=== PATIENT | male | born 1945 | race Caucasian/White ===

== ENCOUNTER 2016-04-06 20:29 | Inpatient (IN) ==
--- NOTE | 2016-04-06 20:43 | Emergency Department Note ---
Disposition Clinical Impression: Acute exacerbation of CHF (congestive heart failure) Qualifiers: Congestive heart failure type: unspecified congestive heart failure type Qualified Code(s): I50.9 - Heart failure, unspecified Disposition: Admitted As Inpatient Condition: Fair Referrals: NO,PCP [Non-Partnered Physician] - Time of Disposition: 22:25 Arrhythmia/Palpitations HPI - General Chief Complaint: UC Arrhythmia/Palpitations Stated Complaint: Bradycardia, [facility]: patient Limitations: no limitations Nursing Notes Reviewed: Yes Vital Signs Reviewed: Yes - History of Present Illness HPI Narrative: 70-year-old male history of CHF, CABG with triple bypass in July 2015, symptoms with shortness of breath headache, daughters at bedside states patient has had episodes of tachycardia and bradycardia home. He is transferred from the [place] in stable condition, they are concerned that he did have some evidence of possible bronchitis on his exam. He said that his BNP was 12,000. His troponin was negative. Did have a few "apneic episodes at the [place]. they state they have also noticed some recent weight gain, he currently takes frusemide 20 mg twice a day Pt Subjective Complaint: irregular heart beat Onset (ago): day(s) Duration: intermittent Severity: moderate Context: occurred during rest Associated symptoms: Reports: shortness of breath, cough. Denies: syncope - Related Data Home Medications Medication Instructions Recorded Confirmed Albuterol Sulfate [Albuterol 2 puff IH Q6HR PRN 03/09/15 07/05/15 Inhaler] Calcium Acetate [Phos-LO] 667 mg PO TIDWM 03/09/15 07/05/15 Isosorbide MONOnitrate (24 HR) 120 mg PO DAILY 03/09/15 07/05/15 [Imdur] Ranitidine HCl [Zantac] 150 mg PO DAILY 03/09/15 07/05/15 Allopurinol [Zyloprim 100 MG] 200 mg PO DAILY 07/05/15 07/05/15 Amlodipine [Norvasc] 5 mg PO BID 07/05/15 07/05/15 Atorvastatin [Lipitor] 80 mg PO HS 07/05/15 07/05/15 Carvedilol 3.125 mg PO BID 07/05/15 07/05/15 Cetirizine HCl [Zyrtec] 10 mg PO DAILY 07/05/15 07/05/15 Clopidogrel [Plavix] 75 mg PO DAILY 07/05/15 07/05/15 Furosemide [Lasix] 40 mg PO QAM 07/05/15 07/05/15 HydrALAZINE 50 mg PO TID 07/05/15 07/05/15 Lactose-Reduced Food [Ensure 1 bottle PO DAILY 07/05/15 07/05/15 Liquid] Loperamide [Imodium] 2 mg PO TID PRN 07/05/15 07/05/15 Magnesium Oxide [Magnesium] 400 mg PO BID 07/05/15 07/05/15 Nitroglycerin [Nitrostat] 0.4 mg SL AD PRN 07/05/15 07/05/15 Sertraline [Zoloft] 50 mg PO QAM 07/05/15 07/05/15 Previous Rx's Medication Instructions Recorded Aspirin 81 mg PO DAILY tab.chew 03/15/15 Levofloxacin [Levaquin] 500 mg PO DAILY #5 tablet 07/07/15 Allergies Allergy/AdvReac Type Severity Reaction Status Date / Time morphine Allergy Unknown Rash Verified 03/09/15 21:51 ampicillin [From Unasyn] Allergy Hives Verified 07/05/15 10:07 nicotine Allergy Rash Verified 07/05/15 10:06 sulbactam [From Unasyn] Allergy Hives Verified 07/05/15 10:07 lactose AdvReac Nausea Verified 03/09/15 19:53 Review of Systems: A 14 point ROS was obtained and was negative except as per below or as documented in the HPI. Constitutional: Denies: fever, chills, weakness, weight change Eyes: Denies: eye pain, eye discharge, vision change ENT: Denies: ear pain, throat pain, hearing loss, epistaxis, congestion, Cardiovascular: palpitations, dyspnea on exertion, Denies: chest pain, edema, syncope Respiratory: Denies: cough, dyspnea, wheezes, hemoptysis, stridor Gastrointestinal: Denies: abdominal pain, nausea, vomiting. diarrhea, constipation, hematemesis, hematochezia Genitourinary: Denies: urgency, dysuria, frequency, hematuria Musculoskeletal: Denies: back pain, neck pain, arthralgia, myalgia Integumentary: Denies: rash, abrasion, lesions Neurological: Denies: headache, weakness, numbness, paresthesias, confusion, abnormal gait Psychiatric: Denies: anxiety, depression, suicidal thoughts, homicidal thoughts , Endocrine: Denies: fatigue Hematological/Lymphatic: Denies: easy bleeding, easy bruising Allergic/Immunologic: Denies: facial swelling, urticaria All systems ED: reviewed and negative except as stated. Past Medical History - Past Medical History Attestation: Yes The following information was validated with the patient. [facility] Narrative: Patient's medications include, L. All 100 mg twice a day, amlodipine 5 mg, aspirin 81 mg daily, atorvastatin 80 mg daily Plavix 75 mg daily Lasix 20 mg daily, metoprolol 50 mg daily nitroglycerin, prednisone. Source: patient Medical history: Reports: arthritis, asthma, cardiomyopathy, CHF, COPD, coronary artery disease, GERD, hyperlipidemia, hypertension, myocardial infarction, osteoporosis, peripheral artery disease, renal disease, other Surgical history: Reports: angioplasty/stent, carotid endarterectomy, cholecystectomy, LE Bypass, LE vascular intervention, other Psychiatric history: Reports: anxiety, PTSD - Social History Smoking Status: Current every day smoker Smokeless Tobacco Status: No Alcohol use: Reports: none Drug use: Reports: none Physical Exam General: alert and oriented, in NAD, appears stated age, is pleasant and cooperative to exam Head: NCAT, no lesions Eyes: sclera anicteric, conjunctiva normal, PERRLA bilaterally, EOMI Bilaterally Ears: normal inspection, external ear wnl Nose: nasal septum nondeviated, sinuses nontender Throat: good dentition, mucous membranes moist Neck: no lymphadenopathy, trachea midline no deviation, no JVD Resp: Diminished breath sounds at bases CV midline incision well-healed consistent with previous CABG diminished Heart sounds normal S1 and S2, no m/g/r, Pulses +2 Rad, +2 DP/PT Abdomen: Soft, NTND, no hepatosplenomegaly, no hernias, Negative Rovsing's sign , Negative Hill's sign Back: normal inspection, no tenderness to palpation, Negative CVA tenderness bilaterally Neuro: A&O3, CN II-XII grossly intact bilaterally, no motor or sensory deficits bilaterally, gait normal, GCS 15 [id number] Ext: normal inspection, symmetric Active and Passive ROM UE and LE bilaterally, +2 pitting edema bilaterally Psych: normal mood, normal affect Skin: No rashes, skin warm, dry, intact - General Limitations: no limitations General appearance: alert, in no apparent distress Course Course Narrative: 70-year-old male with CHF exacerbation most likely, low pressures mildly elevated will diuresis and give nitroglycerin, lab work showed an elevated BNP, and findings consistent with pneumonia versus pleural effusions, we will recheck x-ray adding troponin and BNP, plan admitted for CHF exacerbation - Reevaluation(s) Reevaluation #1: Troponin negative, BNP 1200, chest x-ray shows bilateral effusions. Diuresis and give nitroglycerin, patient hospitalist for admission Vital Signs Temperature 97.2 F L 04/06/16 20:37 Pulse Rate 55 04/06/16 20:37 Respiratory Rate 18 04/06/16 20:37 Blood Pressure 186/86 04/06/16 20:37 O2 Sat by Pulse Oximetry 97 04/06/16 20:37 Temperature 97.2 F L 04/06/16 20:37 Pulse Rate 55 04/06/16 21:46 Respiratory Rate 18 04/06/16 21:46 Blood Pressure 179/82 04/06/16 21:46 O2 Sat by Pulse Oximetry 98 04/06/16 21:46 Oxygen Delivery Oxygen Delivery Room Air Arrhythmia/Palpitations - [facility] Narrative Medical decision making narrative: 70-year-old male with CHF exacerbation, diurese and given nitroglycerin in the ED, no indication for BiPAP at this time, admitted to Dr. Echavarria in stable condition, - Differential Diagnosis Differential Diagnosis: Likely: palpitations, ventricular premature beats - Medical Records Medical records reviewed: Yes I reviewed the patient's medical records. - Lab Data Lab results reviewed: Yes I reviewed the patient's lab results. Lab results narrative: [place] lab work shows white blood cell 6.2 hemoglobin 11.1 and hematocrit 35.2 platelets 145 Calcium 8.0 chloride 113 bicarbonate 21 creatinine 2.25 glucose 100 potassium 4.4 sodium 144 BUS and 28 GFR 30 Lab Results 04/06/16 04/06/16 Range/Units 21:55 21:55 Troponin I 0.02 (0-0.03) ng/mL B-Natriuretic Peptide 1267 H (0-100) pg/mL - Radiology Data Radiology results reviewed: Yes I reviewed the patient's radiology results. Chest X-Ray 04/06/16 20:42 IMPRESSION: Bilateral pleural effusions and bilateral lower lobe airspace disease greater on the right. CHF is suspected. D/ / 04/06/2016 21:58:07 Frankie Ryan MD / Jessenia Busby Interpreting Provider: Frankie Ryan MD - EKG Data EKG attestation: Yes I reviewed and interpreted this EKG. Rate: bradycardia (Sinus bradycardia rate of 54 bpm NJ 184 QRS 111, QTC 493,) ST segment depression in: v5, v6 T wave inversions noted in: v5, v6 Interpretation: nonspecific ST-T wave changes (Changes seen from EKG on 2015.) - Core Measures AMI Core Measures Followed: Yes Attestation Statement - Attestation Attestation: I examined this patient and my medical decision-making was reviewed with the ENVIRONMENT COORDINATOR/PA/Advanced Practice Nurse/Resident Physician. I agree with the documented findings, disposition and treatment plan as described except to the extent set forth below. Patient sent to the emergency department from the [facility]. Patient apparently was having periods of bradycardia alternating with tachycardia. Patient states he feels fine at this time. Exam shows him awake alert no distress. Clear lungs. Midline sternotomy scar. Heart regular. Plan. Cardiac workup.
[2016-04-06] MEDS ORDERED: Aspirin 81 MG TAB.CHEW PO ONE (21:18)
[2016-04-06] MEDS ORDERED: 0.9 % Sodium Chloride 1,000 ML IV ONE ×2 (21:49)
[2016-04-06] MEDS ORDERED: Furosemide 40 MG/4 ML VIAL IVP ONE (22:14)
[2016-04-06] MEDS ORDERED: Nitroglycerin 0.4 MG TAB.SUBL SL ONE (22:21)
[2016-04-06] MEDS ORDERED: Ondansetron 4 MG/2 ML VIAL IVP PRN (23:24)
--- NOTE | 2016-04-07 00:56 | Internal Med History&Physical ---
Date of Encounter: 04/07/16 Time of Encounter: 00:30 Assessment and Plan (1) CHF (congestive heart failure) Current visit: Yes Status: Acute Patient reports some shortness of breath and dry cough. Examination reveals bilateral basal crepitations and reduced breath sounds bilaterally. Chest x-ray personally reviewed-reveals bilateral pleural effusions right greater than left. Sternal wires are seen. Patient will be admitted to the hospital to inpatient status due to acute CHF. Echocardiogram. Cardiology consult. He will be given an additional dose of Lasix. Fluid restricted diet. Cycle cardiac enzymes. Expect the patient to stay in the hospital at least 2 midnights. Expected discharge disposition is to home. High risk due to risk of lethal arrhythmias. Qualifiers: Congestive heart failure type: unspecified congestive heart failure type Congestive heart failure chronicity: acute Qualified Code(s): I50.9 - Heart failure, unspecified (2) Bradycardia Current visit: Yes Status: Acute Patient was noted to be bradycardic at the [place] urgent care with heart rate in the 30s. His current heart rate is in the 50s. Hold AV sarah blocking agents. Suspicion for tachybradycardia syndrome. Cardiology consult. Cycle cardiac enzymes. (3) COPD (chronic obstructive pulmonary disease) Current visit: Yes Status: Chronic Stable and not an acute exacerbation. Home breathing treatments will be continued. Qualifiers: COPD type: chronic bronchitis Chronic bronchitis type: simple Qualified Code(s): J41.0 - Simple chronic bronchitis (4) CAD (coronary artery disease) Current visit: Yes Status: Chronic Continue aspirin, statin. Hold beta cassandra due to bradycardia. Cardiology consult. Obtain records from [place]. Qualifiers: Coronary Disease-Associated Artery/Lesion type: grayling artery [place] vs. transplanted heart: grayling heart Associated angina: without angina Qualified Code(s): I25.10 - Atherosclerotic heart disease of grayling coronary artery without angina pectoris (5) CKD (chronic kidney disease) stage 3, GFR 30-59 ml/min Current visit: Yes Status: Chronic Creatinine appears to be at baseline. Monitor renal function with diuresis. Avoid nephrotoxic agents and hypotension. (6) Tobacco abuse Current visit: Yes Status: Chronic Counseled regarding smoking cessation. Patient not interested to quit smoking. Internal Medicine - H&P: HPI Chief complaint: Bradycardia Admitted From: Hospital to Hospital Transfer Plans for Post Hospital Care: Home History of present illness: Mr. Pal is a 70 year old male with a history of coronary artery disease status post 5 vessel CABG in July 2015 at [facility] in [place] was brought to the emergency room at [facility] by the family due to variable pulse rate in low oxygen levels. Patient is accompanied by his daughter and granddaughter in the room who have assisted with providing history. History was also obtained by reviewing the records from emergency medical services and [place] visit records. Patient was found to have a pulse rate between 40-200 by the family at home and his saturations were found to be 85% and hence the patient was taken to the [place] emergency room. When his vitals were obtained by emergency services, his pulse rate was 53 woman at an desaturation was 91 percent on room air. The family states that the patient had up to 5 apneic episodes associated with heart rate dropping into the 30s while he was in the emergency room at [place]. Hence, the patient was transferred to [facility]. The daughter reports that the patient's usual dry weight is 174 pounds however, his recent weight is 208 pounds according to the daughter. She reports that he has also been complaining of some shortness of breath and chest pain. The patient himself denies any orthopnea or paroxysmal nocturnal dyspnea. He denies any fever or chills, runny nose, nasal congestion. He denies any nausea , vomiting, abdominal pain, diarrhea or constipation. Past Med Surg Social Fam HX - Past Medical History Attestation: Yes The following information was validated with the patient. Source: patient, obtained from family Medical history: arthritis, cardiomyopathy, CHF, COPD, coronary artery disease, GERD, hyperlipidemia, hypertension, myocardial infarction, osteoporosis, peripheral artery disease, renal disease, other Psychiatric history: anxiety, PTSD - Past Surgical History Surgical History: angioplasty/stent, carotid endarterectomy, cholecystectomy, coronary bypass (CABG) (5 vessel in 07/2015), LE Bypass, LE vascular intervention , other - Social History Smoking Status: Current every day smoker Packs per day: 1/3 Smokeless Tobacco Status: No Alcohol use: none Drug use: none Current living situation: Home, With Family - Family History Mother Living Status: Hx Family Cardiac Disorders: Yes (SD) Internal Medicine - H&P: Meds Albuterol Sulfate [Albuterol Inhaler] 2 puff IH Q6HR PRN 03/09/15 [History] Calcium Acetate [Phos-LO] 667 mg PO TIDWM 03/09/15 [History] Isosorbide MONOnitrate (24 HR) [Imdur] 120 mg PO DAILY 03/09/15 [History] Ranitidine HCl [Zantac] 150 mg PO DAILY 03/09/15 [History] Aspirin 81 mg PO DAILY tab.chew 03/15/15 [Rx] Allopurinol [Zyloprim 100 MG] 200 mg PO DAILY 07/05/15 [History] Amlodipine [Norvasc] 5 mg PO BID 07/05/15 [History] Atorvastatin [Lipitor] 80 mg PO HS 07/05/15 [History] Carvedilol 3.125 mg PO BID 07/05/15 [History] Cetirizine HCl [Zyrtec] 10 mg PO DAILY 07/05/15 [History] Clopidogrel [Plavix] 75 mg PO DAILY 07/05/15 [History] Furosemide [Lasix] 40 mg PO QAM 07/05/15 [History] HydrALAZINE 50 mg PO TID 07/05/15 [History] Lactose-Reduced Food [Ensure Liquid] 1 bottle PO DAILY 07/05/15 [History] Loperamide [Imodium] 2 mg PO TID PRN 07/05/15 [History] Magnesium Oxide [Magnesium] 400 mg PO BID 07/05/15 [History] Nitroglycerin [Nitrostat] 0.4 mg SL AD PRN 07/05/15 [History] Sertraline [Zoloft] 50 mg PO QAM 07/05/15 [History] Levofloxacin [Levaquin] 500 mg PO DAILY #5 tablet 07/07/15 [Rx] Allergies morphine Allergy (Unknown, Verified 03/09/15 21:51) Rash ampicillin [From Unasyn] Allergy (Verified 07/05/15 10:07) Hives nicotine Allergy (Verified 07/05/15 10:06) Rash Nicotine patch sulbactam [From Unasyn] Allergy (Verified 07/05/15 10:07) Hives lactose Adverse Reaction (Verified 03/09/15 19:53) Nausea All Systems PM: A 10-system review of systems was performed and is negative for pertinent findings except as documented above in the HPI. Review of systems: 10 systems have been reviewed and are negative except as mentioned in the history of present illness - Constitutional Vitals: Temp Pulse Resp BP Pulse Ox 97.2 F L 45 18 185/76 97 04/06/16 20:37 04/07/16 00:00 04/07/16 00:36 04/07/16 00:36 04/07/16 00:00 Exam: Gen.: Lying in bed. No acute distress. Eyes: Pupils equal, round and reactive to light. Extraocular muscles intact. ENT: Moist mucous membranes. No oropharyngeal erythema or discharge. Chest: Reduced breath sounds bilateral lower lobes with minimal crepitations. Midline CABG scar CVS: First and second heart sounds present. No murmurs, rubs or gallops. 2+ bilateral pitting pedal edema. Abdomen: Soft, nontender, nondistended. Bowel sounds present. No hepatosplenomegaly. Skin: No decubitus ulcers appreciated. DATA GOVERNANCE CONSULTANT: No focal neuro deficits present. Psychiatric: Alert, awake and oriented to time, place and person. Lymphatic system: No lymphadenopathy appreciated Internal Med - H&P Results - EKG Data -: EKG Interpreted by Myself EKG shows normal: sinus rhythm, ST-T waves (T inversions in lateral leads) - EKG Data Prior EKG available for review: yes When compared to previous EKG: there are significant changes Interpretation IM: suggestive of ischemia - Diagnostic Studies Chest x-ray Status: image reviewed by me (Bilateral pleural effusions and pulmonary vessel congestion suggestive of CHF)
[2016-04-07] MEDS ORDERED: Furosemide 40 MG/4 ML VIAL IVP ONE (01:21)
[2016-04-07] MEDS ORDERED: cloNIDine HCl 0.1 MG TABLET PO ONE (02:55)
[2016-04-07] MEDS ORDERED: hydrALAZINE 25 MG TABLET PO SCH (03:00)
[2016-04-07] MEDS: amLODIPine 5 MG TABLET PO SCH (04:55)
[2016-04-07 05:19] LABS: Hematocrit 38.5 % (37.5-50.1); Hemoglobin 12.5 g/dL (12.9-16.9); Mean Corpuscular HGB Conc 32.5 g/dL (31.6-35.5); Mean Corpuscular Hemoglobin 30.3 pg (28.0-33.3); Mean Corpuscular Volume 93.4 fL (83.0-100.0); Platelet Count 149 K/mcL (140-400); Red Blood Count 4.12 M/mcL (4.19-5.50); Red Cell Distribution Width 15.3 % (11.5-14.5)
[2016-04-07 05:54] LABS: Albumin 3.1 g/dL (3.5-5.0); Albumin/Globulin Ratio 0.8 (1.1-2.2); Bilirubin,Total 0.6 mg/dL (0.2-1.2); Calcium 9.1 mg/dL (8.6-10.8); Total Protein 7.1 g/dL (6.0-8.3)
--- NOTE | 2016-04-07 09:02 | Internal Med Progress Note ---
<Ant Busby - Last Filed: 04/07/16 13:55> Date of Encounter: 04/07/16 Time of Encounter: 08:58 - Assessment and plan (1) Pneumonia Current Visit: Yes Status: Acute Assessment and plan: Pt. with dry cough and SOB. CAP vs Aspiration PNA vs. CHFE Coarse Rhonchi throughout lung rico. Last Echo, July 2015: EF 60%, mild diastolic dysfunction, dilated RV, LAE, moderate mitral regurg, mild pulm htn CXR: BL pl. effusions. Chest CT: Moderate right and small left pleural effusion with adjacent opacities , right greater than left. Findings are compatible with pulmonary edema with probable superimposed right lower lobe pneumonia. Vitals stable, afebrile no tachy or tachypnea O2 currently sat 94% on RA. Urinary antigens pending Blood cx pending sputum cx pending Resp Panel: Negative Empiric abx started, Rocephin and Azithromycin (Day 1) Chest CT 04/07/16 09:20 IMPRESSION: 1. Moderate right and small left pleural effusion with adjacent opacities, right greater than left. Findings are compatible with pulmonary edema with probable superimposed right lower lobe pneumonia. 2. Severe atherosclerosis. 3. Cardiomegaly. 4. Reactive mediastinal lymph nodes. D/ / 04/07/2016 10:55:15 Petty Gill MD / [facility] Interpreting Provider: Petty Gill MD Qualifiers: Pneumonia type: due to unspecified organism Laterality: bilateral Lung location: lower lobe of lung Qualified Code(s): J18.9 - Pneumonia, unspecified organism (2) CHF (congestive heart failure) Current Visit: Yes Status: Acute Assessment and plan: Patient reports some shortness of breath and dry cough. Lung field reveal global coarse rhonchi. Chest x-ray reveals bilateral pleural effusions right greater than left. Trop - x2 Has received two IVP of 40mg Lasix, is currently on 1.5l fluid restriction No LE edema noted. BNP 1267. Hx of Stage IV CKD, so BNP may not be related to acute CHFE. Echocardiogram. Cardiology consulted. IV lasix 40mg BID. Hx of CKD, monitor renal function closely. Chest X-Ray 04/06/16 20:42 IMPRESSION: Bilateral pleural effusions and bilateral lower lobe airspace disease greater on the right. CHF is suspected. D/ / 04/06/2016 21:58:07 Frankie Ryan MD / Jessenia Busby Interpreting Provider: Frankie Ryan MD Qualifiers: Congestive heart failure type: unspecified congestive heart failure type Congestive heart failure chronicity: acute Qualified Code(s): I50.9 - Heart failure, unspecified (3) Bradycardia Current Visit: Yes Status: Acute Assessment and plan: suspected, asymptomatic Per family patient has been having bradycardia at home At the [facility] he was found to be bradycardic into the 30's Cards consulted On 25mg qday Toprol XL -Will hold d/t bradycardia Has had a low HR of 49 since admission Trop - X2 (4) CAD (coronary artery disease) Current Visit: Yes Status: Chronic Assessment and plan: CAD s/p 5 vessel CABG Continue home meds except BB d/t bradycardia ASA, plavix, statin. Qualifiers: Coronary Disease-Associated Artery/Lesion type: [place] artery [place] vs. transplanted heart: [place] heart Associated angina: without angina Qualified Code(s): I25.10 - Atherosclerotic heart disease of [place] coronary artery without angina pectoris (5) CKD (chronic kidney disease) stage 4, GFR 15-29 ml/min Current Visit: No Status: Acute Assessment and plan: Personnel Representative close to baseline, 2.30 GFR: 28, appears to be at baseline will continue to diurese slowly for pleural effusions, and monitor renal fxn. (6) COPD (chronic obstructive pulmonary disease) Current Visit: Yes Status: Chronic Assessment and plan: still smoking. continue home meds. Qualifiers: COPD type: chronic bronchitis Chronic bronchitis type: simple Qualified Code(s): J41.0 - Simple chronic bronchitis (7) Tobacco abuse Current Visit: Yes Status: Chronic Assessment and plan: still smoking. smoking cessation counseling given (8) DVT prophylaxis Current Visit: No Status: Acute Assessment and plan: SCD's - Subjective Interval history: Patient seen and examined. This is a [facility] patient who submitted for possible CHF exacerbation last night. He has a history of coronary artery disease status post 5 vessel cabbage in 2016. He went to the [facility] for slow heart rate and then a fast heart rate along with oxygen desaturations. He appears to be encephalopathic but it is unclear at this time if that is his baseline are not. Was relayed by his family that at home they found his pulse rate to be between 40 and 200 and his oxygen saturations were 85%. This morning patient is awake and alert but only oriented times 2. He appears to be confused. He told me he fell yesterday but he did not have his head. He denies any chest pain and shortness of breath nausea vomiting diarrhea. He is a very poor historian. - Constitutional Vitals: Temp Pulse Resp BP Pulse Ox 97.3 F L 49 15 132/51 96 04/07/16 07:49 04/07/16 07:49 04/07/16 07:49 04/07/16 07:49 04/07/16 07:49 General appearance: Present: disheveled, A&O X 2. Absent: answers questions appropriately (slow to respond. ) - Head Head exam: Present: atraumatic, normocephalic - Eye Eye exam: Present: PERRL, conjuntiva pink, sclera anicteric - Neck Neck exam general surgery: Present: supple, trachea midline. Absent: lymphadenopathy - Respiratory Respiratory exam: Present: rhonchi. Absent: CTAB - Cardiovascular Cardiovascular exam: Present: RRR, +S1, +S2 - GI/Abdominal GI/Abdominal exam: Present: normal bowel sounds, soft, no peritoneal signs. Absent: distended, tenderness - Extremities Exam Extremities exam: Present: warm, radial pulses palpable and symetrical. Absent : calf tenderness, cyanotic, pedal edema - Neurological Exam Neurological exam: Present: alert, altered (unclear if baseline or not), CN II- XII intact, no focal deficits. Absent: oriented X3, speech deficit - Skin Skin exam: Present: dry, intact Internal Medicine: Result - Labs CBC & Chem 7: 04/07/16 04:37 04/07/16 12:46 Labs: Short CBC 04/07/16 Range/Units 04:37 WBC 5.7 (4.3-11.1) K/mcL Hgb 12.5 L (12.9-16.9) g/dL Hct 38.5 (37.5-50.1) % Plt Count 149 (140-400) K/mcL BMP 04/07/16 04:37 Sodium 140 Potassium 5.0 H Chloride 113 H Carbon Dioxide 18 L BUN 30 H Creatinine 2.30 H Glucose 147 H Calcium 9.1 Cardiac Enzymes 04/07/16 Range/Units 04:37 Troponin I 0.01 (0-0.03) ng/mL Liver Function 04/07/16 Range/Units 04:37 Total Bilirubin 0.6 (0.2-1.2) mg/dL AST 23 (5-34) Units/L ALT 12 (0-55) Units/L Alkaline Phosphatase 172 H (38-126) Units/L Albumin 3.1 L (3.5-5.0) g/dL - VTE Documentation of Mechanical Device: Intermittent pneumatic compression device Consult Discharge Plan - Plan [facility]errals: [facility] [Primary Care Provider[facility] - <Beryl Angulo - Last Filed: 04/07/16 19:05> Date of Encounter: 04/07/16 - Constitutional Vitals: Temp Pulse Resp BP Pulse Ox 97.5 F L 55 18 120/54 94 L 04/07/16 16:18 04/07/16 16:18 04/07/16 16:18 04/07/16 16:18 04/07/16 16:18 Internal Medicine: Result - Labs CBC & Chem 7: 04/07/16 04:37 04/07/16 12:46 Labs: Short CBC 04/07/16 Range/Units 04:37 WBC 5.7 (4.3-11.1) K/mcL Hgb 12.5 L (12.9-16.9) g/dL Hct 38.5 (37.5-50.1) % Plt Count 149 (140-400) K/mcL BMP 04/07/16 04/07/16 04:37 12:46 Sodium 140 140 Potassium 5.0 H 4.9 H Chloride 113 H 112 H Carbon Dioxide 18 L 19 BUN 30 H 34 H Creatinine 2.30 H 2.38 H Glucose 147 H 139 H Calcium 9.1 8.7 Cardiac Enzymes 04/07/16 04/07/16 Range/Units 04:37 08:43 Troponin I 0.01 0.02 (0-0.03) ng/mL Liver Function 04/07/16 04/07/16 Range/Units 04:37 12:46 Total Bilirubin 0.6 (0.2-1.2) mg/dL AST 23 (5-34) Units/L ALT 12 (0-55) Units/L Alkaline Phosphatase 172 H (38-126) Units/L Albumin 3.1 L 2.8 L (3.5-5.0) g/dL Urine 04/07/16 Range/Units 18:06 Urine Color Light Yellow (Yellow) Urine Clarity Clear (Clear) Urine pH 6.0 (5.0-8.0) pH Units Ur Specific [place] 1.012 (1.010-1.025) Urine Protein 100 H (Neg-Trace) mg/dL Urine Glucose (UA) Normal (Normal) mg/dL - Impressions Impressions Chest CT 04/07/16 09:20 IMPRESSION: 1. Moderate right and small left pleural effusion with adjacent opacities, right greater than left. Findings are compatible with pulmonary edema with probable superimposed right lower lobe pneumonia. 2. Severe atherosclerosis. 3. Cardiomegaly. 4. Reactive mediastinal lymph nodes. D/ / 04/07/2016 10:55:15 Petty Gill MD / [employer] Interpreting Provider: Petty Gill MD Head CT 04/07/16 09:22 IMPRESSION: No acute intracranial abnormality. D/ / Miguel Angel Cheng MD / Miguel Angel Cheng MD Interpreting Provider: Miguel Angel Cheng MD - Attending Attestation I examined this patient and my medical decision-making was reviewed with the Resident Physician. I agree with the documented findings, disposition and treatment plan as described except to the extent set forth below. the sob possible 2/2 pneumonia and the pleural effusion may be parapneumonic which is more on the right. however, patinet does not have any fever or leucocytosis. will emperically treat for pneumonia at this time and follow cx results. ECHO with normal LV and RV function. as per cardio, the sinus bradycardia does not need further evaluation at this time. BB has been held.
[2016-04-07] MEDS: Aspirin Enteric Coated 81 MG Tablet PO SCH (09:33)
[2016-04-07] MEDS: Calcium Acetate 667 MG CAPSULE PO SCH ×3 (09:33→16:29)
[2016-04-07] MEDS: Isosorbide MONOnitrate (24 HR) 60 MG TAB.ER.24H PO SCH (09:34)
--- NOTE | 2016-04-07 10:36 | Electrocardiograph Report ---
[facility] Test Date: 2016-04-06 Pat Name: Сергей Pal Department: 105 Room: 2A55 Gender: M Maintenance Superintendent: ELAYNE : 1945 Requested By: Wade Browne Order Number: [id number] Reading MD: Pradeep Lott DO Measurements Intervals [place] Rate: 54 P: 18 IA: 184 QRS: 22 QRSD: 111 T: 152 QT: 506 QTc: 493 Interpretive Statements Sinus bradycardia Anteroseptal infarction, age undetermined Lateral ST-T chagnes possibly due to ischemia Electronically Signed On 04-07-16 10:35:35 EST by Pradeep Lott DO
[2016-04-07 13:10] LABS: Albumin 2.8 g/dL (3.5-5.0); Calcium 8.7 mg/dL (8.6-10.8); Phosphorous 4.3 mg/dL (2.3-4.7); Potassium 4.9 mEq/L (3.5-4.5)
--- NOTE | 2016-04-07 13:22 | ECHO - Doppler Report ---
Echocardiogram Name: Сергей Pal Date of Study: 04/07/2016 Date: 1945 Ht: 71.0 in Medical Record#: [id number] Age: 70 Wt: 199.0 lb Gender: Male BSA: 2.1 Order #: [id number] Location: [facility] Room #: 2A55 Reading Physician: Pradeep Lott DO, FACC, GLORIA, SIMONA Elementary Reading Specialist: Monika Rich, RVT, [facility] Ordering Physician: Tim Tucker MD Primary Physician: [facility] Indications: Shortness of breath Impressions: LVEF 55%. Normal LV chamber size and function. Mild concentric left ventricular hypertrophy. Atypical septal motion consistent with bundle branch block. Mild left ventricular diastolic dysfunction. Normal right ventricular structure and function. Moderately dilated left atrium. Mild aortic regurgitation. Mild mitral regurgitation. Borderline mild pulmonary hypertension. Estimated RVSP is 36 mmHg. There is a small inferior and inferolateral pericardial effusion present. No evidence of tamponade. Left Ventricular Wall Motion: Rest Echo Findings All wall segments showed normal motion. Findings: Study Quality * Technically adequate exam. ECG Findings * Sinus bradycardia with a bundle branch block. Left Ventricle * LVEF 55%. * Normal LV chamber size and function. * Mild concentric left ventricular hypertrophy. * Atypical septal motion consistent with bundle branch block. * Mild left ventricular diastolic dysfunction. Right Ventricle * Normal right ventricular structure and function. Left Atrium * Moderately dilated left atrium. Right Atrium * Mildly dilated right atrium. Interatrial Septum * No evidence of PFO by color Doppler. Aortic Valve * Trileaflet aortic valve. * Mildly calcified aortic valve leaflets. * Mild aortic regurgitation. * No aortic stenosis. Mitral Valve * Mild mitral annular calcification * Mildly thickened mitral valve leaflets. * Mild mitral regurgitation. * No mitral stenosis. Tricuspid Valve * Normal tricuspid valve structure and function. * Trace tricuspid regurgitation. * Borderline mild pulmonary hypertension. * Estimated RVSP is 36 mmHg. * Estimated RA pressure is 5 mmHg. Pulmonic Valve * Normal pulmonic valve structure and function. * No pulmonic regurgitation. Aorta * Normally sized aortic root. Pericardium * There is a small inferior and inferolateral pericardial effusion present. * No evidence of tamponade. IVC * Normal IVC dimensions and inspiratory collapse. Pulmonary Artery * Normal visualized portions of the main pulmonary artery. History Hypertension Hypercholesteremia History of CAD/PTCA Myocardial Infarction Congestive Heart Failure 07/06/2015 a Previous Echo was performed. Measurements: BP: 182/ 87 2D Normal Values IVSd: 1.30 cm 0.6 - 1.0 cm LVIDd: 5.50 cm 3.7 - 5.6 cm LVPWd: 1.30 cm 0.6 - 1.1 cm LVIDs: 4.40 cm 1.5 - 3.6 cm AO: 2.70 cm < 4.0 cm LA: 4.70 cm 2.0 - 4.0cm %FS: 24.10 cm >25 % LA volume: 87 Mitral Valve Peak E:.97 m/sec Peak A:.87 m/sec E/A Ratio:1.1 Peak E' Lat Luis:4.58 cm/s Peak E' Med Luis:3.02 cm/s E/E' Lat Ratio:21.1 E/E' Med Ratio:32 Aortic Valve AI pressure Half-time: 863.00 msec Tricuspid Valve TV Regurg Peak Grad: 31.00mmHg TV Regurg Peak Luis: 2.79m/sec Updated by Pradeep Lott DO, FACChristiane, GLORIA, SIMONA on 04/07/2016 1:16:01 PM electronically signed on 04/07/2016 1:17:03 PM with status of Final Wall Motion Ugart[place]: 1=Normal, 2=Hypokinesis, 3=Akinesis, 4=Dyskinesis, 5=Aneurysmal, 6=Hyperkinetic, X=Not Visualized (Blank)=Missing
[2016-04-07] MEDS: Furosemide 40 MG/4 ML VIAL IVP SCH ×2 (13:27→21:04)
[2016-04-07 13:40] LABS: Adenovirus Not Detected (Not Detect); Bordetella Pertussis Not Detected (Not Detect); Chlamydophila pneumoniae Not Detected (Not Detect); Coronavirus 229E Not Detected (Not Detect); Coronavirus HKU1 Not Detected (Not Detect); Coronavirus NL63 Not Detected (Not Detect); Coronavirus OC43 Not Detected (Not Detect); Human Metapneumovirus Not Detected (Not Detect); Human Rhinovirus/Enterovirus Not Detected (Not Detect); Influenza A Subtype 2009 H1 Not Detected (Not Detect); Influenza A Untypeable Not Detected (Not Detect); Influenza B Not Detected (Not Detect); Mycoplasma pneumoniae Not Detected (Not Detect); Parainfluenza Virus 1 Not Detected (Not Detect); Parainfluenza Virus 2 Not Detected (Not Detect); Parainfluenza Virus 3 Not Detected (Not Detect); Parainfluenza Virus 4 Not Detected (Not Detect); Respiratory Syncytial Virus Not Detected (Not Detect)
[2016-04-07] MEDS: Azithromycin 500 MG in D5% in Water 250 ML IVPB SCH (15:04)
--- NOTE | 2016-04-07 17:58 | Cardiology Consult Note ---
Date of Encounter: 04/07/16 Time of Encounter: 13:00 Assessment and Plan (1) SOB (shortness of breath) Current Visit: Yes Status: Acute Mr. Pal appears comfortable presently and not SOB. Etiology of his presentation appears secondary to pneumonia. There's no clear evidence of heart failure. His echo returned with normal LV and RV function. (2) Bradycardia Current Visit: Yes Status: Acute Patient's heart rate has been in the 40 and 50's while sleeping which is normal. There is no evidence of high degree AVB. It is reasonable to hold BB at this time. (3) CAD (coronary artery disease) Current Visit: Yes Status: Chronic Mr. Pal declined intervention in June 2015. Troponins have been negative during this hospitalization and EF preserved. No further testing is warranted at this time. Qualifiers: Coronary Disease-Associated Artery/Lesion type: [place] artery [place] vs. transplanted heart: [place] heart Associated angina: without angina Qualified Code(s): I25.10 - Atherosclerotic heart disease of [place] coronary artery without angina pectoris Discussion w patient/family: The patient's family was not present at the bedside. We have no further recommendations at this time. We will sign off. Please call with questions. History of Present Illness Consult date: 04/07/16 Requesting physician: Tim Tucker Consult reason: CAD, bradycardia, CHF Chief complaint: SOB History of present illness: Mr. Pal is a 70 year old male presenting with SOB. He was discovered to have Pneumonia on chest CT and has bilateral pleural effusions. Per family report, his pulse ox was reading heart rates in the 40's to 200's yesterday. Telemetry has demonstrated only sinus bradycardia. The patient is very sleepy when taking history and provides very little. No family is at the bedside. Medical records were reviewed. His history is significant for obstructive CAD. He was admitted in June 2015 and underwent LHC demonstrating significant disease. CABG was recommended. Patient was accepted at [facility] and awaiting transfer but declined and left AMA. Past Med Surg Social Fam HX - Past Medical History Source: unable to obtain, old records reviewed Medical history: arthritis, cardiomyopathy, CHF, COPD, coronary artery disease, GERD, hyperlipidemia, hypertension, myocardial infarction, osteoporosis, peripheral artery disease, renal disease, other Psychiatric history: anxiety, PTSD - Past Surgical History Surgical History: angioplasty/stent, carotid endarterectomy, cholecystectomy, coronary bypass (CABG) (5 vessel in 07/2015), LE Bypass, LE vascular intervention , other - Social History Smoking Status: Current every day smoker Packs per day: 1/ Smokeless Tobacco Status: No Alcohol use: none Drug use: none - Family History Mother History Unknown: Yes Living Status: Hx Family Cardiac Disorders: Yes (IA) Medications and Allergies Albuterol Sulfate [Albuterol Inhaler] 2 puff IH Q6HR PRN 03/09/15 [History] Calcium Acetate [Phos-LO] 667 mg PO TIDWM 03/09/15 [History] Ranitidine HCl [Zantac] 150 mg PO DAILY 03/09/15 [History] Aspirin 81 mg PO DAILY tab.chew 03/15/15 [Rx] Allopurinol [Zyloprim 100 MG] 200 mg PO DAILY 07/05/15 [History] Amlodipine [Norvasc] 5 mg PO DAILY 07/05/15 [History] Atorvastatin [Lipitor] 80 mg PO HS 07/05/15 [History] Cetirizine HCl [Zyrtec] 10 mg PO DAILY 07/05/15 [History] Clopidogrel [Plavix] 75 mg PO DAILY 07/05/15 [History] Furosemide [Lasix] 40 mg PO QAM 07/05/15 [History] Lactose-Reduced Food [Ensure Liquid] 1 bottle PO DAILY 07/05/15 [History] Loperamide [Imodium] 2 mg PO TID PRN 07/05/15 [History] Nitroglycerin [Nitrostat] 0.4 mg SL AD PRN 07/05/15 [History] Sertraline [Zoloft] 50 mg PO QAM 07/05/15 [History] Carboxymethylcellulos/Glycerin [Refresh Optive Gel Eye Drops] 1 drop OP QID 05/23 [History] Cholecalciferol (D-3) [Vitamin D] 1,000 unit PO DAILY 04/07/16 [History] GuaiFENesin/Dextromethorphan [Child Triaminic Cgh-Congst Syr] 5 ml PO Q6H PRN [History] Lidocaine 4% CRM (LMX) [Lmx 4] 1 appl TP TID 04/07/16 [History] Metoprolol XL (24 HR) Succ [Toprol XL] 25 mg PO DAILY 04/07/16 [History] Nitroglycerin [Nitro-Dur] 1 patch TP DAILY 04/07/16 [History] Potassium Chloride [K-Tab ER] 10 meq PO DAILY 04/07/16 [History] Pregabalin [Lyrica] 50 mg PO BID 04/07/16 [History] Ropinirole [Requip] 1 mg PO HS 04/07/16 [History] Tiotropium [Spiriva] 2 puff IH DAILY 04/07/16 [History] Allergies morphine Allergy (Unknown, Verified 03/09/15 21:51) Rash ampicillin [From Unasyn] Allergy (Verified 07/05/15 10:07) Hives nicotine Allergy (Verified 07/05/15 10:06) Rash Nicotine patch sulbactam [From Unasyn] Allergy (Verified 07/05/15 10:07) Hives lactose Adverse Reaction (Verified 03/09/15 19:53) Nausea ROS unobtainable: due to mental status All Systems Review: A 10-system review of systems was performed and is negative for pertinent findings except as documented above in the HPI. Physical Examination Vital Signs, Last 4 Hours Temp Pulse Resp BP Pulse Ox 04/07/16 16:18 97.5 F L 55 18 120/54 94 L General: No Apparent Distress, Other (sleepy, not conversant) HEENT: Atraumatic, Mucus Membranes Moist Neck: Other (JVP difficult to evaluate-patient laying on side and sleeping) Cardiac: Reg Rate and Rhythm, Normal S1 and S2, No Murmur Lungs: Other (poor air entry throughout) Neuro: Other (somnolent, arousable) Extremities: Other (no significant LE edema) Results 04/07/16 04:37 04/07/16 12:46 Lab Results 04/07/16 04/07/16 04/07/16 04:37 04:37 04:37 WBC 5.7 Hgb 12.5 L Hct 38.5 Plt Count 149 Sodium 140 Potassium 5.0 H Chloride 113 H Carbon Dioxide 18 L BUN 30 H Creatinine 2.30 H Glucose 147 H Calcium 9.1 Total Bilirubin 0.6 AST 23 ALT 12 Alkaline Phosphatase 172 H Troponin I 0.01 04/07/16 04/07/16 08:43 12:46 WBC Hgb Hct Plt Count Sodium 140 Potassium 4.9 H Chloride 112 H Carbon Dioxide 19 BUN 34 H Creatinine 2.38 H Glucose 139 H Calcium 8.7 Total Bilirubin AST ALT Alkaline Phosphatase Troponin I 0.02 - Imaging and Cardiology Chest Xray: report reviewed Echo: report reviewed - EKG Interpretation EKG results cardiology: personally reviewed Consult Discharge Plan - Plan [facility]errals: [facility] [Primary Care Provider] -
[2016-04-07 18:31] LABS: Bilirubin,Urine Negative (Negative); Blood,Urine Negative (Negative); Glucose,Urine (UA) Normal (Normal); Ketones,Urine Negative (Negative); Leukocyte Esterase,Urine Negative (Negative); Nitrite,Urine Negative (Negative); Protein,Urine 100 mg/dL (Neg-Trace); Specific Gravity,Urine 1.012 (1.010-1.025); Urobilinogen,Urine Normal (Normal)
[2016-04-07 18:33] LABS: Color,Urine Light Yellow (Yellow)
[2016-04-07 18:34] LABS: Clarity,Urine Clear (Clear)
[2016-04-07 19:01] LABS: Bacteria,Urine None Seen per hpf (None-Few); Hyaline Casts,Urine None Seen per lpf (None-Few); RBC,Urine 0-3 per hpf (0-3); Squamous Epithelial Cell,Urine Few per lpf (None-Few)
[2016-04-07] MEDS: rOPINIRole 1 MG TABLET PO SCH (21:04)
[2016-04-08 07:28] LABS: Basophils % 0.4 %; Eosinophils # 0.1 K/mcL (0.0-0.6); Eosinophils % 0.7 %; Hematocrit 31.9 % (37.5-50.1); Immature Granulocytes % 0.2 % (0-4); Lymphocytes # 1.4 K/mcL (0.6-4.6); Lymphocytes % 14.3 %; Mean Corpuscular HGB Conc 32.3 g/dL (31.6-35.5); Mean Corpuscular Hemoglobin 29.8 pg (28.0-33.3); Mean Corpuscular Volume 92.2 fL (83.0-100.0); Mean Platelet Volume 10.3 fL (9.4-12.4); Monocytes # 0.5 K/mcL (0.0-1.3); Monocytes % 5.2 %; Neutrophils # 7.5 K/mcL (1.6-8.9); Platelet Count 150 K/mcL (140-400); Red Blood Count 3.46 M/mcL (4.19-5.50); Red Cell Distribution Width 15.8 % (11.5-14.5); Segmented Neutrophils % 79.2 %
[2016-04-08 07:35] LABS: Hemoglobin 10.3 g/dL (12.9-16.9)
[2016-04-08 07:41] LABS: Calcium 8.6 mg/dL (8.6-10.8); Phosphorous 3.6 mg/dL (2.3-4.7); Potassium 4.3 mEq/L (3.5-4.5)
[2016-04-08] MEDS: Tiotropium 18 MCG inhalation IH SCH (08:07)
[2016-04-08 08:12] LABS: Calcium 8.5 mg/dL (8.6-10.8)
[2016-04-08 08:13] LABS: Potassium 4.8 mEq/L (3.5-4.5)
[2016-04-08 08:27] LABS: Basophils % 0.2 %; Eosinophils # 0.1 K/mcL (0.0-0.6); Eosinophils % 0.9 %; Hemoglobin 9.9 g/dL (12.9-16.9); Immature Granulocytes % 0.2 % (0-4); Lymphocytes # 1.4 K/mcL (0.6-4.6); Lymphocytes % 14.7 %; Mean Corpuscular HGB Conc 31.9 g/dL (31.6-35.5); Mean Corpuscular Hemoglobin 29.5 pg (28.0-33.3); Mean Corpuscular Volume 92.3 fL (83.0-100.0); Mean Platelet Volume 10.5 fL (9.4-12.4); Monocytes # 0.5 K/mcL (0.0-1.3); Monocytes % 5.4 %; Neutrophils # 7.3 K/mcL (1.6-8.9); Platelet Count 143 K/mcL (140-400); Red Blood Count 3.36 M/mcL (4.19-5.50); Red Cell Distribution Width 15.6 % (11.5-14.5); Segmented Neutrophils % 78.6 %
[2016-04-08] MEDS: Aspirin Enteric Coated 81 MG Tablet PO SCH (09:31)
[2016-04-08] MEDS: Furosemide 40 MG/4 ML VIAL IVP SCH ×2 (09:31→20:24)
[2016-04-08] MEDS: Calcium Acetate 667 MG CAPSULE PO SCH ×3 (09:31→17:20)
[2016-04-08] MEDS: amLODIPine 5 MG TABLET PO SCH (09:32)
[2016-04-08] MEDS: Isosorbide MONOnitrate (24 HR) 60 MG TAB.ER.24H PO SCH (09:32)
[2016-04-08] MEDS: Azithromycin 500 MG in D5% in Water 250 ML IVPB SCH (13:28)
--- NOTE | 2016-04-08 16:02 | Internal Med Progress Note ---
Date of Encounter: 04/08/16 Time of Encounter: 15:59 - Assessment and plan (1) Bradycardia Current Visit: Yes Status: Acute Assessment and plan: suspected, asymptomatic Per family patient has [facility] 30's Cards consulted On 25mg qday Toprol XL -Will hold d/t bradycardia was seen by cardio and do not need any further intervention. (2) CHF (congestive heart failure) Current Visit: Yes Status: Acute Assessment and plan: Chest x-ray reveals bilateral pleural effusions right greater than left. José bro Has received two IVP of 40mg Lasix, is currently on 1.5l fluid restriction No LE edema noted. BNP 1267. cardio recommends no further evaluation at this time Chest X-Ray 04/06/16 20:42 IMPRESSION: Bilateral pleural effusions and bilateral lower lobe airspace disease greater on the right. CHF is suspected. D/ / 04/06/2016 21:58:07 Frankie Ryan MD / Jessenia Busby Interpreting Provider: Frankie Ryan MD Qualifiers: Congestive heart failure type: unspecified congestive heart failure type Congestive heart failure chronicity: acute Qualified Code(s): I50.9 - Heart failure, unspecified (3) Pneumonia Current Visit: Yes Status: Acute Assessment and plan: Pt. with dry cough and SOB. CAP possible aspiration pneumonia. CXR: BL pl. effusions. Chest CT: Moderate right and small left pleural effusion with adjacent opacities , right greater than left. Findings are compatible with pulmonary edema with probable superimposed right lower lobe pneumonia. O2 currently sat 94% on RA. legionella and strep antigen negative. will stop the azithromycin. Blood cx pending sputum cx pending Resp Panel: Negative continue the rocephin day2. Chest CT 04/07/16 09:20 IMPRESSION: 1. Moderate right and small left pleural effusion with adjacent opacities, right greater than left. Findings are compatible with pulmonary edema with probable superimposed right lower lobe pneumonia. 2. Severe atherosclerosis. 3. Cardiomegaly. 4. Reactive mediastinal lymph nodes. D/ / 04/07/2016 10:55:15 Petty Gill MD / thelma Interpreting Provider: Petty Gill MD Qualifiers: Pneumonia type: due to unspecified organism Laterality: bilateral Lung location: lower lobe of lung Qualified Code(s): J18.9 - Pneumonia, unspecified organism (4) CAD (coronary artery disease) Current Visit: Yes Status: Chronic Assessment and plan: CAD s/p 5 vessel CABG Continue home meds except BB d/t bradycardia ASA, plavix, statin. Qualifiers: Coronary Disease-Associated Artery/Lesion type: [place] artery [place] vs. transplanted heart: [place] heart Associated angina: without angina Qualified Code(s): I25.10 - Atherosclerotic heart disease of [place] coronary artery without angina pectoris (5) CKD (chronic kidney disease) stage 3, GFR 30-59 ml/min Current Visit: Yes Status: Chronic - Time Spent With Patient 25 - 35 minutes - Subjective Interval history: seen at the bedside, denies any compliants. denies any chest pain, palpitation, c/o productive sputum with cough. no fever. - Constitutional Vitals: Temp Pulse Resp BP Pulse Ox 97.5 F L 65 16 184/70 94 L 04/08/16 11:53 04/08/16 11:53 04/08/16 11:53 04/08/16 11:53 04/08/16 11:53 General appearance: Present: disheveled, A&O X 2. Absent: answers questions appropriately (slow to respond. ) Exam: neck- supple chest- b/l clear, no added sounds cvs-s1 and s2, no mr/g abd-soft, non tender, bs are present ext- no edema Internal Medicine: Result - Labs CBC & Chem 7: 04/08/16 07:51 04/08/16 07:51 Labs: Short CBC 04/08/16 04/08/16 Range/Units 06:31 07:51 WBC 9.5 D 9.3 (4.3-11.1) K/mcL Hgb 10.3 L D 9.9 L (12.9-16.9) g/dL Hct 31.9 L 31.0 L (37.5-50.1) % Plt Count 150 143 (140-400) K/mcL Neutrophils # 7.5 7.3 (1.6-8.9) K/mcL BMP 04/08/16 04/08/16 06:31 07:51 Sodium 141 141 Potassium 4.3 4.8 H Chloride 111 H 111 H Carbon Dioxide 22 22 BUN 40 H 40 H Creatinine 2.45 H 2.45 H Glucose 104 H 102 H Calcium 8.6 8.5 L Urine 04/07/16 Range/Units 18:06 Urine Color Light Yellow (Yellow) Urine Clarity Clear (Clear) Urine pH 6.0 (5.0-8.0) pH Units Ur Specific [place] 1.012 (1.010-1.025) Urine Protein 100 H (Neg-Trace) mg/dL Urine Glucose (UA) Normal (Normal) mg/dL - Impressions Impressions Chest CT 04/07/16 09:20 IMPRESSION: 1. Moderate right and small left pleural effusion with adjacent opacities, right greater than left. Findings are compatible with pulmonary edema with probable superimposed right lower lobe pneumonia. 2. Severe atherosclerosis. 3. Cardiomegaly. 4. Reactive mediastinal lymph nodes. D/ / 04/07/2016 10:55:15 Petty Gill MD / thelma Interpreting Provider: Petty Gill MD - VTE Documentation of Mechanical Device: Intermittent pneumatic compression device Consult Discharge Plan - Plan [facility]errals[facility] [Primary Care Provider[facility] -
[2016-04-08] MEDS: hydrALAZINE 10 MG TABLET PO SCH ×2 (16:17→17:20)
[2016-04-08] MEDS: *HR* Heparin 5,000 UNIT/ML VIAL SQ SCH (17:20)
[2016-04-08] MEDS: rOPINIRole 1 MG TABLET PO SCH (20:24)
[2016-04-08] MEDS: Acetaminophen 325 MG TABLET PO PRN (20:27)
[2016-04-09] MEDS: hydrALAZINE 10 MG TABLET PO SCH ×4 (00:11→17:15)
[2016-04-09] MEDS ORDERED: Magnesium Sulfate 1 GM in D5% in Water 100 ML IVPB ONE (00:24)
[2016-04-09 01:30] LABS: Magnesium 1.9 mg/dL (1.6-2.6)
[2016-04-09 01:36] LABS: Calcium 8.9 mg/dL (8.6-10.8); Potassium 4.7 mEq/L (3.5-4.5)
[2016-04-09 01:59] LABS: Thyroid Stimulating Hormone 1.336 mcIU/mL (0.350-4.840)
[2016-04-09] MEDS: *HR* Heparin 5,000 UNIT/ML VIAL SQ SCH ×2 (06:17→17:17)
[2016-04-09] MEDS: Tiotropium 18 MCG inhalation IH SCH (08:23)
[2016-04-09] MEDS ORDERED: Aspirin 81 MG TAB.CHEW PO SCH (09:00)
[2016-04-09] MEDS: Furosemide 40 MG/4 ML VIAL IVP SCH ×2 (09:44→20:37)
[2016-04-09] MEDS: Isosorbide MONOnitrate (24 HR) 60 MG TAB.ER.24H PO SCH (09:45)
[2016-04-09] MEDS: Calcium Acetate 667 MG CAPSULE PO SCH ×3 (09:45→17:16)
[2016-04-09] MEDS: amLODIPine 5 MG TABLET PO SCH (09:46)
--- NOTE | 2016-04-09 11:21 | Electrocardiograph Report ---
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
[2016-04-09] MEDS: Aspirin Enteric Coated 81 MG Tablet PO SCH (11:36)
--- NOTE | 2016-04-09 12:10 | Electrocardiograph Report ---
[facility] Test Date: 2016-04-09 Pat Name: Сергей Pal Department: 112 Room: 2A13 Gender: M Carpentry Professional: : 1945 Requested By: Sharath Hernandez Order Number: [id number] Reading MD: Darren Hung MD Measurements Intervals [place] Rate: 108 P: MT: 0 QRS: 37 QRSD: 102 T: 180 QT: 339 QTc: 403 Interpretive Statements ATRIAL FIBRILLATION WITH RAPID VENTRICULAR RESPONSE NONSPECIFIC ST \T\ T-WAVE ABNORMALITY Electronically Signed On 04-09-16 12:08:56 EST by Darren Hung MD
[2016-04-09 12:27] LABS: Basophils % 0.3 %; Eosinophils # 0.3 K/mcL (0.0-0.6); Eosinophils % 4.7 %; Hematocrit 36.3 % (37.5-50.1); Immature Granulocytes % 0.3 % (0-4); Lymphocytes # 1.2 K/mcL (0.6-4.6); Lymphocytes % 17.8 %; Mean Corpuscular Hemoglobin 29.1 pg (28.0-33.3); Mean Corpuscular Volume 91.2 fL (83.0-100.0); Mean Platelet Volume 10.4 fL (9.4-12.4); Monocytes # 0.4 K/mcL (0.0-1.3); Monocytes % 5.9 %; Neutrophils # 4.8 K/mcL (1.6-8.9); Platelet Count 161 K/mcL (140-400); Red Blood Count 3.98 M/mcL (4.19-5.50); Red Cell Distribution Width 15.4 % (11.5-14.5)
[2016-04-09 12:38] LABS: Hemoglobin 11.6 g/dL (12.9-16.9)
[2016-04-09] MEDS: Acetaminophen 325 MG TABLET PO PRN (13:07)
[2016-04-09] MEDS: Azithromycin 500 MG in D5% in Water 250 ML IVPB SCH (13:51)
--- NOTE | 2016-04-09 14:20 | Cardiology Progress Note ---
Date of Encounter: 04/09/16 Time of Encounter: 14:18 Assessment and Plan (1) Tachycardia-bradycardia Current Visit: Yes Status: Acute Pt was bradycardic on admission--HR reportedly as low as 30s-40s. Home Toprol XL 25mg daily was stopped. Echo preserved EF. Since Toprol was stopped, HR has improved. Reconsulted for episodes of tachycardia. 24 hour tele reviewed--AVG HR 81, lowest HR noted 63, fastest 120s--sinus with PACs. Telemetry reads the rate as 130s because it is reading the PACs. Most of the tachycardic episodes correlate around approximate time of PT--with exertion. Pt is asymptomatic. Per RN, HR has been increasing before next dose of Hydralazine is due, then once given, HR improves. Will resume BB at a lower dose than previous--Toprol XL 12.5mg daily. Cardiology will sign off. Reconsult PRN or if HR will not tolerate this low dose BB. Discussion w patient/family: The assessment and plan as outlined above was discussed with the patient and/or family members who expressed understanding and agreement. All questions were answered. Thank you for involving us in the care of your patient. Please call with any questions. I will discuss all the above with Dr. Whitten and make changes as necessary. Subjective Principal diagnosis: Bradycardia Interval history: Cardiology reconsulted. Dr. Whitten was called by RN, who reported HR as high as 130s on tele. Telemetry reviewed--24 hours AVG HR 81. Lowest HR noted 63. When pt becomes tachycardia, he is sinus rhythm with frequent PACs. Highest actual tachycardic event is rate 120s--around the time he was completing PT. Per RN, has faster HR prior to next scheduled Hydralazine doses, then HR improves. Pt denies any chest pain. Reports improved dyspnea. He denies palpitations, dizziness or lightheadedness. Toprol has been on hold due to bradycardia on presentation--now resolved. Objective Vital Signs, Last 4 Hours Temp Pulse Resp BP Pulse Ox 04/09/16 11:34 97.8 F 86 14 154/76 95 Vital Signs Temp Pulse Resp BP Pulse Ox 04/09/16 11:34 97.8 F 86 14 154/76 95 04/09/16 08:24 16 95 04/09/16 07:13 97.6 F 64 16 162/69 95 04/09/16 01:04 97.3 F L 69 16 165/69 96 04/08/16 20:40 97.4 F L 65 20 155/61 95 04/08/16 17:07 97.5 F L 78 18 143/64 95 Intake and Output 04/08/16 04/09/16 04/09/16 23:59 07:59 15:59 Intake Total 500 / 500 340 / 340 Output Total 2099 1200 / 1200 Balance -1600 / -1600 -1200 / -1200 340 / 340 Intake: IV Fluids 100 / 100 Rocephin 1,000 MG In 100 / 100 Dextrose 5% (Minibag+) 100 ML 100 ML @ 200 mls/ hr IVPB Q24H [facility] Rx#: [id number] Oral 500 / 500 240 / 240 Output: Catheter 2099 1200 / 1200 Other: Meal Dinner Lunch Percent of Meal Consumed 5% 0% Weight 82.69 kg Blood Glucose* 93 100 Patient Weight 04/09/16 23:59 Weight 82.69 kg General: Conversant, No Apparent Distress HEENT: Atraumatic, Normocephaly, Mucus Membranes Moist Neck: No JVD, Normal carotid pulses Cardiac: Reg Rate and Rhythm, Normal S1 and S2, No Murmur Lungs: Normal Breath Sounds, No Wheeze, Rales, Rhonchi Neuro: Alert and responsive, No focal deficits noted Abdomen: Soft, Non-Tender Skin: No rashes noted on visualized skin Musculoskeletal: No Chest Wall Tenderness Extremities: No Clubbing, No Cyanosis, No Edema, Normal Pulses Results 04/09/16 12:09 04/09/16 00:57 Lab Results 04/09/16 04/09/16 04/09/16 00:57 00:57 00:57 WBC Hgb Hct Plt Count Sodium 140 Potassium 4.7 H Chloride 106 Carbon Dioxide 25 BUN 37 H Creatinine 2.33 H Glucose 97 Calcium 8.9 Magnesium 1.9 Troponin I 0.03 TSH 1.336 04/09/16 12:09 WBC 6.8 Hgb 11.6 L D Hct 36.3 L Plt Count 161 Sodium Potassium Chloride Carbon Dioxide BUN Creatinine Glucose Calcium Magnesium Troponin I TSH Short CBC 04/09/16 Range/Units 12:09 WBC 6.8 (4.3-11.1) K/mcL Hgb 11.6 L D (12.9-16.9) g/dL Hct 36.3 L (37.5-50.1) % Plt Count 161 (140-400) K/mcL Neutrophils # 4.8 (1.6-8.9) K/mcL BMP 04/09/16 Range/Units 00:57 Sodium 140 (136-145) mEq/L Potassium 4.7 H (3.5-4.5) mEq/L Chloride 106 (98-109) mEq/L Carbon Dioxide 25 (19-29) mEq/L BUN 37 H (8-26) mg/dL Creatinine 2.33 H (0.72-1.25) mg/dL Glucose 97 (70-99) mg/dL Calcium 8.9 (8.6-10.8) mg/dL Cardiac Enzymes 04/09/16 Range/Units 00:57 Troponin I 0.03 (0-0.03) ng/mL Impressions Chest X-Ray 04/09/16 11:34 IMPRESSION: Stable appearance of the chest over the past 2 days D/ / Jackson Mccord MD / Jackson Mccord MD Interpreting Provider: Jackson Mccord MD Active Medications Acetaminophen (Tylenol) 650 mg PO Q6HR PRN PRN Reason: Mild Pain (1-3) Stop: 10/06/16 23:25 Last Admin: 04/09/16 13:07 Dose: 650 mg Albuterol Sulfate (Albuterol Inhaler) 2 puff IH Q6HR PRN PRN Reason: Shortness Of Breath Stop: 10/07/16 16:45 Amlodipine Besylate (Norvasc) 10 mg PO DAILY [facility] PRN Reason: Protocol Stop: 10/07/16 02:57 Last Admin: 04/09/16 09:46 Dose: 10 mg Aspirin (Aspirin Ec) 81 mg PO DAILY [facility] Stop: 10/07/16 09:01 Last Admin: 04/09/16 11:36 Dose: Not Given Atorvastatin Calcium (Lipitor) 80 mg PO HS [facility] Stop: 10/07/16 21:01 Last Admin: 04/08/16 20:24 Dose: 80 mg Calcium Acetate (Phos-Lo) 667 mg PO TIDWM [facility] Stop: 10/07/16 08:01 Last Admin: 04/09/16 11:43 Dose: 667 mg Clopidogrel Bisulfate (Plavix) 75 mg PO DAILY [facility] Stop: 10/07/16 09:01 Last Admin: 04/09/16 09:45 Dose: 75 mg Furosemide (Lasix) 40 mg IVP BID [facility] Stop: 10/07/16 12:31 Last Admin: 04/09/16 09:44 Dose: 40 mg Heparin Sodium (Porcine) (Heparin) 5,000 unit SQ Q12HR [facility] Stop: 10/08/16 18:01 Last Admin: 04/09/16 06:17 Dose: 5,000 unit Hydralazine HCl (Hydralazine) 10 mg PO Q6HR [facility] Stop: 10/08/16 15:26 Last Admin: 04/09/16 11:43 Dose: 10 mg Azithromycin 500 mg/ Dextrose 250 mls @ 252 mls/hr IVPB Q24H [facility] Stop: 10/07/16 13:01 Last Admin: 04/09/16 13:51 Dose: 252 mls/hr Ceftriaxone Sodium 1,000 mg/ (Dextrose) 100 mls @ 200 mls/hr IVPB Q24H [facility] Stop: 10/07/16 13:01 Last Infusion: 04/09/16 13:52 Dose: Infused Isosorbide Mononitrate (Imdur) 120 mg PO DAILY [facility] Stop: 10/07/16 09:01 Last Admin: 04/09/16 09:45 Dose: 120 mg Ondansetron HCl (Zofran) 4 mg IVP Q6HR PRN PRN Reason: Nausea And Vomiting Stop: 10/06/16 23:25 Ropinirole HCl (Requip) 1 mg PO HS [facility] Stop: 10/07/16 21:01 Last Admin: 04/08/16 20:24 Dose: 1 mg Sertraline HCl (Zoloft) 50 mg PO QAM [facility] Stop: 10/08/16 09:01 Last Admin: 04/09/16 09:45 Dose: 50 mg Tiotropium Russell (Spiriva) 18 mcg IH [facility] PRN Reason: Protocol Stop: 10/08/16 10:01 Last Admin: 04/09/16 08:23 Dose: 18 mcg - Imaging and Cardiology Chest Xray: report reviewed Echo: report reviewed (EF 55%, mild diastolic dysfunction) - EKG Interpretation EKG results cardiology: other (24 hour tele reviewed--AVG HR 81, lowest HR 63, fastest 120s--sinus with PACs.) - VTE Documentation of Mechanical Device: Intermittent pneumatic compression device Consult Discharge Plan - Plan [facility]: [facility] [Primary Care Provider] -
--- NOTE | 2016-04-09 15:58 | Internal Med Progress Note ---
Date of Encounter: 04/09/16 Time of Encounter: 15:53 - Assessment and plan (1) Bradycardia Current Visit: Yes Status: Acute Assessment and plan: suspected, asymptomatic Per family patient has been having [facility] bradycardic into the 30's. BB was held yesterday and at night he was noted to be tachycardic at 130s again. Cards reconsulted he was restarted on low dose BB by cardiology, will continue to monitor the tele. (2) CHF (congestive heart failure) Current Visit: Yes Status: Acute Assessment and plan: Chest x-ray reveals bilateral pleural effusions right greater than left. Trop - x2 Has received two IVP of 40mg Lasix, is currently on 1.5l fluid restriction No LE edema noted. BNP 1267. cardio recommends no further evaluation at this time Chest X-Ray 04/06/16 20:42 IMPRESSION: Bilateral pleural effusions and bilateral lower lobe airspace disease greater on the right. CHF is suspected. D/ / 04/06/2016 21:58:07 Frankie Ryan MD / Jessenia Busby Interpreting Provider: Frankie Ryan MD Qualifiers: Congestive heart failure type: unspecified congestive heart failure type Congestive heart failure chronicity: acute Qualified Code(s): I50.9 - Heart failure, unspecified (3) Pneumonia Current Visit: Yes Status: Acute Assessment and plan: Pt. with dry cough and SOB. CAP possible aspiration pneumonia. CXR: BL pl. effusions. Chest CT: Moderate right and small left pleural effusion with adjacent opacities , right greater than left. Findings are compatible with pulmonary edema with probable superimposed right lower lobe pneumonia. O2 currently sat 94% on RA. legionella and strep antigen negative. will stop the azithromycin. Blood cx prelim shows no growth Resp Panel: Negative continue the rocephin day3. Chest CT 04/07/16 09:20 IMPRESSION: 1. Moderate right and small left pleural effusion with adjacent opacities, right greater than left. Findings are compatible with pulmonary edema with probable superimposed right lower lobe pneumonia. 2. Severe atherosclerosis. 3. Cardiomegaly. 4. Reactive mediastinal lymph nodes. D/ / 04/07/2016 10:55:15 Petty Gill MD / thelma Interpreting Provider: Petty Gill MD Qualifiers: Pneumonia type: due to unspecified organism Laterality: bilateral Lung location: lower lobe of lung Qualified Code(s): J18.9 - Pneumonia, unspecified organism (4) CAD (coronary artery disease) Current Visit: Yes Status: Chronic Assessment and plan: CAD s/p 5 vessel CABG Continue home meds , restarted on low dose of BB ASA, plavix, statin. Qualifiers: Coronary Disease-Associated Artery/Lesion type: [place] artery [place] vs. transplanted heart: [place] heart Associated angina: without angina Qualified Code(s): I25.10 - Atherosclerotic heart disease of [place] coronary artery without angina pectoris (5) CKD (chronic kidney disease) stage 3, GFR 30-59 ml/min Current Visit: Yes Status: Chronic - Time Spent With Patient 25 - 35 minutes - Subjective Interval history: seen at the bedside, denies any compliants. denies any chest pain, palpitation, c/o productive sputum with cough. no fever. was reported by the nurse that he had episodes of tachycardia when his HR went up to 130s, will reconsult cardio for any further interventions. - Constitutional Vitals: Temp Pulse Resp BP Pulse Ox 97.8 F 86 14 154/76 95 04/09/16 11:34 04/09/16 11:34 04/09/16 11:34 04/09/16 11:34 04/09/16 11:34 General appearance: Present: A&O X 2. Absent: answers questions appropriately ( slow to respond. ) Exam: neck- supple chest- b/l clear, no added sounds cvs-s1 and s2, no mr/g abd-soft, non tender, bs are present ext- no edema Internal Medicine: Result - Labs CBC & Chem 7: 04/09/16 12:09 04/09/16 00:57 Labs: Short CBC 04/09/16 Range/Units 12:09 WBC 6.8 (4.3-11.1) K/mcL Hgb 11.6 L D (12.9-16.9) g/dL Hct 36.3 L (37.5-50.1) % Plt Count 161 (140-400) K/mcL Neutrophils # 4.8 (1.6-8.9) K/mcL BMP 04/09/16 00:57 Sodium 140 Potassium 4.7 H Chloride 106 Carbon Dioxide 25 BUN 37 H Creatinine 2.33 H Glucose 97 Calcium 8.9 Cardiac Enzymes 04/09/16 Range/Units 00:57 Troponin I 0.03 (0-0.03) ng/mL - Impressions Impressions Chest X-Ray 04/09/16 11:34 IMPRESSION: Stable appearance of the chest over the past 2 days D/ / Jackson Mccord MD / Jackson Mccord MD Interpreting Provider: Jackson Mccord MD - VTE Documentation of Mechanical Device: Intermittent pneumatic compression device Consult Discharge Plan - Plan [facility]errals: [facility] [Primary Care Provider] -
[2016-04-09] MEDS: Metoprolol XL (24 HR) Succ 25 MG TAB.ER.24H PO SCH (17:15)
[2016-04-09] MEDS ORDERED: *HR* HYDROcodone/Acet 5/325 mg TABLET PO ONE (17:46)
[2016-04-09] MEDS: rOPINIRole 1 MG TABLET PO SCH (20:37)
[2016-04-10] MEDS: hydrALAZINE 10 MG TABLET PO SCH ×4 (00:44→17:25)
[2016-04-10] MEDS: *HR* Heparin 5,000 UNIT/ML VIAL SQ SCH ×2 (06:48→17:25)
[2016-04-10] MEDS: Furosemide 40 MG/4 ML VIAL IVP SCH (09:26)
[2016-04-10] MEDS: Aspirin Enteric Coated 81 MG Tablet PO SCH (09:27)
[2016-04-10] MEDS: Metoprolol XL (24 HR) Succ 25 MG TAB.ER.24H PO SCH (09:27)
[2016-04-10] MEDS: Calcium Acetate 667 MG CAPSULE PO SCH ×3 (09:28→17:25)
[2016-04-10] MEDS: Isosorbide MONOnitrate (24 HR) 60 MG TAB.ER.24H PO SCH (09:30)
[2016-04-10] MEDS: amLODIPine 5 MG TABLET PO SCH (09:31)
[2016-04-10] MEDS: Tiotropium 18 MCG inhalation IH SCH (10:47)
[2016-04-10 11:11] VITALS: BP 130/74
--- NOTE | 2016-04-10 13:02 | Discharge Summary ---
Date of Encounter: 04/10/16 Time of Encounter: 12:44 - Discharge Diagnosis (1) Bradycardia Priority: Primary Status: Acute (2) CHF (congestive heart failure) Priority: Primary Status: Acute Qualifiers: Congestive heart failure type: unspecified congestive heart failure type Congestive heart failure chronicity: acute Qualified Code(s): I50.9 - Heart failure, unspecified (3) Pneumonia Priority: Primary Status: Acute Qualifiers: Pneumonia type: due to unspecified organism Laterality: bilateral Lung location: lower lobe of lung Qualified Code(s): J18.9 - Pneumonia, unspecified organism (4) CAD (coronary artery disease) Priority: Secondary Status: Chronic Qualifiers: Coronary Disease-Associated Artery/Lesion type: [place]ski artery [place] vs. transplanted heart: bel[place]ski heart Associated angina: without angina Qualified Code(s): I25.10 - Atherosclerotic heart disease of [place]ski coronary artery without angina pectoris (5) CKD (chronic kidney disease) stage 3, GFR 30-59 ml/min Priority: Secondary Status: Chronic - Discharge Medications Prescriptions: Amoxicillin/Clavulanate [Augmentin] 500 mg PO BIDWM #8 tablet Metoprolol XL (24 HR) Succ [Toprol Xl] 12.5 mg PO DAILY #30 tab.er.24h Home Medications: Albuterol Sulfate [Albuterol Inhaler] 2 puff IH Q6HR PRN 03/09/15 [History] Calcium Acetate [Phos-LO] 667 mg PO TIDWM 03/09/15 [History] Ranitidine HCl [Zantac] 150 mg PO DAILY 03/09/15 [History] Aspirin 81 mg PO DAILY tab.chew 03/15/15 [Rx] Allopurinol [Zyloprim 100 MG] 200 mg PO DAILY 07/05/15 [History] Amlodipine [Norvasc] 5 mg PO DAILY 07/05/15 [History] Atorvastatin [Lipitor] 80 mg PO HS 07/05/15 [History] Cetirizine HCl [Zyrtec] 10 mg PO DAILY 07/05/15 [History] Clopidogrel [Plavix] 75 mg PO DAILY 07/05/15 [History] Furosemide [Lasix] 40 mg PO QAM 07/05/15 [History] Lactose-Reduced Food [Ensure Liquid] 1 bottle PO DAILY 07/05/15 [History] Loperamide [Imodium] 2 mg PO TID PRN 07/05/15 [History] Nitroglycerin [Nitrostat] 0.4 mg SL AD PRN 07/05/15 [History] Sertraline [Zoloft] 50 mg PO QAM 07/05/15 [History] Carboxymethylcellulos/Glycerin [Refresh Optive Gel Eye Drops] 1 drop OP QID 05/23 [History] Cholecalciferol (D-3) [Vitamin D] 1,000 unit PO DAILY 04/07/16 [History] GuaiFENesin/Dextromethorphan [Child Triaminic Cgh-Congst Syr] 5 ml PO Q6H PRN [History] Lidocaine 4% CRM (LMX) [Lmx 4] 1 appl TP TID 04/07/16 [History] Nitroglycerin [Nitro-Dur] 1 patch TP DAILY 04/07/16 [History] Potassium Chloride [K-Tab ER] 10 meq PO DAILY 04/07/16 [History] Pregabalin [Lyrica] 50 mg PO BID 04/07/16 [History] Ropinirole [Requip] 1 mg PO HS 04/07/16 [History] Tiotropium [Spiriva] 2 puff IH DAILY 04/07/16 [History] Amoxicillin/Clavulanate [Augmentin] 500 mg PO BIDWM #8 tablet 04/10/16 [Rx] Metoprolol XL (24 HR) Succ [Toprol Xl] 12.5 mg PO DAILY #30 tab.er.24h 04/10/16 [Rx] Allergies/Adverse Reactions: Allergies morphine Allergy (Unknown, Verified 03/09/15 21:51) Rash ampicillin [From Unasyn] Allergy (Verified 07/05/15 10:07) Hives nicotine Allergy (Verified 07/05/15 10:06) Rash Nicotine patch sulbactam [From Unasyn] Allergy (Verified 07/05/15 10:07) Hives lactose Adverse Reaction (Verified 03/09/15 19:53) Nausea Procedures/tests Complete & Pending: Procedures Performed prior 72 hours Category Date Time Status ECG 12 lead ECG [ECG] AM 0600 Y 04/09/16 06:00 Completed ECG 12 lead ECG [ECG] Routine Y 04/08/16 12:00 Completed Date of admission: 04/06/16 23:01 [facility] Consults: 04/07/16 01:20 Consult to Cardiology [CONS] Routine Comment: Consulting Provider: Chase Chacon Reason for Consult: CHF; CAD; Bradycardia Call Completed: No 04/07/16 01:33 Consult to Physical Therapy [CONS] Routine Comment: Evaluate, develop and implement POC Consult to Account Manager Trainee [CONS] Routine Reason for SW Consult: DC planning 04/07/16 11:21 Consult to Speech Therapy [CONS] Routine Comment: Evaluate, develop and implement POC Reason for Consult: AMS, possible aspiration pneumonia Call Completed: No 04/07/16 11:34 Consult to Respiratory Therapy [CONS] Stat Reason for Consult: sputum sample needed Call Completed: No 04/07/16 14:05 Consult to Invasive Line Access Team [CONS] Routine Reason for Consult: no iv access Line Type: EPIV 04/09/16 11:34 Consult to Occupational Therapy [CONS] Routine Comment: Evaluate, develop and implement POC 04/09/16 14:16 Consult to Cardiology [CONS] Routine Comment: Consulting Provider: Chase Chacon Reason for Consult: tachy-yara Call Completed: Yes Discharging clinician: Beryl Agnulo Anticipated date of discharge: 04/10/16 - Patient Status Disposition: Home Health Service Condition: Fair Functional capacity at discharge: uses cane/walker Overall status at discharge: patient is back to baseline - Discharge Instructions Instructions: Heart Failure (DC) [facility]: [facility]Primary Care Provider[facility] - (nurse practitioner will see patient at home in a week...) Forms: ED Satisfaction Letter, Work/School Release - Diet and Activity Activity: as per physical therapy Diet: advance to your usual diet Interval History: Mr. Pal is a 70 year old male with a history of coronary artery disease status post 5 vessel CABG in July 2015 at [facility] was brought to the emergency room at [facility] by the family due to variable pulse rate in low oxygen levels. Patient is accompanied by his daughter and granddaughter in the room who have assisted with providing history. History was also obtained by reviewing the records [facility] emergency medical services and [facility]. Patient was found to have a pulse rate between 40-200 by the family at home and his saturations were found to be 85% and hence the patient was taken to the [facility] emergency room. When his vitals were obtained by emergency services, his pulse rate was 53 woman at an desaturation was 91 percent on room air. The family states that the patient had up to 5 apneic episodes associated with heart rate dropping into the 30s while he was in the emergency room at [facility]. Hence, the patient was transferred to [facility]. The daughter reports that the patient's usual dry weight is 174 pounds however, his recent weight is 208 pounds according to the daughter. She reports that he has also been complaining of some shortness of breath and chest pain. The patient himself denies any orthopnea or paroxysmal nocturnal dyspnea. He denies any fever or chills, runny nose, nasal congestion. He denies any nausea , vomiting, abdominal pain, diarrhea or constipation Hospital course: Patient reports some shortness of breath and dry cough. Examination reveals bilateral basal crepitations and reduced breath sounds bilaterally. Chest x-ray -reveals bilateral pleural effusions right greater than left. Sternal wires are seen. chest CT showed moderate right and small left pleural effusion with adjacent opacities right greater than left, findings compatible with pulmonary edema and cardiomegaly with possible superimposed pneumonia. Patient was admitted to the hospital to inpatient status due to acute CHF. he was started in IV lasix. Patient was noted to be bradycardic at the [facility] urgent care with heart rate in the 30s.There's no clear evidence of heart failure. His echo returned with normal LV and RV function. Initially his BB was held in the light of bradycardia. During his hospital stay at night, he was noted to be tachycardic at 130s when his BB was still held. Cardiology recommended restarting on low-dose beta cassandra at 12.5 and no further intervention at this time. He improved clinically, remained hemodynamically stable satting well on room air. He is being discharged in stable condition today on oral antibiotics for the pneumonia. Time spent discussing smoking cessation with patient: more than 10 minutes - Time Spent with Patient Total time spent providing and/or coordinating discharge services: Greater than 30 minutes - Constitutional Vitals: Temp Pulse Resp BP Pulse Ox 97.5 F L 72 16 130/74 94 L 04/10/16 11:08 04/10/16 11:08 04/10/16 11:08 04/10/16 11:08 04/10/16 11:08 General appearance: Present: A&O X 2. Absent: answers questions appropriately ( slow to respond. ) Exam: neck- supple chest- b/l clear, no added sounds cvs-s1 and s2, no mr/g abd-soft, non tender, bs are present ext- no edema - VTE Documentation of Mechanical Device: Intermittent pneumatic compression device
[2016-04-10] MEDS: Azithromycin 500 MG in D5% in Water 250 ML IVPB SCH (13:54)
--- NOTE | 2016-04-10 15:08 | Physician Discharge Referral ---
Home Health/Hosp Referral Info Transfer to: Home Health Attending Provider: mahamed cruz - Diagnosis (1) Bradycardia Status: Acute (2) CHF (congestive heart failure) Status: Acute (3) Pneumonia Status: Acute (4) CAD (coronary artery disease) Status: Chronic (5) CKD (chronic kidney disease) stage 3, GFR 30-59 ml/min Status: Chronic - Respiratory Orders Smoking Cessation: Smoking cessation has been advised. For more information, call the [employer] Tobacco Quit Line at 0-806-YBHZ-NOW. - Diet/Nutrition Diet/Nutrition Orders: Renal - Activity Activity Orders: Ambulate, Chair - Services Needed Following services are medically necessary services: Nursing, Home Health Aide, Physical Therapy, Occupational Therapy - Transfer Medications Prescriptions: Amoxicillin/Clavulanate [Augmentin] 500 mg PO BIDWM #8 tablet Metoprolol XL (24 HR) Succ [Toprol Xl] 12.5 mg PO DAILY #30 tab.er.24h Home Medications: Albuterol Sulfate [Albuterol Inhaler] 2 puff IH Q6HR PRN 03/09/15 [History] Calcium Acetate [Phos-LO] 667 mg PO TIDWM 03/09/15 [History] Ranitidine HCl [Zantac] 150 mg PO DAILY 03/09/15 [History] Aspirin 81 mg PO DAILY tab.chew 03/15/15 [Rx] Allopurinol [Zyloprim 100 MG] 200 mg PO DAILY 07/05/15 [History] Amlodipine [Norvasc] 5 mg PO DAILY 07/05/15 [History] Atorvastatin [Lipitor] 80 mg PO HS 07/05/15 [History] Cetirizine HCl [Zyrtec] 10 mg PO DAILY 07/05/15 [History] Clopidogrel [Plavix] 75 mg PO DAILY 07/05/15 [History] Furosemide [Lasix] 40 mg PO QAM 07/05/15 [History] Lactose-Reduced Food [Ensure Liquid] 1 bottle PO DAILY 07/05/15 [History] Loperamide [Imodium] 2 mg PO TID PRN 07/05/15 [History] Nitroglycerin [Nitrostat] 0.4 mg SL AD PRN 07/05/15 [History] Sertraline [Zoloft] 50 mg PO QAM 07/05/15 [History] Carboxymethylcellulos/Glycerin [Refresh Optive Gel Eye Drops] 1 drop OP QID 05/23 [History] Cholecalciferol (D-3) [Vitamin D] 1,000 unit PO DAILY 04/07/16 [History] GuaiFENesin/Dextromethorphan [Child Triaminic Cgh-Congst Syr] 5 ml PO Q6H PRN [History] Lidocaine 4% CRM (LMX) [Lmx 4] 1 appl TP TID 04/07/16 [History] Nitroglycerin [Nitro-Dur] 1 patch TP DAILY 04/07/16 [History] Potassium Chloride [K-Tab ER] 10 meq PO DAILY 04/07/16 [History] Pregabalin [Lyrica] 50 mg PO BID 04/07/16 [History] Ropinirole [Requip] 1 mg PO HS 04/07/16 [History] Tiotropium [Spiriva] 2 puff IH DAILY 04/07/16 [History] Amoxicillin/Clavulanate [Augmentin] 500 mg PO BIDWM #8 tablet 04/10/16 [Rx] Metoprolol XL (24 HR) Succ [Toprol Xl] 12.5 mg PO DAILY #30 tab.er.24h 04/10/16 [Rx] Allergies/Adverse Reactions: Allergies morphine Allergy (Unknown, Verified 03/09/15 21:51) Rash ampicillin [From Unasyn] Allergy (Verified 07/05/15 10:07) Hives nicotine Allergy (Verified 07/05/15 10:06) Rash Nicotine patch sulbactam [From Unasyn] Allergy (Verified 07/05/15 10:07) Hives lactose Adverse Reaction (Verified 03/09/15 19:53) Nausea Certification: Further, I certify that my clinical findings support that this patient is homebound (i.e. absences from home require considerable and taxing effort and are for medical reasons or anglican services or infrequently or short duration when for other reasons) because: Homebound Reason: Patient requires assistance of a person or device to safely leave home Attestation: My signature below is to certify that this patient is under my care and that I, or nurse practitioner, or a physician's faculty i on call medical assistant working with me, has a face-to -face encounter with this patient.
[2016-04-11] MEDS ORDERED: Furosemide 40 MG TABLET PO SCH (09:00)
== END 2016-04-10 18:18 | disposition home health service (06) | DRG 291 ==
LOC: EMEROO 20:29 → ICNU 23:01 → 2ANU 04-07 00:50
PROVIDERS: ADMIT Internal Medicine Sleep Medicine; ATTEND Internal Medicine

== ENCOUNTER 2016-05-12 15:47 | Inpatient (IN) ==
[2016-05-12] MEDS ORDERED: 0.9 % Sodium Chloride 1,000 ML IVC ONE (17:18)
[2016-05-12 20:02] LABS: Calcium 8.6 mg/dL (8.6-10.8); Potassium 4.1 mEq/L (3.5-4.5)
--- NOTE | 2016-05-12 20:13 | Emergency Department Note ---
Disposition Clinical Impression: Elevated troponin, Acute kidney injury, Weakness Disposition: Admitted As Inpatient Condition: Fair Time of Disposition: 21:29 General Adult HPI - General Chief complaint: ED Dizziness Stated complaint: dizziness, +trop, weakness Source: patient, family, EMS, other (Records from the [place]) Mode of arrival: EMS Limitations: no limitations Nursing Notes Reviewed: Yes Vital Signs Reviewed: Yes - History of Present Illness HPI Narrative: Patient reportedly has been having trouble with weakness for a couple of days. Family members say that he passed out on the bed on Thursday night. They report that the patient had some confusion that lasted most of yesterday but today he seems to be much better. Yesterday he fell in the bathroom. They took him to the [place] urgent care today where a workup was done. He was found have an elevated troponin. Talking with the patient, he denies chest pain or trouble breathing. Pt Subjective Complaint: Weakness and falls Onset (ago): day(s) (Several days) Pain Scale: 0 (She denies pain at this time) Consistency: intermittent (Falls have been intermittent), Improving (According to family the weakness is much better today than it was 2 days ago) Improves with: nothing Worsens with: nothing Associated symptoms: Reports: syncope - Related Data Home Medications Medication Instructions Recorded Confirmed Calcium Acetate [Phos-LO] 667 mg PO TIDWM 03/09/15 05/12/16 Ranitidine HCl [Zantac] 150 mg PO DAILY PRN 03/09/15 05/12/16 Allopurinol [Zyloprim 100 MG] 200 mg PO DAILY 07/05/15 05/12/16 Amlodipine [Norvasc] 5 mg PO DAILY 07/05/15 05/12/16 Atorvastatin [Lipitor] 80 mg PO HS 07/05/15 05/12/16 Cetirizine HCl [Zyrtec] 5 mg PO DAILY PRN 07/05/15 05/12/16 Clopidogrel [Plavix] 75 mg PO DAILY 07/05/15 05/12/16 Furosemide [Lasix] 40 mg PO BID 07/05/15 05/12/16 Loperamide [Imodium] 2 mg PO TID PRN 07/05/15 05/12/16 Nitroglycerin [Nitrostat] 0.4 mg SL Q5M PRN 07/05/15 05/12/16 Sertraline [Zoloft] 50 mg PO QAM 07/05/15 05/12/16 Carboxymethylcellulos/Glycerin 1 drop BOTH EYES QID 04/07/16 05/12/16 [Refresh Optive Gel Eye Drops] Cholecalciferol (D-3) [Vitamin D] 1,000 unit PO BID 04/07/16 05/12/16 Lidocaine 4% CRM (LMX) [Lmx 4] 1 appl TP TID 04/07/16 05/12/16 Nitroglycerin [Nitro-Dur] 1 patch TP DAILY 04/07/16 05/12/16 Potassium Chloride [K-Tab ER] 10 meq PO DAILY 04/07/16 05/12/16 Pregabalin [Lyrica] 50 mg PO BID 04/07/16 05/12/16 Ropinirole [Requip] 1 mg PO HS 04/07/16 05/12/16 Tiotropium [Spiriva] 2 puff IH DAILY 04/07/16 05/12/16 Nut.tx.impaired Digest Fxn [Ensure 1 bottle PO BID 05/12/16 05/12/16 Clear] Previous Rx's Medication Instructions Recorded Aspirin 81 mg PO DAILY tab.chew 03/15/15 Metoprolol XL (24 HR) Succ [Toprol 12.5 mg PO DAILY #30 tab.er.24h 04/10/16 Xl] Allergies Allergy/AdvReac Type Severity Reaction Status Date / Time morphine Allergy Unknown Rash Verified 05/12/16 15:59 ampicillin [From Unasyn] Allergy Hives Verified 05/12/16 15:59 nicotine Allergy Rash Verified 05/12/16 15:59 sulbactam [From Unasyn] Allergy Hives Verified 05/12/16 15:59 lactose AdvReac Nausea Verified 05/12/16 15:59 All systems ED: reviewed and negative except as stated. Constitutional: Reports: weakness (Generalized). Denies: fever, chills ENT ED: Denies: ear pain, throat pain, congestion Cardiovascular: Denies: chest pain, palpitations Respiratory: Denies: cough, dyspnea Gastrointestinal: Denies: abdominal pain, nausea, vomiting Neurological: Denies: headache Past Medical History - Past Medical History Attestation: Yes The following information was validated with the patient. Source: patient, old records reviewed, obtained from family, nursing notes reviewed Medical history: Reports: arthritis, cardiomyopathy, CHF, COPD, coronary artery disease, GERD, hyperlipidemia, hypertension, myocardial infarction, osteoporosis , peripheral artery disease, renal disease, other Surgical history: Reports: angioplasty/stent, carotid endarterectomy, cholecystectomy, coronary bypass (CABG) (5 vessel in 07/2015), LE Bypass, LE vascular intervention, other Psychiatric history: Reports: anxiety, PTSD - Social History Smoking Status: Current every day smoker Smokeless Tobacco Status: No Alcohol use: Reports: none Drug use: Reports: none Physical Exam - General Limitations: no limitations General appearance: alert, in no apparent distress - Head Head exam: atraumatic, normocephalic - Eye Eye exam: Present: normal appearance, PERRL, EOMI - ENT ENT exam: normal exam, normal oropharynx - Neck Neck exam: Present: normal inspection, full ROM. Absent: tenderness - Chest Chest inspection: Present: normal inspection, symmetric chest wall rise. Absent : tenderness - Respiratory Respiratory exam: Present: normal lung sounds bilaterally. Absent: respiratory distress - Cardiovascular Cardiovascular exam: Present: regular rate, normal rhythm, normal heart sounds - Abdominal Exam Abdominal exam: Present: soft, Non-Tender - Extremities Exam Extremities exam: Present: normal inspection, full ROM. Absent: tenderness, pedal edema, joint swelling - Neurological Exam Neurological exam: Present: alert, oriented X3, CN II-XII intact. Absent: motor sensory deficit - Psychiatric Psychiatric exam: Present: normal affect, normal mood - Skin Skin exam: Present: warm, dry. Absent: rash Course Course Narrative: Patient reportedly has had generalized weakness and limited decreased mental status on Thursday and Thursday. Family admits that he is better today than he was those 2 days. Here in the emergency department I cannot really identify any obvious weakness on exam. His motor examination is excellent. He had an elevated troponin at the outside facility. The twelve-lead EKG from the outside facility showed some lateral T-wave abnormalities laterally but when I compare them to old EKGs that we have, these are not new changes. Our initial 12-lead EKG did have some abnormal ST segments in leads V1 and V2 which could be indicative of ischemia. At the time the patient was completely asymptomatic. We repeated twelve-lead EKG and those changes were gone and we do not see indications of acute CT. The patient is not having chest pain or shortness of breath or other cardiac-like symptoms at this time. Family states that he is improved over the last 3 days. I do not identify weakness in this emergency department. I do not think the patient is an acute CT despite the elevated troponins. There may be an and STEMI but with his renal functions so elevated, this elevated troponin may not actually be significant. Overall I did not call a STEMI alert because this had been going on for so long, patient was a symptomatic, and the diagnosis was definitely not clear at the time of presentation. I think the patient needs to be admitted for further cardiac evaluation and tuneup of his underlying medical conditions. I am waiting for repeat lab studies to come back. I am also evaluating the patient for other causes of weakness like electrolyte abnormalities or infections. I will arrange to admit the patient once all the results are back. - Reevaluation(s) Reevaluation #1: Patient remains asymptomatic. Troponin is still elevated. He still has acute kidney injury. I think there is something going on because he did have the EKG changes that had resolved on top of the elevated troponin and a story of weakness at home. He needs a cardiac workup. I spoke with the hospitalist and he has been accepted for admission. Time: 21:29 - Consultations Consultation #1: Dr. Sykes, hospitalist - I discussed the case with the hospitalist. He is accepted the patient for admission to the hospital. No further orders recommended. Time: 21:28 Vital Signs Temperature 98.0 F 05/12/16 15:55 Pulse Rate 73 05/12/16 15:55 Respiratory Rate 14 05/12/16 15:55 Blood Pressure 135/65 05/12/16 15:55 O2 Sat by Pulse Oximetry 100 05/12/16 15:55 Temperature 98.0 F 05/12/16 15:55 Pulse Rate 75 05/12/16 17:28 Respiratory Rate 14 05/12/16 17:28 Blood Pressure 146/99 05/12/16 17:28 O2 Sat by Pulse Oximetry 100 05/12/16 17:28 Oxygen Delivery Oxygen Delivery Nasal Cannula Medical Decision Making - Medical Records Medical records reviewed: Yes I reviewed the patient's medical records. - Lab Data Lab results reviewed: Yes I reviewed the patient's lab results. Result diagrams: 05/12/16 19:41 Lab Results 05/12/16 05/12/1617 Range/Units 19:41 19:41 20:15 Sodium 136 (136-145) mEq/L Potassium 4.1 (3.5-4.5) mEq/L Chloride 112 H (98-109) mEq/L Carbon Dioxide 12 L (19-29) mEq/L BUN 68 H (8-26) mg/dL Creatinine 3.51 H (0.72-1.25) mg/dL Est GFR ( Amer) 21 L (> 60) Est GFR (Non-Af Amer) 17 L (> 60) BUN/Creatinine Ratio 19 (6-26) Glucose 130 H (70-99) mg/dL Calculated Osmolality 304 H (280-300) Calcium 8.6 (8.6-10.8) mg/dL Troponin I 0.06 H* (0-0.03) ng/mL Urine Color Yellow (Yellow) Urine Clarity Clear (Clear) Urine pH 5.5 (5.0-8.0) pH Units Ur Specific [place] 1.011 (1.010-1.025) Urine Protein 100 H (Neg-Trace) mg/dL Urine Glucose (UA) Normal (Normal) mg/dL Urine Ketones Negative (Negative) mg/dL Urine Blood Trace H (Negative) Urine Nitrite Negative (Negative) Urine Bilirubin Negative (Negative) Urine Urobilinogen Normal (Normal) mg/dL Ur Leukocyte Esterase Small H (Negative) Urine Microscopic RBC 5-15 H (0-3) per hpf Urine Microscopic WBC 15-30 H (0-3) per hpf Ur Squamous Epith Cells Moderate H (None-Few) per lpf Urine Bacteria None Seen (None-Few) per hpf Hyaline Casts None Seen (None-Few) per lpf Ur Culture Indicated? YES A (NO) - Radiology Data Radiology results reviewed: Yes I reviewed the patient's radiology results. - EKG Data EKG #1 EKG attestation: Yes I reviewed and interpreted this EKG. EKG shows normal: sinus rhythm, axis, intervals, QRS complexes ST segment elevation in: v1, v2 T wave inversions noted in: v5, v6 Interpretation: nonspecific ST-T wave changes EKG #2 EKG attestation: Yes I reviewed and interpreted this EKG. EKG shows normal: sinus rhythm, axis, intervals, QRS complexes Rate: normal Interpretation: nonspecific ST-T wave changes
[2016-05-12 20:34] LABS: Bilirubin,Urine Negative (Negative); Blood,Urine Trace (Negative); Clarity,Urine Clear (Clear); Color,Urine Yellow (Yellow); Glucose,Urine (UA) Normal (Normal); Ketones,Urine Negative (Negative); Leukocyte Esterase,Urine Small (Negative); Nitrite,Urine Negative (Negative); PH,Urine 5.5 pH Units (5.0-8.0); Protein,Urine 100 mg/dL (Neg-Trace); Specific Gravity,Urine 1.011 (1.010-1.025); Urobilinogen,Urine Normal (Normal)
[2016-05-12 20:37] LABS: Bacteria,Urine None Seen per hpf (None-Few); Hyaline Casts,Urine None Seen per lpf (None-Few); Squamous Epithelial Cell,Urine Moderate per lpf (None-Few); WBC,Urine 15-30 per hpf (0-3)
[2016-05-12] MEDS ORDERED: Naloxone 0.4 MG/ML INJ IVP PRN (23:15)
[2016-05-12] MEDS ORDERED: Ondansetron 4 MG/2 ML VIAL IVP PRN (23:15)
[2016-05-12] MEDS ORDERED: Famotidine 20 MG TABLET PO PRN (23:20)
[2016-05-12] MEDS ORDERED: Nitroglycerin 0.4 MG TAB.SUBL SL PRN (23:20)
[2016-05-12] MEDS ORDERED: Nicotine 7 MG PATCH.TD24 TD PRN (23:56)
--- NOTE | 2016-05-12 23:57 | Internal Med History&Physical ---
<Kristen Blackwell - Last Filed: 05/13/16 01:10> Date of Encounter: 05/13/16 Time of Encounter: 22:00 Assessment and Plan (1) Acute encephalopathy Current visit: Yes Status: Acute Etiology unclear at this time. Likely multifactorial in setting of patient's multiple co morbidities. Stroke work up: CT at [place] showed no acute intracranial hemorrhage or mass effect MRI brain pending Bedside swallow eval. Continue ASA, statin, BB, Plavix. Neurologic status check [id number],Q4H Bilateral Carotid duplex pending Bedside swallow eval with diet if patient permissible. Aspiration precautions. Lipid panel pending Hold echo for now-patient's last echo was in April. (2) Acute kidney injury Current visit: Yes Status: Acute Patient has acute EDDIE on CKD stage 4- GFR measured at 17. Etiology unclear at this time. IVF at 75 ml/hr- infusing 1L total, then lock. Retroperitoneal ultrasound to look for obstruction Bladder scan pending Will check CK with morning labs- patient has extensive history of falls. Hold home lasix. Avoid nephrotoxic agents. Consult to Nephrology for recommendations. (3) CKD (chronic kidney disease) stage 4, GFR 15-29 ml/min Current visit: Yes Status: Acute EDDIE on CKD. Plan as above. (4) UTI (urinary tract infection) Current visit: Yes Status: Acute Urinalysis showed evidence of infection Ceftriaxone 1g Q24 Hours. Urine culture pending. Qualifiers: Urinary tract infection type: site unspecified Hematuria presence: without hematuria Qualified Code(s): N39.0 - Urinary tract infection, site not specified (5) Elevated troponin Current visit: Yes Status: Acute Troponin at the [place] was .08. Repeat troponin at [place] was .06 and trending down. Continue to trend troponins Q6H. EKG reviewed- showed sinus rhythm with septal infarct. Start low dose heparin drip. continue to monitor. Patient is chest pain free at this time. (6) CHF (congestive heart failure) Current visit: No Status: Acute last echo on 04.07.16 showed LVEF 55% with normal LV chamber size and function, mild concentric LV hypertrophy, atypical septal motion consistent with bundle branch block. Mild LV diastolic dysfunction, normal RV structure and function. Qualifiers: Congestive heart failure type: unspecified congestive heart failure type Congestive heart failure chronicity: chronic Qualified Code(s): I50.9 - Heart failure, unspecified (7) CAD (coronary artery disease) Current visit: No Status: Chronic continue ASA, statin, plavix, Qualifiers: Coronary Disease-Associated Artery/Lesion type: unspecified vessel or lesion type [place] vs. transplanted heart: unspecified whether [place] or transplanted heart Associated angina: angina presence unspecified Qualified Code(s): I25.10 - Atherosclerotic heart disease of [place] coronary artery without angina pectoris (8) COPD (chronic obstructive pulmonary disease) Current visit: No Status: Chronic duoneb PRN Continue to monitor. Qualifiers: COPD type: unspecified COPD Qualified Code(s): J44.9 - Chronic obstructive pulmonary disease, unspecified (9) Hyperlipidemia Current visit: No Status: Chronic continue home statin Qualifiers: Hyperlipidemia type: unspecified Qualified Code(s): E78.5 - Hyperlipidemia , unspecified (10) Tobacco abuse Current visit: No Status: Chronic nicotine patch prn. (11) DVT prophylaxis Current visit: No Status: Acute low dose acs heparin drip Internal Medicine - H&P: HPI Chief complaint: altered mental status Admitted From: Hospital to Hospital Transfer Plans for Post Hospital Care: Transfer Other History of present illness: PCP: KATY Mr. Pal is a 70 year old male with PMHx of Dementia, CAD (with hx of bypass graft), Gout, PAD, CKD stage 4, peripheral neuropathy, CAD, HTN, GERD, COPD (not on home oxygen), PTSD, CHF (last echo on 04/07/16 showed LVEF 55%). Patient came as a transfer from the [place] [facility]. Patient is a poor historian due to his dementia. History was obtained from his daughter Efrain, who is also hi POA. On thursday night, patient was home by himself for a couple of hours when his granddaughter came home and and found him laying on his stomach on the bed. Patient was breathing but his pupils were constricted and non reactive to light. Patient could not walk or talk, and was just making noises. He could not get up from a seated position. On Thursday, patient had an episode where he fell in the bathroom. At that time, he was found to have fecal incontinence. His daughter states that all weekend his blood pressure would greatly fluctate from SBP in nineties, and can go high anywhere up to 207. Patient has a significant history of falls. His mental status has been worse than his baseline. Patient has had more trouble communicating than normal recently. Patient had no episodes of facial drooping, but his daughters have noticed episodes of slurred speech that come and go. Patient communicates little at baseline, and was Alert and oriented to person and place. He denies chest pain, but reports shortness of breath. Social Hx: currently lives with daughter and grandaughter. Is a current smoker, smokes less than one PPD. Has smoked about 56 years. Denies illicit drug use, denies alcohol use. Family Hx: dad from pancreatic cancer in his 70s. mother at 90 from Alzheimers and had cancer. Brother of bone cancer in 70s. Surgical Hx: Bilateral carotid surgery in 2001, Bypass graft, cholecystectomy, Past Med Surg Social Fam HX - Past Medical History Medical history: arthritis, cardiomyopathy, CHF, COPD, coronary artery disease, GERD, hyperlipidemia, hypertension, myocardial infarction, osteoporosis, peripheral artery disease, renal disease, other Psychiatric history: anxiety, PTSD - Past Surgical History Surgical History: angioplasty/stent, carotid endarterectomy, cholecystectomy, coronary bypass (CABG) (5 vessel in 07/2015), LE Bypass, LE vascular intervention , other - Social History Smoking Status: Current every day smoker Smokeless Tobacco Status: No Alcohol use: none Drug use: none - Family History Mother Living Status: Hx Family Cardiac Disorders: Yes ([place]) Internal Medicine - H&P: Meds Calcium Acetate [Phos-LO] 667 mg PO TIDWM 03/09/15 [History] Ranitidine HCl [Zantac] 150 mg PO DAILY PRN 03/09/15 [History] Aspirin 81 mg PO DAILY tab.chew 03/15/15 [Rx] Allopurinol [Zyloprim 100 MG] 200 mg PO DAILY 07/05/15 [History] Amlodipine [Norvasc] 5 mg PO DAILY 07/05/15 [History] Atorvastatin [Lipitor] 80 mg PO HS 07/05/15 [History] Cetirizine HCl [Zyrtec] 5 mg PO DAILY PRN 07/05/15 [History] Clopidogrel [Plavix] 75 mg PO DAILY 07/05/15 [History] Furosemide [Lasix] 40 mg PO BID 07/05/15 [History] Loperamide [Imodium] 2 mg PO TID PRN 07/05/15 [History] Nitroglycerin [Nitrostat] 0.4 mg SL Q5M PRN 07/05/15 [History] Sertraline [Zoloft] 50 mg PO QAM 07/05/15 [History] Carboxymethylcellulos/Glycerin [Refresh Optive Gel Eye Drops] 1 drop BOTH EYES QID 04/07/16 [History] Cholecalciferol (D-3) [Vitamin D] 1,000 unit PO BID 04/07/16 [History] Lidocaine 4% CRM (LMX) [Lmx 4] 1 appl TP TID 04/07/16 [History] Nitroglycerin [Nitro-Dur] 1 patch TP DAILY 04/07/16 [History] Potassium Chloride [K-Tab ER] 10 meq PO DAILY 04/07/16 [History] Pregabalin [Lyrica] 50 mg PO BID 04/07/16 [History] Ropinirole [Requip] 1 mg PO HS 04/07/16 [History] Tiotropium [Spiriva] 2 puff IH DAILY 04/07/16 [History] Metoprolol XL (24 HR) Succ [Toprol Xl] 12.5 mg PO DAILY #30 tab.er.24h 04/10/16 [Rx] Nut.tx.impaired Digest Fxn [Ensure Clear] 1 bottle PO BID 05/12/16 [History] Allergies morphine Allergy (Unknown, Verified 05/12/16 15:59) Rash ampicillin [From Unasyn] Allergy (Verified 05/12/16 15:59) Hives nicotine Allergy (Verified 05/12/16 15:59) Rash Nicotine patch sulbactam [From Unasyn] Allergy (Verified 05/12/16 15:59) Hives lactose Adverse Reaction (Verified 05/12/16 15:59) Nausea ROS unobtainable: due to mental status All Systems PM: A 10-system review of systems was performed and is negative for pertinent findings except as documented above in the HPI. - Constitutional Vitals: Temp Pulse Resp BP Pulse Ox 99.1 F 89 16 105/64 100 05/12/16 23:13 05/12/16 23:13 05/12/16 23:13 05/12/16 23:13 05/12/16 23:13 General appearance: Present: A&O X 2, pleasant, no acute distress. Absent: answers questions appropriately - Head Head exam: Present: atraumatic, normocephalic - Eye Eye exam: Present: PERRL Pupils: Present: PERRL - Neck Neck exam general surgery: Present: supple, trachea midline - Respiratory Respiratory exam: Present: decreased breath sounds, rhonchi Additional comments: decreased breath sounds on right, rhonchi present on left side. - Cardiovascular Cardiovascular exam: Present: distant heart sounds - GI/Abdominal GI/Abdominal exam: Present: normal bowel sounds, soft, tenderness (tenderness to deep palpation in middle of abdomen. ) Additional comments: scar present from cholecystectomy. - Extremities Exam Extremities exam: Absent: cyanotic, pedal edema Additional comments: ecchymosis and bruising on upper extremities bilaterally. - Neurological Exam Neurological exam: Present: alert, CN II-XII intact, no focal deficits, speech deficit Additional comments: strength mildly decreased on right upper extremity Internal Med - H&P Results - Labs CBC & Chem 7: 05/12/16 19:41 <Bakari Sykes - Last Filed: 05/13/16 03:13> Date of Encounter: 05/13/16 ROS unobtainable: due to mental status - Constitutional Vitals: Temp Pulse Resp BP Pulse Ox 99.1 F 89 16 105/64 100 05/12/16 23:13 05/12/16 23:13 05/12/16 23:13 05/12/16 23:13 05/12/16 23:13 General appearance: Present: cooperative, A&O X 1, pleasant. Absent: mild distress - Head Head exam: Present: atraumatic, normal inspection - Expanded Head Exam Head exam expanded: Absent: abrasion, contusion, general tenderness - Eye Eye exam: Present: PERRL. Absent: scleral icterus Pupils: Present: normal accommodation - Neck Neck exam general surgery: Present: normal inspection, supple - Expanded Neck Exam Neck exam: Absent: carotid bruit - Respiratory Respiratory exam: Present: rhonchi. Absent: rales, respiratory distress, wheezes - Cardiovascular Cardiovascular exam: Present: distant heart sounds, RRR, +S1, +S2 - GI/Abdominal GI/Abdominal exam: Present: soft. Absent: tenderness - Extremities Exam Extremities exam: Absent: calf tenderness, joint swelling, pedal edema - Back Exam Back exam: Absent: CVA tenderness (L), CVA tenderness (R) Internal Med - H&P Results - Labs CBC & Chem 7: 05/12/16 19:41 - Attending Attestation I discussed the patient DEERING, PMH, ROS, lab data, and exam findings with Dr. Blackwell. I then saw and examined patient independently as well. Pt is confused and disoriented. He is unable to provide history. Family is no longer present. I reviewed his labs, EKG, and discussed treatment plans with Dr. Blackwell. I agree with her plan and recommendations. Other than my comments and subtle exam differences, I agree with Dr. Blackwell' assessment and plan.
[2016-05-13] MEDS ORDERED: Ipratropium/Albuterol Neb 3 ML IH PRN
[2016-05-13] MEDS ORDERED: 0.9 % Sodium Chloride 1,000 ML IVC SCH (00:45)
[2016-05-13] MEDS ORDERED: *HR* Heparin 5,000 UNIT/ML VIAL IVP PRN ×2 (01:03)
[2016-05-13] MEDS ORDERED: *HR* Heparin 5,000 UNIT/ML VIAL IVP ONE (01:03)
[2016-05-13] MEDS ORDERED: Heparin 25,000 UNIT/500 ML D5W 25,000 UNIT/500 ML MLS IVC SCH (01:15)
[2016-05-13 04:29] LABS: Hematocrit 30.8 % (37.5-50.1); Hemoglobin 10.1 g/dL (12.9-16.9); Lymphocytes # 0.2 K/mcL (0.6-4.6); Mean Corpuscular HGB Conc 32.8 g/dL (31.6-35.5); Mean Corpuscular Hemoglobin 30.9 pg (28.0-33.3); Mean Corpuscular Volume 94.2 fL (83.0-100.0); Mean Platelet Volume 11.9 fL (9.4-12.4); Platelet Count 107 K/mcL (140-400); Red Blood Count 3.27 M/mcL (4.19-5.50); Red Cell Distribution Width 16.9 % (11.5-14.5)
[2016-05-13 04:34] LABS: INR 1.2; Prothrombin Time 12.8 Seconds (9.4-12.1)
[2016-05-13 04:54] LABS: Albumin/Globulin Ratio 0.9 (1.1-2.2); Bilirubin,Total 0.5 mg/dL (0.2-1.2); Calcium 8.6 mg/dL (8.6-10.8); Chol/HDL Ratio 5.1 (0-4.9); Globulin 3.2 g/dL (2.4-3.5); Magnesium 1.7 mg/dL (1.6-2.6); Phosphorous 5.6 mg/dL (2.3-4.7); Potassium 4.1 mEq/L (3.5-4.5); Total Protein 6.2 g/dL (6.0-8.3)
[2016-05-13 05:01] LABS: Monocytes # 0.3 K/mcL (0.0-1.3); Neutrophils # 7.1 K/mcL (1.6-8.9); Platelet Estimate Normal (Normal)
[2016-05-13] MEDS ORDERED: *HR* Heparin 5,000 UNIT/ML VIAL SQ SCH (07:00)
--- NOTE | 2016-05-13 08:04 | Nephrology Consult Note ---
Date of Encounter: 05/13/16 Time of Encounter: 08:02 Assessment and Plan (1) Acute kidney injury Current Visit: Yes Status: Acute Patient exhibits a clinical picture of acute kidney injury superimposed on stage IV chronic kidney disease. There is associated normal anion gap metabolic acidosis. Patient presented with hypotension. Etiology of acute kidney injury could be related to hypotension and volume depletion. Post renal obstruction needs to be ruled out. It is unclear as to etiology of the metabolic acidosis other than the acute kidney injury. Patient will require renal ultrasound. IV fluids should be continued. Antihypertensive medications and Lasix should remain on hold. Arterial blood gases will be ordered to better clarify the patient's acid base status. (2) Metabolic acidosis Current Visit: Yes Status: Acute (3) CKD (chronic kidney disease) stage 4, GFR 15-29 ml/min Current Visit: Yes Status: Acute (4) UTI (urinary tract infection) Current Visit: Yes Status: Acute Qualifiers: Urinary tract infection type: site unspecified Hematuria presence: without hematuria Qualified Code(s): N39.0 - Urinary tract infection, site not specified (5) Severe peripheral arterial disease Current Visit: No Status: Acute History of Present Illness - History of Present Illness This is a 70-year-old male transferred to the hospital [place] the [place]. Patient is a poor historian. He is unable to give an accurate history. History is obtained from the medical record. Patient was noted to have worsening creatinine and therefore nephrology was consulted. He does appear to have a history of stage IV chronic kidney disease with a baseline creatinine of 1.8- 2.5. Today his creatinine is up to 3.76. He also has a severe metabolic acidosis with a CO2 level of 11. Medical record indicates that the patient has underlying dementia. Apparently he lives at home with his family. I started night he was found prone in the bed and was unable to talk. Apparently he was only making noises. He also had difficulty moving himself. On Thursday he was noted to have at least one fall. For these reasons he was taken to the [place] for evaluation and then subsequently transferred to a [facility]. Currently the patient will awaken to verbal stimuli. He will attempt to answer questions but his answers are nonsensical. He is not oriented to place or time. He does state that he feels okay. He denies any shortness of breath or chest pain. He does have a Desouza catheter in place. He is making some urine. He is also on maintenance IV fluids. At presentation blood pressure was on the low side. Most recent blood pressures 95/57. Past Med Surg Social Fam HX - Past Medical History Medical history: arthritis, cardiomyopathy, CHF, COPD, coronary artery disease, GERD, hyperlipidemia, hypertension, myocardial infarction, osteoporosis, peripheral artery disease, renal disease, other Psychiatric history: anxiety, PTSD - Past Surgical History Surgical History: angioplasty/stent, carotid endarterectomy, cholecystectomy, coronary bypass (CABG) (5 vessel in 07/2015), LE Bypass, LE vascular intervention , other - Social History Smoking Status: Current every day smoker Smokeless Tobacco Status: No Alcohol use: none Drug use: none - Family History Mother Living Status: Hx Family Cardiac Disorders: Yes ([place]) Medications and Allergies Calcium Acetate [Phos-LO] 667 mg PO TIDWM 03/09/15 [History] Ranitidine HCl [Zantac] 150 mg PO DAILY PRN 03/09/15 [History] Aspirin 81 mg PO DAILY tab.chew 03/15/15 [Rx] Allopurinol [Zyloprim 100 MG] 200 mg PO DAILY 07/05/15 [History] Amlodipine [Norvasc] 5 mg PO DAILY 07/05/15 [History] Atorvastatin [Lipitor] 80 mg PO HS 07/05/15 [History] Cetirizine HCl [Zyrtec] 5 mg PO DAILY PRN 07/05/15 [History] Clopidogrel [Plavix] 75 mg PO DAILY 07/05/15 [History] Furosemide [Lasix] 40 mg PO BID 07/05/15 [History] Loperamide [Imodium] 2 mg PO TID PRN 07/05/15 [History] Nitroglycerin [Nitrostat] 0.4 mg SL Q5M PRN 07/05/15 [History] Sertraline [Zoloft] 50 mg PO QAM 07/05/15 [History] Carboxymethylcellulos/Glycerin [Refresh Optive Gel Eye Drops] 1 drop BOTH EYES QID 04/07/16 [History] Cholecalciferol (D-3) [Vitamin D] 1,000 unit PO BID 04/07/16 [History] Lidocaine 4% CRM (LMX) [Lmx 4] 1 appl TP TID 04/07/16 [History] Nitroglycerin [Nitro-Dur] 1 patch TP DAILY 04/07/16 [History] Potassium Chloride [K-Tab ER] 10 meq PO DAILY 04/07/16 [History] Pregabalin [Lyrica] 50 mg PO BID 04/07/16 [History] Ropinirole [Requip] 1 mg PO HS 04/07/16 [History] Tiotropium [Spiriva] 2 puff IH DAILY 04/07/16 [History] Metoprolol XL (24 HR) Succ [Toprol Xl] 12.5 mg PO DAILY #30 tab.er.24h 04/10/16 [Rx] Nut.tx.impaired Digest Fxn [Ensure Clear] 1 bottle PO BID 05/12/16 [History] Allergies morphine Allergy (Unknown, Verified 05/12/16 15:59) Rash ampicillin [From Unasyn] Allergy (Verified 05/12/16 15:59) Hives nicotine Allergy (Verified 05/12/16 15:59) Rash Nicotine patch sulbactam [From Unasyn] Allergy (Verified 05/12/16 15:59) Hives lactose Adverse Reaction (Verified 05/12/16 15:59) Nausea Review of Systems ROS unobtainable: due to mental status Exam - Vital Signs Vital signs: Initial Vital Signs Temp Pulse Resp BP Pulse Ox 98.0 F 73 14 135/65 100 05/12/16 15:55 05/12/16 15:55 05/12/16 15:55 05/12/16 15:55 05/12/16 15:55 Vital Signs - Last 8 Hours Temp Pulse Resp BP Pulse Ox 05/13/16 06:56 98.7 F 77 16 95/57 05/13/16 06:49 98.7 F 77 16 95/57 100 05/13/16 04:22 98.1 F 80 16 107/63 100 05/13/16 03:26 100 Intake and Output 05/12/16 05/13/16 05/13/16 23:59 07:59 15:59 Intake Total 313.5 / 313.5 Output Total 300 / 300 Balance 13.5 / 13.5 Intake: IV Fluids 73.5 / 73.5 Heparin 25,000 UNIT/500 73.5 / 73.5 ML D5W 25,000 unit In 500 ml @ 11.6 UNIT/KG/HR 19. 952 mls/hr IVC .Q24H [facility] Rx#:[id number] Oral 240 / 240 Output: Catheter 300 / 300 Other: # Voids 1 # Urine Diapers 1 Weight 86 kg - General Appearance Exam: Patient is lying in bed. He is in no acute distress. He is alert. He does respond to verbal stimuli. He is not oriented to time or place. Neck appears supple. Lungs somewhat diminished breath sounds otherwise clear. Heart regular rate and rhythm with a 2/6 systolic ejection murmur. Abdomen shows normal bowel sounds. There is no guarding rigidity or tenderness. Lower extremities show no swelling. Desouza catheter is in place draining norbert colored urine. He is on the maintenance IV at 75 mL per hour. Results - Lab Results 05/13/16 03:45 05/13/16 03:45 Most recent lab results Calcium 8.6 mg/dL (8.6-10.8) 05/13/16 03:45 Phosphorus 5.6 mg/dL (2.3-4.7) H 05/13/16 03:45 Magnesium 1.7 mg/dL (1.6-2.6) 05/13/16 03:45 Consult Discharge Plan - Plan [facility]errals: [facility]Primary Care Provider[facility] -
[2016-05-13] MEDS: Metoprolol XL (24 HR) Succ 25 MG TAB.ER.24H PO SCH (08:34)
[2016-05-13] MEDS: Aspirin 81 MG TAB.CHEW PO SCH (08:45)
[2016-05-13 08:46] LABS: ABG Base Excess -13.1 mEq/L (-2.0 to 3.0); ABG Oxygen Saturation 96 % (95-98); ABG PCO2 25 mmHg (35-45); ABG PH 7.29 pH Units (7.32-7.45); ABG PO2 95 mmHg (85-104); ABG TCO2 12.8 mEq/L (20-26)
[2016-05-13 08:48] LABS: Blood Gas FiO2 28 %
[2016-05-13] MEDS ORDERED: Pregabalin 50 MG CAPSULE PO SCH (09:00)
[2016-05-13] MEDS ORDERED: amLODIPine 5 MG TABLET PO SCH (09:00)
[2016-05-13 09:23] LABS: Activated Partial Thrombo Time > 360.0 Seconds (26.0-36.0); Heparin anti-factor XA UFH 1.56 IU/mL (0.30-0.70)
--- NOTE | 2016-05-13 14:44 | Cardiology Consult Note ---
Date of Encounter: 05/13/16 Time of Encounter: 14:42 Assessment and Plan (1) Elevated troponin Current Visit: Yes Status: Acute - patient admitted for elevated troponin in the absence of chest pain/shortness of breath - initial troponin at [facility] 0.06, troponins trended here 0.06 --> 0.13 --> 0.14 in the setting of EDDIE on CKD 4 - known CAD with 5V bypass in 2015 - continues to smoke 1 ppd - initial EKG reviewed showed ST-T changes in septal leads that normalized on repeat EKG, ST segments are concave in setting of conduction delay, likely not infarction - last ECHO 04/07/16 revealing EF 55% with mild LVG and atypical septal motion suggesting BBB - continue medical management, ASA, statin, BB, imdur - brain MRI negative for acute infarct or hemorrhage, ok to continue low dose heparin for 48 hours, continue to trend troponin (2) CKD (chronic kidney disease) stage 4, GFR 15-29 ml/min Current Visit: Yes Status: Acute - EDDIE on CKD - nephrology consulted (3) Tobacco abuse Current Visit: No Status: Chronic - 1 ppd - smoking cessation recommendation, patient does not appear interested in quitting - nicotine patch prn ordered Discussion w patient/family: The assessment and plan as outlined above was discussed with the patient and/or family members who expressed understanding and agreement. All questions were answered. Thank you for involving us in the care of your patient. Please call with any questions. History of Present Illness Consult date: 05/13/16 Requesting physician: Beryl Angulo Consult reason: elevated troponin Chief complaint: AMS History of present illness: Mr. Pal is a 70 year old male with significant cardiac disease, CABG 5V 2015, PAD, dementia, COPD, and 1 ppd smoker presents to the ED initially for weakness and admitted for AMS and elevated troponin. Cardiology consulted for elevated troponin and concern of cardiogenic syncope. Patient initially presented to the [facility] for evaluation and troponin was elevated at 0.06 in setting of EDDIE. Patient is a poor historian and history obtained by daughter in the room and review of medical chart. Reportedly over the past several days and weeks he has been falling more often, possible syncope. He was found by family member to be laying on the bed unresponsive and acting funny. He was speaking incomprehensible words which worried the family. Patient also was found on the ground in the bathroom but unwitnessed. He currently denies any chest pain, palpitations or lightheadedness. He was recently admitted for pneumonia and continues to have dyspnea. Syncope/CVA workup initiated. MRI negative for acute infarct. EKG performed in the ED revealed new ST elevations in septal leads that appeared to normalize on repeat EKG. Continues to deny any chest pain/pressure/discomfort, palpitations, or lightheadedness. Important CV studies: - CABG 5V reportedly performed at [facility] - ECHO 04/07/16 - EF 55% with mild LVH, atypical septal motion suggesting BBB, mild diastolic dysfunction, mild MR, mild AR, pulm HTN RVSP 36 mmHg - arterial study 09/26/2104 - R EMY 0.75, L EMY 0.61, patent R fem-tib bypass - [facility] 10/25/2012 - severe stenosis of mid circumflex, MELVI placed - moderate diffuse 3 vessel disease Past Med Surg Social Fam HX - Past Medical History Medical history: arthritis, cardiomyopathy, CHF, COPD, coronary artery disease, GERD, hyperlipidemia, hypertension, myocardial infarction, osteoporosis, peripheral artery disease, renal disease, other Psychiatric history: anxiety, PTSD - Past Surgical History Surgical History: angioplasty/stent, carotid endarterectomy, cholecystectomy, coronary bypass (CABG) (5 vessel in 07/2015), LE Bypass, LE vascular intervention , other - Social History Smoking Status: Current every day smoker Smokeless Tobacco Status: No Alcohol use: none Drug use: none - Family History Mother Living Status: Hx Family Cardiac Disorders: Yes ([place]) Medications and Allergies Calcium Acetate [Phos-LO] 667 mg PO TIDWM 03/09/15 [History] Ranitidine HCl [Zantac] 150 mg PO DAILY PRN 03/09/15 [History] Aspirin 81 mg PO DAILY tab.chew 03/15/15 [Rx] Allopurinol [Zyloprim 100 MG] 200 mg PO DAILY 07/05/15 [History] Amlodipine [Norvasc] 5 mg PO DAILY 07/05/15 [History] Atorvastatin [Lipitor] 80 mg PO HS 07/05/15 [History] Cetirizine HCl [Zyrtec] 5 mg PO DAILY PRN 07/05/15 [History] Clopidogrel [Plavix] 75 mg PO DAILY 07/05/15 [History] Furosemide [Lasix] 40 mg PO BID 07/05/15 [History] Loperamide [Imodium] 2 mg PO TID PRN 07/05/15 [History] Nitroglycerin [Nitrostat] 0.4 mg SL Q5M PRN 07/05/15 [History] Sertraline [Zoloft] 50 mg PO QAM 07/05/15 [History] Carboxymethylcellulos/Glycerin [Refresh Optive Gel Eye Drops] 1 drop BOTH EYES QID 04/07/16 [History] Cholecalciferol (D-3) [Vitamin D] 1,000 unit PO BID 04/07/16 [History] Lidocaine 4% CRM (LMX) [Lmx 4] 1 appl TP TID 04/07/16 [History] Nitroglycerin [Nitro-Dur] 1 patch TP DAILY 04/07/16 [History] Potassium Chloride [K-Tab ER] 10 meq PO DAILY 04/07/16 [History] Pregabalin [Lyrica] 50 mg PO BID 04/07/16 [History] Ropinirole [Requip] 1 mg PO HS 04/07/16 [History] Tiotropium [Spiriva] 2 puff IH DAILY 04/07/16 [History] Metoprolol XL (24 HR) Succ [Toprol Xl] 12.5 mg PO DAILY #30 tab.er.24h 04/10/16 [Rx] Nut.tx.impaired Digest Fxn [Ensure Clear] 1 bottle PO BID 05/12/16 [History] Allergies morphine Allergy (Unknown, Verified 05/12/16 15:59) Rash ampicillin [From Unasyn] Allergy (Verified 05/12/16 15:59) Hives nicotine Allergy (Verified 05/12/16 15:59) Rash Nicotine patch sulbactam [From Unasyn] Allergy (Verified 05/12/16 15:59) Hives lactose Adverse Reaction (Verified 05/12/16 15:59) Nausea All Systems Review: A 10-system review of systems was performed and is negative for pertinent findings except as documented above in the HPI. Review of Systems: ROS obtained by daughter - Constitutional Constitutional: frequent falls, weakness, no fever(s) - Cardiovascular Cardiovascular: as per HPI, dyspnea at rest, dyspnea on exertion, no chest pain at rest, no chest pain with exertion - Respiratory Respiratory: dyspnea, no cough Physical Examination General: No Apparent Distress, Other (poor historian, solmnolent/tired) HEENT: Atraumatic, Normocephaly, Other (mucous membranes dry) Neck: No JVD, Normal carotid pulses Cardiac: Reg Rate and Rhythm, Normal S1 and S2, No Murmur Lungs: Normal Breath Sounds, No Wheeze, Rales, Rhonchi Neuro: Alert and responsive, No focal deficits noted Abdomen: Soft, Non-Tender Skin: No rashes noted on visualized skin Musculoskeletal: No Chest Wall Tenderness Extremities: No Clubbing, No Cyanosis, No Edema, Other Results 05/13/16 03:45 05/13/16 03:45 Lab Results 05/13/16 05/13/16 05/13/16 03:45 03:45 03:45 WBC 7.5 Hgb 10.1 L Hct 30.8 L Plt Count 107 L INR APTT Sodium 137 Potassium 4.1 Chloride 112 H Carbon Dioxide 11 L BUN 71 H Creatinine 3.76 H Glucose 119 H Calcium 8.6 Magnesium 1.7 Total Bilirubin 0.5 AST 39 H ALT 22 Alkaline Phosphatase 105 Troponin I 0.13 H* 05/13/16 05/13/16 05/13/16 03:45 08:05 08:05 WBC Hgb Hct Plt Count INR 1.2 APTT > 360.0 H* Sodium Potassium Chloride Carbon Dioxide BUN Creatinine Glucose Calcium Magnesium Total Bilirubin AST ALT Alkaline Phosphatase Troponin I 0.14 H* 05/13/16 13:38 WBC Hgb Hct Plt Count INR APTT 35.1 D Sodium Potassium Chloride Carbon Dioxide BUN Creatinine Glucose Calcium Magnesium Total Bilirubin AST ALT Alkaline Phosphatase Troponin I - Imaging and Cardiology Chest Xray: report reviewed Stress Test: report reviewed Echo: report reviewed Cardiac cath: report reviewed - EKG Interpretation EKG results cardiology: personally reviewed (ST-T changes in septal leads but appear benign likely not ischemic, likely conduction) Consult Discharge Plan - Plan [facility]errals: [facility] [Primary Care Provider] -
--- NOTE | 2016-05-13 16:40 | Internal Med Progress Note ---
Date of Encounter: 05/13/16 Time of Encounter: 16:38 - Assessment and plan (1) Acute encephalopathy Current Visit: Yes Status: Acute Assessment and plan: currently at baseline he has baseline dementia and has episodes on and off when he gets very confused. was admitted for possible CVA, however brain MRI is negtaive for any infarct or hemorrhage. he does have NAGMA possible from worsening CKD, renal has been consulted, other than that no other metabolic etiology identified. Continue ASA, statin, BB, Plavix. Neurologic status check qshift. Bilateral Carotid duplex pending Aspiration precautions. (2) Acute kidney injury Current Visit: Yes Status: Acute Assessment and plan: will cotninue to monitor. follow renal recommnedations. family reports h/o wide fluctuations in his BP and hr. will observe that here and may need meds adjustment. unclear if this is 2/2 hypotension and low renal blood flow. renal US shows no evidence of obstruction. (3) CKD (chronic kidney disease) stage 4, GFR 15-29 ml/min Current Visit: Yes Status: Acute (4) Elevated troponin Current Visit: Yes Status: Acute Assessment and plan: may be 2/2 demand ischemia from hypotension. denies any chest pain now. he does have significant cardiac history with CABG and stent placement heparin drip has been stopped. will coninue ASA, statin, BB, imdur as per cardio Elevated troponin not likely from ACS. Has EDDIE and mental status changes/ dementia. Best candidate for medical mgmt. only. (5) Metabolic acidosis Current Visit: Yes Status: Acute Assessment and plan: will add sodium bicarb oral for NAGMA possible 2/2 CKD. (6) CHF (congestive heart failure) Current Visit: No Status: Acute Assessment and plan: ECHO 04/07/16 - EF 55% with mild LVH, atypical septal motion suggesting BBB, mild diastolic dysfunction, mild MR, mild AR, pulm HTN RVSP 36 mmHg. currently appears to be euvolemic on exam., Qualifiers: Congestive heart failure type: unspecified congestive heart failure type Congestive heart failure chronicity: chronic Qualified Code(s): I50.9 - Heart failure, unspecified (7) COPD (chronic obstructive pulmonary disease) with acute bronchitis Current Visit: No Status: Acute Assessment and plan: stable. (8) CAD (coronary artery disease) Current Visit: No Status: Chronic Qualifiers: Coronary Disease-Associated Artery/Lesion type: unspecified vessel or lesion type [place] vs. transplanted heart: unspecified whether [place] or transplanted heart Associated angina: angina presence unspecified Qualified Code(s): I25.10 - Atherosclerotic heart disease of [place] coronary artery without angina pectoris (9) UTI (urinary tract infection) Current Visit: Yes Status: Acute Assessment and plan: ua showed mild UTI. urine cx has been sent will follow urine cx and continue ceftiaxone for now. he is not a reliable historain giiven his baseline dementia. Qualifiers: Urinary tract infection type: site unspecified Hematuria presence: without hematuria Qualified Code(s): N39.0 - Urinary tract infection, site not specified - Subjective Interval history: patient seen at the bedside with the daughter. seems to be at His baseline now, and denies any chest pain or shortness of breath or dizziness. He has waxing and waning mental status ,the daughter reported that he was really confused last night. - Constitutional Vitals: Temp Pulse Resp BP Pulse Ox 98.7 F 77 16 95/57 100 05/13/16 06:56 05/13/16 06:56 05/13/16 06:56 05/13/16 06:56 05/13/16 06:49 General appearance: Present: cooperative, A&O X 1, pleasant. Absent: mild distress Exam: General appearance: Present: A&O X 2, pleasant, no acute distress. Absent: answers questions appropriately - Head Head exam: Present: atraumatic, normocephalic - Eye Eye exam: Present: PERRL Pupils: Present: PERRL - Neck Neck exam general surgery: Present: supple, trachea midline - Respiratory Respiratory exam: Present: b/l clear breath sounds - Cardiovascular Cardiovascular exam: Present: distant heart sounds - GI/Abdominal GI/Abdominal exam: Present: normal bowel sounds, soft, tenderness (tenderness to deep palpation in middle of abdomen. ) Additional comments: scar present from cholecystectomy. - Extremities Exam Extremities exam: Absent: cyanotic, pedal edema Additional comments: ecchymosis and bruising on upper extremities bilaterally. - Neurological Exam Neurological exam: Present: alert, CN II-XII intact, no focal deficits, speech deficit Internal Medicine: Result - Labs CBC & Chem 7: 05/13/16 03:45 05/13/16 03:45 Labs: Short CBC 05/13/16 Range/Units 03:45 WBC 7.5 (4.3-11.1) K/mcL Hgb 10.1 L (12.9-16.9) g/dL Hct 30.8 L (37.5-50.1) % Plt Count 107 L (140-400) K/mcL Neutrophils # 7.1 (1.6-8.9) K/mcL BMP 05/13/16 03:45 Sodium 137 Potassium 4.1 Chloride 112 H Carbon Dioxide 11 L BUN 71 H Creatinine 3.76 H Glucose 119 H Calcium 8.6 Cardiac Enzymes 05/13/16 05/13/16 Range/Units 03:45 08:05 Troponin I 0.13 H* 0.14 H* (0-0.03) ng/mL Liver Function 05/13/16 Range/Units 03:45 Total Bilirubin 0.5 (0.2-1.2) mg/dL AST 39 H (5-34) Units/L ALT 22 (0-55) Units/L Alkaline Phosphatase 105 (38-126) Units/L Albumin 3.0 L (3.5-5.0) g/dL - ABG Interpretation ABG results: ABG ABG pH 7.29 pH Units (7.32-7.45) L 05/13/16 08:40 ABG pCO2 25 mmHg (35-45) L 05/13/16 08:40 ABG pO2 95 mmHg (85-104) 05/13/16 08:40 ABG O2 Saturation 96 % (95-98) 05/13/16 08:40 PT/INR, D-dimer PT 12.8 Seconds (9.4-12.1) H 05/13/16 03:45 - Impressions Impressions Brain MRI 05/13/16 00:39 IMPRESSION: Cerebral atrophy. Chronic small vessel ischemic changes. No acute intracranial abnormality. Mild mucoperiosteal thickening of the ethmoid air cells and frontal sinuses. Mild opacification of the left mastoid air cells. D/ / 05/13/2016 11:14:34 Abena Brewster MD / duncan Interpreting Provider: Abena Brewster MD Retroperitoneum Ultrasound 05/13/16 14:30 IMPRESSION: Asymmetric atrophy and cortical thinning of the right kidney. No evidence of hydronephrosis. Subcentimeter left renal cyst. Incidental splenomegaly. D/ / Ida Morillo MD / Ida Morillo MD Interpreting Provider: Ida Morillo MD Consult Discharge Plan - Plan [facility]errals: [facility] [Primary Care Provider] -
[2016-05-13] MEDS: Calcium Acetate 667 MG CAPSULE PO SCH (17:56)
--- NOTE | 2016-05-13 20:46 | Carotid Imaging Report ---
Carotid Duplex Patient Name:Сергей Pal Order Number:[id number] Procedure Date:05/13/2016 Date:5Age:70 yrs Gender:Male Lt BP:131 / 48 mmHg Rt.BP:135 / 54 mmHgHeart Rate: Location:[facility] Room #: 2A42 Paper Carrier:Diego Wilburn RN Referring MD:Kristen Blackwell DO dictating transcribing machine servicer:[facility] Gerardo MD:Anderson Esquivel MD , FACS Primary Indications:Stroke Workup Risk Factors Yes/No Hypertension Yes Hypercholesterolemia Yes Smoking Current Yes Hx of TIA No Hx of CVA No Hx of CAD/PTCA Yes Anticoagulants Yes Impressions: Findings: Right proximal ICA has a moderate, 40-59% stenosis. Findings: Left proximal ICA has a severe, 60-79% stenosis. Recommendations: Test completed on 05/13/2016 at 1:05:00 pm. Findings Carotid Duplex: Right: The right proximal common carotid artery has a PSV of 105 cm/s and a EDV of 13 cm/s. There is nonstenotic plaque in the right mid common carotid artery with a PSV of 100 cm/s and a EDV of 15 cm/s. There is smooth heterogeneous plaque. There is nonstenotic plaque in the right distal common carotid artery with a PSV of 154 cm/s and a EDV of 18 cm/s. There is smooth heterogeneous plaque. There is 40-59% stenosis in the right bifurcation with a PSV of 251 cm/s and a EDV of 23 cm/s. There is smooth heterogeneous plaque. There is 40-59% stenosis in the right proximal internal carotid artery with a PSV of 233 cm/s and a EDV of 24 cm/s. There is smooth heterogeneous plaque. The right mid internal carotid artery has a PSV of 156 cm/s and a EDV of 18 cm/s. There is 40-59% stenosis in the right distal internal carotid artery with a PSV of 119 cm/s and a EDV of 24 cm/s. The right eca has a PSV of 265 cm/s and a EDV of 7 cm/s. The right vertebral artery has a PSV of 47 cm/s. Left: The left proximal common carotid artery has a PSV of 128 cm/s and a EDV of 14 cm/s. There is nonstenotic plaque in the left mid common carotid artery with a PSV of 76 cm/s and a EDV of 15 cm/s. There is smooth heterogeneous plaque. There is nonstenotic plaque in the left distal common carotid artery with a PSV of 96 cm/s and a EDV of 20 cm/s. There is smooth heterogeneous plaque. There is 40-59% stenosis in the left bifurcation with a PSV of 159 cm/s and a EDV of 26 cm/s. There is smooth heterogeneous plaque. There is 60-79% stenosis in the left proximal internal carotid artery with a PSV of 207 cm/s and a EDV of 40 cm/s. There is smooth heterogeneous plaque. The left mid internal carotid artery has a PSV of 102 cm/s and a EDV of 20 cm/s. The left distal internal carotid artery has a PSV of 89 cm/s and a EDV of 24 cm/s. The left eca has a PSV of 253 cm/s and a EDV of 14 cm/s. The left vertebral artery has a PSV of 99 cm/s and a EDV of 18 cm/s. Prior Study: No significant change compared to prior study dated: 01/11/2016. Carotid Results Right PSV EDV Assessment Proximal CCA 105 13 Normal Mid CCA 100 15 Non Stenotic Plaque Distal CCA 154 18 Non Stenotic Plaque Bifurcation 251 23 40-59% stenosis Proximal ICA 233 24 40-59% stenosis Mid ICA 156 18 40-59% stenosis Distal ICA 119 24 40-59% stenosis ECA 265 7 Normal Vertebral Artery 47 0 Atypical flow Left PSV EDV Assessment Proximal CCA 128 14 Normal Mid CCA 76 15 Non Stenotic Plaque Distal CCA 96 20 Non Stenotic Plaque Bifurcation 159 26 40-59% stenosis Proximal ICA 207 40 60-79% stenosis Mid ICA 102 20 Normal Distal ICA 89 24 Normal ECA 253 14 Normal Vertebral Artery 99 18 Normal Ratio's Right ICA/CCA Ratio: 2.33 ICA/CCA Values: 233/100 Left ICA/CCA Ratio: 2.72 ICA/CCA Values: 207/76 Updated by Anderson Esquivel MD, FACS on 05/13/2016 8:39:04 PM Anderson Esquivel MD electronically signed on 05/13/2016 8:39:54 PM with status of Final
[2016-05-13] MEDS: Acetaminophen 325 MG TABLET PO PRN (21:38)
[2016-05-13] MEDS: rOPINIRole 1 MG TABLET PO SCH (21:38)
[2016-05-14 05:23] LABS: Hematocrit 28.5 % (37.5-50.1); Hemoglobin 9.1 g/dL (12.9-16.9); Mean Corpuscular HGB Conc 31.9 g/dL (31.6-35.5); Mean Corpuscular Hemoglobin 30.3 pg (28.0-33.3); Mean Platelet Volume 10.8 fL (9.4-12.4); Platelet Count 101 K/mcL (140-400); Red Cell Distribution Width 17.2 % (11.5-14.5)
[2016-05-14 05:39] LABS: Albumin 2.7 g/dL (3.5-5.0); Albumin/Globulin Ratio 0.9 (1.1-2.2); Bilirubin,Total 0.4 mg/dL (0.2-1.2); Calcium 8.7 mg/dL (8.6-10.8); Globulin 3.1 g/dL (2.4-3.5); Potassium 4.3 mEq/L (3.5-4.5); Total Protein 5.8 g/dL (6.0-8.3)
[2016-05-14 06:41] LABS: Eosinophils # 0.2 K/mcL (0.0-0.6); Hypochromasia Present (Not Present); Lymphocytes # 0.4 K/mcL (0.6-4.6); Macrocytosis Present (Not Present); Monocytes # 0.5 K/mcL (0.0-1.3); Ovalocytes 1+ (Not Present); Platelet Estimate Decreased (Normal); Polychromasia 1+ (Not Present)
--- NOTE | 2016-05-14 08:12 | Nephrology Progress Note ---
Date of Encounter: 05/14/16 Time of Encounter: 08:11 - Assessment and Plan (1) Acute kidney injury Current Visit: Yes Status: Acute Patient has acute kidney injury. Creatinine appears to have plateaued. Renal ultrasound shows no hydronephrosis. He does have evidence of right renal atrophy. He also has a non-anion gap metabolic acidosis. We will resume IV fluids with bicarbonate replacement. We will continue to monitor his renal function. (2) Metabolic acidosis Current Visit: Yes Status: Acute (3) CKD (chronic kidney disease) stage 4, GFR 15-29 ml/min Current Visit: Yes Status: Acute (4) UTI (urinary tract infection) Current Visit: Yes Status: Acute Qualifiers: Urinary tract infection type: site unspecified Hematuria presence: without hematuria Qualified Code(s): N39.0 - Urinary tract infection, site not specified (5) Severe peripheral arterial disease Current Visit: No Status: Acute Subjective Interval history: Patient is more alert today. Blood pressure is 120/68. Urine output is recorded as 750 mL. Renal function seems to have plateaued. ABGs confirm a metabolic acidosis with some respiratory compensation. Objective - Vital Signs Vital signs: Vital Signs Temp Pulse Resp BP Pulse Ox 05/14/16 06:49 97.5 F L 79 16 120/68 100 05/14/16 03:34 97.8 F 69 16 109/63 100 05/13/16 23:14 97.5 F L 66 16 101/64 99 05/13/16 19:19 97.4 F L 70 12 121/62 98 05/13/16 16:00 97.4 F L 66 18 96/60 99 05/13/16 12:00 98.7 F 77 16 95/57 100 Intake and Output 05/13/16 05/14/16 05/14/16 23:59 07:59 15:59 Intake Total 0 / 0 Output Total 450 / 450 0 / 0 Balance -450 / -450 0 / 0 Intake: Oral 0 / 0 Output: Urine 0 / 0 Catheter 450 / 450 Other: Weight 86.4 kg Patient Weight 05/14/16 23:59 Weight 86.4 kg - General Appearance Exam: Patient is more alert. He is in no acute distress. Lungs breath sounds. Heart regular rate and rhythm. Abdomen is benign. There is no peripheral edema. - Lab 05/14/16 04:42 05/14/16 04:42 Most recent lab results ABG pH 7.29 pH Units (7.32-7.45) L 05/13/16 08:40 ABG pCO2 25 mmHg (35-45) L 05/13/16 08:40 ABG pO2 95 mmHg (85-104) 05/13/16 08:40 ABG HCO3 12.0 mEQ/L (21-27) L 05/13/16 08:40 ABG O2 Saturation 96 % (95-98) 05/13/16 08:40 Calcium 8.7 mg/dL (8.6-10.8) 05/14/16 04:42 Phosphorus 6.1 mg/dL (2.3-4.7) H 05/13/16 08:10 Magnesium 1.7 mg/dL (1.6-2.6) 05/13/16 03:45 Consult Discharge Plan - Plan [facility]errals: [facility] [Primary Care Provider] -
[2016-05-14] MEDS ORDERED: Sodium Bicarbonate 150 MEQ in D5% in Water 1,000 ML IVC SCH (08:15)
[2016-05-14] MEDS: Metoprolol XL (24 HR) Succ 25 MG TAB.ER.24H PO SCH (08:32)
[2016-05-14] MEDS: Calcium Acetate 667 MG CAPSULE PO SCH ×3 (08:32→17:07)
[2016-05-14] MEDS: Aspirin 81 MG TAB.CHEW PO SCH (08:33)
--- NOTE | 2016-05-14 09:25 | Cardiology Progress Note ---
Date of Encounter: 05/14/16 Time of Encounter: 09:22 Assessment and Plan (1) Elevated troponin Current Visit: Yes Status: Acute - patient admitted for elevated troponin in the absence of chest pain/shortness of breath, likely not ACS - initial troponin at [facility] 0.06, troponins trended here 0.06 --> 0.13 --> 0.14 in the setting of EDDIE on CKD 4 - known CAD with 5V bypass in 2016 - continues to smoke 1 ppd - stop heparin - will continue with medical management, ASA, statin, BB, imdur - patient and family in agreement with plan - will follow up in cardiac clinic with Dr. Hung in 2-3 weeks Cardiology will sign off at this time. Thank you for involving us in his care. Please call with further questions. (2) CKD (chronic kidney disease) stage 4, GFR 15-29 ml/min Current Visit: Yes Status: Acute - EDDIE on CKD - nephrology consulted (3) Tobacco abuse Current Visit: No Status: Chronic - 1 ppd - smoking cessation recommended, patient does not appear interested in quitting - nicotine patch prn ordered Discussion w patient/family: The assessment and plan as outlined above was discussed with the patient and/or family members who expressed understanding and agreement. All questions were answered. Thank you for involving us in the care of your patient. Please call with any questions. Subjective Principal diagnosis: EDDIE Interval history: Patient seen and examined at bedside. No complaints at this time. Currently working with PT/OT. More alert and interactive today. Denies any chest pain, shortness of breath, abdominal pain, lightheadedness, or palpitations. Objective Vital Signs, Last 4 Hours Temp Pulse Resp BP Pulse Ox 05/14/16 08:41 100 05/14/16 06:49 97.5 F L 79 16 120/68 100 General: Conversant, No Apparent Distress HEENT: Atraumatic, Normocephaly, Mucus Membranes Moist Neck: No JVD, Normal carotid pulses Cardiac: Reg Rate and Rhythm, Normal S1 and S2, No Murmur Lungs: Normal Breath Sounds, No Wheeze, Rales, Rhonchi Neuro: Alert and responsive, No focal deficits noted Abdomen: Soft, Non-Tender Skin: No rashes noted on visualized skin Musculoskeletal: No Chest Wall Tenderness Extremities: No Clubbing, No Cyanosis, No Edema, Normal Pulses Results 05/14/16 04:42 02/08/17 04:42 Lab Results 05/13/16 05/13/16 05/14/16 08:05 13:38 04:42 WBC Hgb Hct Plt Count APTT > 360.0 H* 35.1 D Sodium 138 Potassium 4.3 Chloride 114 H Carbon Dioxide 12 L BUN 81 H Creatinine 3.72 H Glucose 92 Calcium 8.7 Total Bilirubin 0.4 AST 27 ALT 17 Alkaline Phosphatase 95 05/14/16 04:42 WBC 4.1 L Hgb 9.1 L Hct 28.5 L Plt Count 101 L APTT Sodium Potassium Chloride Carbon Dioxide BUN Creatinine Glucose Calcium Total Bilirubin AST ALT Alkaline Phosphatase Consult Discharge Plan - Plan [facility]errals: [facility] [Primary Care Provider] -
[2016-05-14] MEDS: Isosorbide MONOnitrate (24 HR) 30 MG TAB.ER.24H PO SCH (12:41)
--- NOTE | 2016-05-14 15:40 | Internal Med Progress Note ---
Date of Encounter: 05/14/16 Time of Encounter: 15:38 - Assessment and plan (1) Acute encephalopathy Current Visit: Yes Status: Acute Assessment and plan: currently at baseline he has baseline dementia and has episodes on and off when he gets very confused. was admitted for possible CVA, however brain MRI is negtaive for any infarct or hemorrhage. he does have NAGMA possible from worsening CKD, renal has been consulted, bicarbonate drip has been started today. Continue ASA, statin, BB, Plavix. Neurologic status check qshift. Aspiration precautions. (2) Acute kidney injury Current Visit: Yes Status: Acute Assessment and plan: will cotninue to monitor. follow renal recommnedations. family reports h/o wide fluctuations in his BP and hr. The pressure and heart rate has remained stable. renal US shows no evidence of obstruction. Has been started on bicarbonate drip for NAGMA (3) CKD (chronic kidney disease) stage 4, GFR 15-29 ml/min Current Visit: Yes Status: Acute Assessment and plan: as above, have been started on bicarb drip, recheck chem tomm. (4) Elevated troponin Current Visit: Yes Status: Acute Assessment and plan: may be 2/2 demand ischemia from hypotension. denies any chest pain now. he does have significant cardiac history with CABG and stent placement heparin drip has been stopped. will coninue ASA, statin, BB, imdur as per cardio Elevated troponin not likely from ACS. Has EDDIE and mental status changes/ dementia. Best candidate for medical mgmt. only. (5) Metabolic acidosis Current Visit: Yes Status: Acute Assessment and plan: has been started on bicarb drip for NAGMA possible 2/2 CKD. (6) CHF (congestive heart failure) Current Visit: No Status: Acute Assessment and plan: ECHO 04/07/16 - EF 55% with mild LVH, atypical septal motion suggesting BBB, mild diastolic dysfunction, mild MR, mild AR, pulm HTN RVSP 36 mmHg. currently appears to be euvolemic on exam., Qualifiers: Congestive heart failure type: unspecified congestive heart failure type Congestive heart failure chronicity: chronic Qualified Code(s): I50.9 - Heart failure, unspecified (7) COPD (chronic obstructive pulmonary disease) with acute bronchitis Current Visit: No Status: Acute Assessment and plan: stable. (8) CAD (coronary artery disease) Current Visit: No Status: Chronic Qualifiers: Coronary Disease-Associated Artery/Lesion type: unspecified vessel or lesion type [place] vs. transplanted heart: unspecified whether [place] or transplanted heart Associated angina: angina presence unspecified Qualified Code(s): I25.10 - Atherosclerotic heart disease of [place] coronary artery without angina pectoris (9) UTI (urinary tract infection) Current Visit: Yes Status: Acute Assessment and plan: ua showed mild UTI. urine cx shows no growth. dc ceftiaxone he is not a reliable historain giiven his baseline dementia. Qualifiers: Urinary tract infection type: site unspecified Hematuria presence: without hematuria Qualified Code(s): N39.0 - Urinary tract infection, site not specified - Time Spent With Patient 25 - 35 minutes - Subjective Interval history: patient seen at the bedside with the daughter. seems to be at His baseline now, and denies any chest pain or shortness of breath or dizziness. He has waxing and waning mental status ,will need HH set up for dc. has been started on bicarb drip by renal. - Constitutional Vitals: Temp Pulse Resp BP Pulse Ox 97.6 F 58 16 134/45 100 05/14/16 11:03 05/14/16 11:03 05/14/16 11:03 05/14/16 11:03 05/14/16 11:03 General appearance: Present: cooperative, A&O X 1, pleasant. Absent: mild distress Exam: General appearance: Present: A&O X 2, pleasant, no acute distress. Absent: answers questions appropriately - Head Head exam: Present: atraumatic, normocephalic - Eye Eye exam: Present: PERRL Pupils: Present: PERRL - Neck Neck exam general surgery: Present: supple, trachea midline - Respiratory Respiratory exam: Present: b/l clear breath sounds - Cardiovascular Cardiovascular exam: Present: distant heart sounds - GI/Abdominal GI/Abdominal exam: Present: normal bowel sounds, soft, tenderness (tenderness to deep palpation in middle of abdomen. ) Additional comments: scar present from cholecystectomy. - Extremities Exam Extremities exam: Absent: cyanotic, pedal edema Additional comments: ecchymosis and bruising on upper extremities bilaterally. - Neurological Exam Neurological exam: Present: alert, CN II-XII intact, no focal deficits, speech deficit Internal Medicine: Result - Labs CBC & Chem 7: 05/14/16 04:42 05/14/16 04:42 Labs: Short CBC 05/14/16 Range/Units 04:42 WBC 4.1 L (4.3-11.1) K/mcL Hgb 9.1 L (12.9-16.9) g/dL Hct 28.5 L (37.5-50.1) % Plt Count 101 L (140-400) K/mcL Neutrophils # 3.0 (1.6-8.9) K/mcL BMP 05/14/16 04:42 Sodium 138 Potassium 4.3 Chloride 114 H Carbon Dioxide 12 L BUN 81 H Creatinine 3.72 H Glucose 92 Calcium 8.7 Liver Function 05/14/16 Range/Units 04:42 Total Bilirubin 0.4 (0.2-1.2) mg/dL AST 27 (5-34) Units/L ALT 17 (0-55) Units/L Alkaline Phosphatase 95 (38-126) Units/L Albumin 2.7 L (3.5-5.0) g/dL - ABG Interpretation ABG results: ABG ABG pH 7.29 pH Units (7.32-7.45) L 05/13/16 08:40 ABG pCO2 25 mmHg (35-45) L 05/13/16 08:40 ABG pO2 95 mmHg (85-104) 05/13/16 08:40 ABG O2 Saturation 96 % (95-98) 05/13/16 08:40 PT/INR, D-dimer PT 12.8 Seconds (9.4-12.1) H 05/13/16 03:45 - Impressions Impressions Brain MRI 05/13/16 00:39 IMPRESSION: Cerebral atrophy. Chronic small vessel ischemic changes. No acute intracranial abnormality. Mild mucoperiosteal thickening of the ethmoid air cells and frontal sinuses. Mild opacification of the left mastoid air cells. D/ / 05/13/2016 11:14:34 Abena Brewster MD / duncan Interpreting Provider: Abena Brewster MD Retroperitoneum Ultrasound 05/13/16 14:30 IMPRESSION: Asymmetric atrophy and cortical thinning of the right kidney. No evidence of hydronephrosis. Subcentimeter left renal cyst. Incidental splenomegaly. D/ / Ida Morillo MD / Ida Morillo MD Interpreting Provider: Ida Morillo MD Consult Discharge Plan - Plan Referrals: Glenroy Nevarez CNP [Advanced Practice Nurse] - 06/04/16 8:00 am [facility] [Primary Care Provider] -
[2016-05-14] MEDS: Acetaminophen 325 MG TABLET PO PRN (15:54)
--- NOTE | 2016-05-14 16:47 | Electrocardiograph Report ---
[place] [id number] Test Date: 2016-05-12 Pat Name: Сергей Pal Department: 104 Room: 2A42 Gender: M Change Attendant: : 1945 Requested By: Esvin Quiros Order Number: [id number] Reading MD: Jamshid Apodaca Measurements Intervals [place] Rate: 73 P: -19 [place]: 185 QRS: -17 QRSD: 108 T: 153 QT: 405 QTc: 431 Interpretive Statements SINUS RHYTHM POSSIBLE LEFT ATRIAL ENLARGEMENT INFERIOR MYOCARDIAL INFARCTION, PROBABLY OLD Electronically Signed On 05-14-2016 16:46:14 EST by Jamshid Apodaca
--- NOTE | 2016-05-14 16:48 | Electrocardiograph Report ---
[place] [id number] Test Date: 2016-05-12 Pat Name: Сергей Pal Department: 104 Room: 2A42 Gender: M Unemployment Benefits Claims Taker: : 1945 Requested By: Jamshid Koenig Order Number: [id number] Reading MD: Jamshid Apodaca Measurements Intervals [place] Rate: 77 P: 10 SD: 172 QRS: 11 QRSD: 116 T: 78 QT: 410 QTc: 442 Interpretive Statements SINUS RHYTHM WITH OCCASIONAL VENTRICULAR PREMATURE COMPLEXES WITH OCCASIONAL SUPRAVENTRICULAR PREMATURE COMPLEXES POSSIBLE INFERIOR MYOCARDIAL INFARCTION, PROBABLY OLD Electronically Signed On 05-14-2016 16:46:57 EST by Jamshid Apodaca
[2016-05-14] MEDS: rOPINIRole 1 MG TABLET PO SCH (19:57)
[2016-05-14] MEDS: *HR* Heparin 5,000 UNIT/ML VIAL SQ SCH (20:04)
[2016-05-14] MEDS: Sodium Bicarbonate 150 MEQ in D5% in Water 1,000 ML IVC SCH (22:45)
[2016-05-15 06:27] LABS: Basophils % 0.4 %; Eosinophils # 0.4 K/mcL (0.0-0.6); Eosinophils % 8.5 %; Hematocrit 28.8 % (37.5-50.1); Hemoglobin 9.3 g/dL (12.9-16.9); Immature Granulocytes % 0.7 % (0-4); Lymphocytes # 0.7 K/mcL (0.6-4.6); Lymphocytes % 16.5 %; Mean Corpuscular HGB Conc 32.3 g/dL (31.6-35.5); Mean Corpuscular Hemoglobin 29.9 pg (28.0-33.3); Mean Corpuscular Volume 92.6 fL (83.0-100.0); Mean Platelet Volume 11.5 fL (9.4-12.4); Monocytes # 0.3 K/mcL (0.0-1.3); Monocytes % 7.3 %; Platelet Count 114 K/mcL (140-400); Red Blood Count 3.11 M/mcL (4.19-5.50); Red Cell Distribution Width 17.2 % (11.5-14.5); Segmented Neutrophils % 66.6 %
[2016-05-15 06:44] LABS: Albumin 2.9 g/dL (3.5-5.0); Albumin/Globulin Ratio 0.9 (1.1-2.2); Bilirubin,Total 0.4 mg/dL (0.2-1.2); Globulin 3.1 g/dL (2.4-3.5); Potassium 3.4 mEq/L (3.5-4.5)
[2016-05-15 08:27] LABS: Reactive Lymphocytes Present (Not Present)
[2016-05-15 08:28] LABS: Anisocytosis 1+ (Not Present); Platelet Estimate Slight Decrease (Normal); Poikilocytosis 1+ (Not Present)
--- NOTE | 2016-05-15 08:50 | Nephrology Progress Note ---
Date of Encounter: 05/15/16 Time of Encounter: 08:48 - Assessment and Plan (1) Acute kidney injury Current Visit: Yes Status: Acute The patient has acute kidney injury superimposed on chronic kidney disease. Baseline creatinine is 1.8-2.5. Creatinine is down to 3.11 today. Metabolic acidosis is improving. Patient has mild hypokalemia. I would recommend continuing the current IV fluids for another 24 hours. We will provide potassium supplementation. (2) Metabolic acidosis Current Visit: Yes Status: Acute (3) CKD (chronic kidney disease) stage 4, GFR 15-29 ml/min Current Visit: Yes Status: Acute (4) UTI (urinary tract infection) Current Visit: Yes Status: Acute Qualifiers: Urinary tract infection type: site unspecified Hematuria presence: without hematuria Qualified Code(s): N39.0 - Urinary tract infection, site not specified (5) Severe peripheral arterial disease Current Visit: No Status: Acute Subjective Principal diagnosis: EDDIE Interval history: Patient is alert but not 100% oriented. He voices no complaints. His renal function is starting to improve. Creatinine has gone from 3.72 down to 3.11. Metabolic acidosis is also improving. Objective - Vital Signs Vital signs: Vital Signs Temp Pulse Resp BP Pulse Ox 05/15/16 07:17 98.1 F 64 18 159/74 98 05/15/16 03:35 97.6 F 53 18 81/55 100 05/14/16 22:39 97.4 F L 59 16 142/56 98 05/14/16 19:38 97.3 F L 57 140/53 100 05/14/16 15:42 97.9 F 60 16 152/52 100 05/14/16 11:03 97.6 F 58 16 134/45 100 Intake and Output 05/14/16 05/15/16 05/15/16 23:59 07:59 15:59 Intake Total 823 / 823 0 / 0 Output Total 250 / 250 0 / 0 Balance 573 / 573 0 / 0 Intake: IV Fluids 583 / 583 Sodium Bicarbonate 150 583 / 583 MEQ In Dextrose 5% 1,000 ML @ 75 mls/hr IVC . [id number] [facility] Rx#: [id number] Oral 240 / 240 0 / 0 Output: Urine 250 / 250 0 / 0 Urethral (Desouza) 250 / 250 Other: Percent of Meal Consumed 10% - General Appearance Exam: Patient is alert. He is in no acute distress. Lungsbreath sounds otherwise clear. Heart regular rhythm. Abdomen is benign. There is no peripheral edema. Desouza catheter is in place. He is on the maintenance IV of D5W with sodium bicarbonate. - Lab 05/15/16 06:02 05/15/16 06:02 Most recent lab results ABG pH 7.29 pH Units (7.32-7.45) L 05/13/16 08:40 ABG pCO2 25 mmHg (35-45) L 05/13/16 08:40 ABG pO2 95 mmHg (85-104) 05/13/16 08:40 ABG HCO3 12.0 mEQ/L (21-27) L 05/13/16 08:40 ABG O2 Saturation 96 % (95-98) 05/13/16 08:40 Calcium 9.0 mg/dL (8.6-10.8) 05/15/16 06:02 Phosphorus 6.1 mg/dL (2.3-4.7) H 05/13/16 08:10 Magnesium 1.7 mg/dL (1.6-2.6) 05/13/16 03:45 Consult Discharge Plan - Plan Referrals: Glenroy Nevarez CNP [Advanced Practice Nurse] - 06/04/16 8:00 am [facility] [Primary Care Provider] -
[2016-05-15] MEDS: Aspirin Enteric Coated 81 MG Tablet PO SCH (09:04)
[2016-05-15] MEDS: Isosorbide MONOnitrate (24 HR) 30 MG TAB.ER.24H PO SCH (09:04)
[2016-05-15] MEDS: *HR* Heparin 5,000 UNIT/ML VIAL SQ SCH ×2 (09:04→18:08)
[2016-05-15] MEDS: Metoprolol XL (24 HR) Succ 25 MG TAB.ER.24H PO SCH (09:05)
[2016-05-15] MEDS: Calcium Acetate 667 MG CAPSULE PO SCH ×3 (09:05→17:15)
[2016-05-15 09:18] LABS: Urine Collection Duration RANDOM hr; Urine Collection Volume RANDOM mL
--- NOTE | 2016-05-15 09:29 | Internal Med Progress Note ---
Date of Encounter: 05/15/16 Time of Encounter: 09:27 - Assessment and plan (1) Acute encephalopathy Current Visit: Yes Status: Acute Assessment and plan: currently at baseline he has baseline dementia and has episodes on and off when he gets very confused. was admitted for possible CVA, however brain MRI is negtaive for any infarct or hemorrhage. he does have NAGMA possible from worsening CKD, renal has been consulted, bicarbonate drip has been started , today bicarb is 19. Continue ASA, statin, BB, Plavix. Neurologic status check qshift. Aspiration precautions. (2) Acute kidney injury Current Visit: Yes Status: Acute Assessment and plan: will cotninue to monitor. follow renal recommnedations. family reports h/o wide fluctuations in his BP and hr. The pressure and heart rate has remained stable. renal US shows no evidence of obstruction. Has been started on bicarbonate drip for NAGMA, continue for 24 hrs. (3) CKD (chronic kidney disease) stage 4, GFR 15-29 ml/min Current Visit: Yes Status: Acute Assessment and plan: as above, have been started on bicarb drip, today HCO3at 19. renal recommneded continue for another 24 hrs. (4) Elevated troponin Current Visit: Yes Status: Acute Assessment and plan: may be 2/2 demand ischemia from hypotension. denies any chest pain now. he does have significant cardiac history with CABG and stent placement heparin drip has been stopped. will coninue ASA, statin, BB, imdur as per cardio Elevated troponin not likely from ACS. Has EDDIE and mental status changes/ dementia. Best candidate for medical mgmt. only. (5) Metabolic acidosis Current Visit: Yes Status: Acute Assessment and plan: has been started on bicarb drip for NAGMA possible 2/2 CKD. bicarb at 19 today, continue bicard drip for another 24 hrs. (6) CHF (congestive heart failure) Current Visit: No Status: Acute Assessment and plan: ECHO 04/07/16 - EF 55% with mild LVH, atypical septal motion suggesting BBB, mild diastolic dysfunction, mild MR, mild AR, pulm HTN RVSP 36 mmHg. currently appears to be euvolemic on exam., Qualifiers: Congestive heart failure type: unspecified congestive heart failure type Congestive heart failure chronicity: chronic Qualified Code(s): I50.9 - Heart failure, unspecified (7) COPD (chronic obstructive pulmonary disease) with acute bronchitis Current Visit: No Status: Acute Assessment and plan: stable. (8) CAD (coronary artery disease) Current Visit: No Status: Chronic Qualifiers: Coronary Disease-Associated Artery/Lesion type: unspecified vessel or lesion type [place] vs. transplanted heart: unspecified whether [place] or transplanted heart Associated angina: angina presence unspecified Qualified Code(s): I25.10 - Atherosclerotic heart disease of [place] coronary artery without angina pectoris (9) UTI (urinary tract infection) Current Visit: Yes Status: Acute Assessment and plan: ua showed mild UTI. urine cx shows no growth. dc ceftiaxone he is not a reliable historain giiven his baseline dementia. Qualifiers: Urinary tract infection type: site unspecified Hematuria presence: without hematuria Qualified Code(s): N39.0 - Urinary tract infection, site not specified - Time Spent With Patient 25 - 35 minutes - Subjective Interval history: patient seen at the bedside . seems to be at His baseline now, and denies any chest pain or shortness of breath or dizziness. He has waxing and waning mental status ,will need HH set up for dc. has been started on bicarb drip by renal, recommneded to continue for the next 24 hrs. - Constitutional Vitals: Temp Pulse Resp BP Pulse Ox 98.1 F 64 18 159/74 98 05/15/16 07:17 05/15/16 07:17 05/15/16 07:17 05/15/16 07:17 05/15/16 07:17 General appearance: Present: cooperative, A&O X 1, pleasant. Absent: mild distress Exam: General appearance: Present: A&O X 2, pleasant, no acute distress. Absent: answers questions appropriately - Head Head exam: Present: atraumatic, normocephalic - Eye Eye exam: Present: PERRL Pupils: Present: PERRL - Neck Neck exam general surgery: Present: supple, trachea midline - Respiratory Respiratory exam: Present: b/l clear breath sounds - Cardiovascular Cardiovascular exam: Present: distant heart sounds - GI/Abdominal GI/Abdominal exam: Present: normal bowel sounds, soft, tenderness (tenderness to deep palpation in middle of abdomen. ) Additional comments: scar present from cholecystectomy. - Extremities Exam Extremities exam: Absent: cyanotic, pedal edema Additional comments: ecchymosis and bruising on upper extremities bilaterally. - Neurological Exam Neurological exam: Present: alert, CN II-XII intact, no focal deficits, speech deficit Internal Medicine: Result - Labs CBC & Chem 7: 05/15/16 06:02 05/15/16 06:02 Labs: Short CBC 05/15/16 Range/Units 06:02 WBC 4.5 (4.3-11.1) K/mcL Hgb 9.3 L (12.9-16.9) g/dL Hct 28.8 L (37.5-50.1) % Plt Count 114 L (140-400) K/mcL Neutrophils # 3.0 (1.6-8.9) K/mcL BMP 05/15/16 06:02 Sodium 137 Potassium 3.4 L Chloride 108 Carbon Dioxide 19 BUN 73 H Creatinine 3.11 H Glucose 103 H Calcium 9.0 Liver Function 05/15/16 Range/Units 06:02 Total Bilirubin 0.4 (0.2-1.2) mg/dL AST 22 (5-34) Units/L ALT 15 (0-55) Units/L Alkaline Phosphatase 105 (38-126) Units/L Albumin 2.9 L (3.5-5.0) g/dL - ABG Interpretation ABG results: ABG ABG pH 7.29 pH Units (7.32-7.45) L 05/13/16 08:40 ABG pCO2 25 mmHg (35-45) L 05/13/16 08:40 ABG pO2 95 mmHg (85-104) 05/13/16 08:40 ABG O2 Saturation 96 % (95-98) 05/13/16 08:40 PT/INR, D-dimer PT 12.8 Seconds (9.4-12.1) H 05/13/16 03:45 - Impressions Impressions Brain MRI 05/13/16 00:39 IMPRESSION: Cerebral atrophy. Chronic small vessel ischemic changes. No acute intracranial abnormality. Mild mucoperiosteal thickening of the ethmoid air cells and frontal sinuses. Mild opacification of the left mastoid air cells. D/ / 05/13/2016 11:14:34 Abena Brewster MD / duncan Interpreting Provider: Abena Brewster MD Consult Discharge Plan - Plan Referrals: Glenroy Nevarez CNP [Advanced Practice Nurse] - 06/04/16 8:00 am [facility] [Primary Care Provider] -
[2016-05-15] MEDS: Sodium Bicarbonate 150 MEQ in D5% in Water 1,000 ML IVC SCH (15:14)
[2016-05-15] MEDS: rOPINIRole 1 MG TABLET PO SCH (20:06)
[2016-05-16] MEDS: Sodium Bicarbonate 150 MEQ in D5% in Water 1,000 ML IVC SCH (06:13)
[2016-05-16] MEDS: *HR* Heparin 5,000 UNIT/ML VIAL SQ SCH (06:14)
[2016-05-16 06:40] LABS: Basophils % 0.2 %; Eosinophils # 0.2 K/mcL (0.0-0.6); Eosinophils % 3.8 %; Hematocrit 26.4 % (37.5-50.1); Hemoglobin 8.8 g/dL (12.9-16.9); Immature Granulocytes % 0.4 % (0-4); Lymphocytes # 1.1 K/mcL (0.6-4.6); Lymphocytes % 23.9 %; Mean Corpuscular HGB Conc 33.3 g/dL (31.6-35.5); Mean Corpuscular Hemoglobin 30.3 pg (28.0-33.3); Mean Platelet Volume 11.6 fL (9.4-12.4); Monocytes # 0.3 K/mcL (0.0-1.3); Monocytes % 6.6 %; Platelet Count 111 K/mcL (140-400); Red Cell Distribution Width 17.2 % (11.5-14.5); Segmented Neutrophils % 65.1 %
[2016-05-16 07:01] LABS: Albumin 2.8 g/dL (3.5-5.0); Bilirubin,Total 0.5 mg/dL (0.2-1.2); Calcium 8.9 mg/dL (8.6-10.8); Globulin 2.9 g/dL (2.4-3.5); Potassium 3.7 mEq/L (3.5-4.5); Total Protein 5.7 g/dL (6.0-8.3)
[2016-05-16] MEDS: Isosorbide MONOnitrate (24 HR) 30 MG TAB.ER.24H PO SCH (09:03)
[2016-05-16] MEDS: Aspirin Enteric Coated 81 MG Tablet PO SCH (09:03)
[2016-05-16] MEDS: Metoprolol XL (24 HR) Succ 25 MG TAB.ER.24H PO SCH (09:03)
[2016-05-16] MEDS: Calcium Acetate 667 MG CAPSULE PO SCH ×2 (09:03→12:08)
--- NOTE | 2016-05-16 09:26 | Discharge Summary ---
Date of Encounter: 05/16/16 Time of Encounter: 09:24 - Discharge Diagnosis (1) Acute encephalopathy Priority: Primary Status: Acute (2) Acute kidney injury Priority: Primary Status: Acute (3) CKD (chronic kidney disease) stage 4, GFR 15-29 ml/min Priority: Secondary Status: Acute (4) Elevated troponin Priority: Secondary Status: Acute (5) Metabolic acidosis Priority: Primary Status: Acute (6) CHF (congestive heart failure) Priority: Secondary Status: Acute Qualifiers: Congestive heart failure type: unspecified congestive heart failure type Congestive heart failure chronicity: chronic Qualified Code(s): I50.9 - Heart failure, unspecified (7) COPD (chronic obstructive pulmonary disease) with acute bronchitis Priority: Secondary Status: Acute (8) CAD (coronary artery disease) Priority: Secondary Status: Chronic Qualifiers: Coronary Disease-Associated Artery/Lesion type: unspecified vessel or lesion type [place] vs. transplanted heart: unspecified whether [place] or transplanted heart Associated angina: angina presence unspecified Qualified Code(s): I25.10 - Atherosclerotic heart disease of [place] coronary artery without angina pectoris (9) UTI (urinary tract infection) Priority: Secondary Status: Acute Qualifiers: Urinary tract infection type: site unspecified Hematuria presence: without hematuria Qualified Code(s): N39.0 - Urinary tract infection, site not specified - Discharge Medications Prescriptions: Isosorbide MONOnitrate (24 HR) [Imdur] 30 mg PO DAILY #30 tab.er.24h Sodium Bicarbonate 650 mg PO BID #30 tablet Home Medications: Calcium Acetate [Phos-LO] 667 mg PO TIDWM 03/09/15 [History] Ranitidine HCl [Zantac] 150 mg PO DAILY PRN 03/09/15 [History] Aspirin 81 mg PO DAILY tab.chew 03/15/15 [Rx] Allopurinol [Zyloprim 100 MG] 200 mg PO DAILY 07/05/15 [History] Amlodipine [Norvasc] 5 mg PO DAILY 07/05/15 [History] Atorvastatin [Lipitor] 80 mg PO HS 07/05/15 [History] Cetirizine HCl [Zyrtec] 5 mg PO DAILY PRN 07/05/15 [History] Clopidogrel [Plavix] 75 mg PO DAILY 07/05/15 [History] Furosemide [Lasix] 40 mg PO BID 07/05/15 [History] Loperamide [Imodium] 2 mg PO TID PRN 07/05/15 [History] Nitroglycerin [Nitrostat] 0.4 mg SL Q5M PRN 07/05/15 [History] Sertraline [Zoloft] 50 mg PO QAM 07/05/15 [History] Carboxymethylcellulos/Glycerin [Refresh Optive Gel Eye Drops] 1 drop BOTH EYES QID 04/07/16 [History] Cholecalciferol (D-3) [Vitamin D] 1,000 unit PO BID 04/07/16 [History] Lidocaine 4% CRM (LMX) [Lmx 4] 1 appl TP TID 04/07/16 [History] Nitroglycerin [Nitro-Dur] 1 patch TP DAILY 04/07/16 [History] Potassium Chloride [K-Tab ER] 10 meq PO DAILY 04/07/16 [History] Pregabalin [Lyrica] 50 mg PO BID 04/07/16 [History] Ropinirole [Requip] 1 mg PO HS 04/07/16 [History] Tiotropium [Spiriva] 2 puff IH DAILY 04/07/16 [History] Metoprolol XL (24 HR) Succ [Toprol Xl] 12.5 mg PO DAILY #30 tab.er.24h 04/10/16 [Rx] Nut.tx.impaired Digest Fxn [Ensure Clear] 1 bottle PO BID 05/12/16 [History] Isosorbide MONOnitrate (24 HR) [Imdur] 30 mg PO DAILY #30 tab.er.24h 05/16/16 [ Rx] Sodium Bicarbonate 650 mg PO BID #30 tablet 05/16/16 [Rx] Allergies/Adverse Reactions: Allergies morphine Allergy (Unknown, Verified 05/12/16 15:59) Rash ampicillin [From Unasyn] Allergy (Verified 05/12/16 15:59) Hives nicotine Allergy (Verified 05/12/16 15:59) Rash Nicotine patch sulbactam [From Unasyn] Allergy (Verified 05/12/16 15:59) Hives lactose Adverse Reaction (Verified 05/12/16 15:59) Nausea Procedures/tests Complete & Pending: Procedures Performed prior 72 hours Category Date Time Status Retroperitoneal Ultrasound - Complete [US Exams 05/13/16 14:30 Completed retroperitoneal comp] [US] Routine ECG 12 lead ECG [ECG] Routine Y 05/13/16 15:50 Completed Date of admission: 05/12/16 21:39 [facility] physician: [facility] Consults: 05/12/16 23:17 Consult to Occupational Therapy [CONS] Routine Comment: Evaluate, develop and implement POC Consult to Physical Therapy [CONS] Routine Comment: Evaluate, develop and implement POC Consult to Applications Coordinator [CONS] Routine Reason for SW Consult: discharge planning, maybe qualify for home health? [facility]. 05/13/16 00:40 Consult to Nephrology [CONS] Routine Consulting Provider: [facility] Reason for Consult: EDDIE on CKD Call Completed: No 05/13/16 01:50 Consult to Speech Therapy [CONS] Routine Comment: Evaluate, develop and implement POC Reason for Consult: swallow eval, make recommendations for type of food he can swallow. Call Completed: No 05/13/16 12:17 Consult to Cardiology [CONS] Routine Comment: Consulting Provider: Cardiology Ines Reason for Consult: please evaluate for elevated trop in a patinet with significant cardiac history who came in for syncope.Thank you Call Completed: Yes Discharging clinician: Beryl Angulo Anticipated date of discharge: 05/16/16 - Patient Status Disposition: Home Health Service Condition: Fair Functional capacity at discharge: uses cane/walker Overall status at discharge: patient is back to baseline - Discharge Instructions Follow Up With: Glenroy Nevarez CNP [Advanced Practice Nurse] - 06/04/16 8:00 am [facility]Primary Care Provider[facility] - (Patient has home base [place] PCP. HEAD WAITER/WAITRESS BANQUET will come see patient at home within 5-7 days from today for follow up!) - Diet and Activity Activity: as per physical therapy Diet: advance to your usual diet Interval History: Mr. Pal is a 70 year old male with PMHx of Dementia, CAD (with hx of bypass graft), Gout, PAD, CKD stage 4, peripheral neuropathy, CAD, HTN, GERD, COPD (not on home oxygen), PTSD, CHF (last echo on 04/07/16 showed LVEF 55%). Patient came as a transfer from the [place] hospital. Patient is a poor historian due to his dementia. History was obtained from his daughter Efrain, as per the daughter he was not at his baseline and was more confused though he has baseline dementia and has confusion on and off.patient had an episode where he fell in the bathroom. At that time, he was found to have fecal incontinence. HE was admitted for work up for CVA. MRI brain was done that was negative for infarct or hemorrhage. he was noted to have NAGMA from CKD, renal was consulted and he was started on Bicarb drip. acidosis imporved, his mental status is at baseline and he is being dc today with HH in stable condition. he will be given oral bicarb and will f/u with renal as OP. Hospital course: Mr. Pal is a 70 year old male - Time Spent with Patient Total time spent providing and/or coordinating discharge services: - Constitutional Vitals: Temp Pulse Resp BP Pulse Ox 97.4 F L 68 14 144/76 97 05/16/16 07:30 05/16/16 07:30 05/16/16 07:30 05/16/16 07:30 05/16/16 07:30 General appearance: Present: cooperative, A&O X 1, pleasant. Absent: mild distress Exam: Head Head exam: Present: atraumatic, normocephalic - Eye Eye exam: Present: PERRL Pupils: Present: PERRL - Neck Neck exam general surgery: Present: supple, trachea midline - Respiratory Respiratory exam: Present: b/l clear, no added sounds - Cardiovascular Cardiovascular exam: Present: distant heart sounds - GI/Abdominal GI/Abdominal exam: Present: normal bowel sounds, soft, tenderness (tenderness to deep palpation in middle of abdomen. ) Additional comments: scar present from cholecystectomy. - Extremities Exam Extremities exam: Absent: cyanotic, pedal edema - Neurological Exam Neurological exam: Present: alert, CN II-XII intact, no focal deficitst
--- NOTE | 2016-05-16 10:28 | Nephrology Progress Note ---
Date of Encounter: 05/16/16 Time of Encounter: 10:15 - Assessment and Plan (1) Acute kidney injury Current Visit: Yes Status: Acute AKIsuperimposed on CKD. Baseline creatinine is 1.8-2.5. Creatinine is down to 2.45 today. Metabolic acidosis is improved. Will stop bicarb in IV, decrease rate to 50cc/hr. Potassium improved. If discharged, will follow in office. Subjective Principal diagnosis: EDDIE Interval history: Laying in bed, states feeling better, thinks being discharged today. Objective - Vital Signs Vital signs: Vital Signs Temp Pulse Resp BP Pulse Ox 05/16/16 09:22 100 05/16/16 07:30 97.4 F L 68 14 144/76 97 05/16/16 04:34 98.3 F 73 16 137/65 95 05/16/16 00:15 98.0 F 70 16 131/54 98 05/15/16 20:09 100 05/15/16 20:04 98.3 F 72 16 129/53 98 05/15/16 15:58 98.0 F 66 18 152/74 97 05/15/16 11:05 98.0 F 66 18 149/77 97 Intake and Output 05/15/16 05/16/16 05/16/16 23:59 07:59 15:59 Intake Total 1070 / 1070 Output Total 600 / 600 Balance -600 / -600 1070 / 1070 Intake: IV Fluids 1070 / 1070 Sodium Bicarbonate 150 1070 / 1070 MEQ In Dextrose 5% 1,000 ML @ 75 mls/hr IVC . [id number] [facility] Rx#: [id number] Output: Catheter 600 / 600 Other: Weight 87 kg Patient Weight 05/16/16 23:59 Weight 87 kg - General Appearance General appearance: Present: well-developed, well-nourished, appears started age EENT: Present: mucous membranes moist Neck: Present: no JVD Respiratory: Present: clear Cardiology: Present: no edema, regular rate, regular rhythm Gastrointestinal: Present: normoactive bowel sounds, no tenderness Integumentary: Present: no rash, warm and dry Neurologic: Present: alert and oriented x3 - Lab 05/16/16 06:09 05/16/16 06:09 Most recent lab results ABG pH 7.29 pH Units (7.32-7.45) L 05/13/16 08:40 ABG pCO2 25 mmHg (35-45) L 05/13/16 08:40 ABG pO2 95 mmHg (85-104) 05/13/16 08:40 ABG HCO3 12.0 mEQ/L (21-27) L 05/13/16 08:40 ABG O2 Saturation 96 % (95-98) 05/13/16 08:40 Calcium 8.9 mg/dL (8.6-10.8) 05/16/16 06:09 Phosphorus 6.1 mg/dL (2.3-4.7) H 05/13/16 08:10 Magnesium 1.7 mg/dL (1.6-2.6) 05/13/16 03:45 Urine Total Protein SEE NOTE mg/d (10-140) 05/13/16 12:30 Consult Discharge Plan - Plan Referrals: Glenroy Nevarez [employer] ASSISTANT [Advanced Practice Nurse] - 06/04/16 8:00 am [facility] Care Provider[facility] - Prescriptions: Isosorbide MONOnitrate (24 HR) [Imdur] 30 mg PO DAILY #30 tab.er.24h Sodium Bicarbonate 650 mg PO BID #30 tablet
[2016-05-16] MEDS ORDERED: 0.9 % Sodium Chloride 1,000 ML IVC SCH (10:30)
[2016-05-16 12:01] VITALS: BP 161/70
[2016-05-19 14:47] LABS: Alpha 2 Globulin (PEP) 0.8 g/dL (0.5-1.1); Beta Globulin (PEP) 0.7 g/dL (0.5-1.1)
[2016-05-19 14:48] LABS: IFE Reflexed IFE Done
== END 2016-05-16 15:02 | disposition home health service (06) | DRG 682 ==
LOC: EMEROO 15:47 → 2ANU 21:39 → SUATTDRO 21:39 → 2ANU 23:06
PROVIDERS: ADMIT Pediatrics; ATTEND Internal Medicine Endocrinology, Diabetes & Metabolism

== ENCOUNTER 2016-08-06 20:55 | Inpatient (IN) ==
--- NOTE | 2016-08-06 21:47 | Emergency Department Note ---
Disposition Clinical Impression: CKD (chronic kidney disease) stage 4, GFR 15-29 ml/min Acute exacerbation of CHF (congestive heart failure) Qualifiers: Congestive heart failure type: unspecified congestive heart failure type Qualified Code(s): I50.9 - Heart failure, unspecified Pneumonia Qualifiers: Pneumonia type: due to unspecified organism Laterality: right Lung location: lower lobe of lung Qualified Code(s): J18.1 - Lobar pneumonia, unspecified organism Disposition: Admitted As Inpatient Condition: Good Time of Disposition: 22:47 General Adult HPI - General Chief complaint: ED Recheck/Abnormal Lab/Rx Stated complaint: elevated d-dimer Time Seen by Provider: 08/06/16 21:00 Source: EMS Nursing Notes Reviewed: Yes Vital Signs Reviewed: Yes - History of Present Illness HPI Narrative: Several week history of cough with productive sputum that is yellow or greenish. One-week history of increased weight gain 20 pounds. Does have history of CHF. Pain Scale: 4 - Related Data Home Medications Medication Instructions Recorded Confirmed Calcium Acetate [Phos-LO] 667 mg PO TIDWM 03/09/15 08/07/16 Ranitidine HCl [Zantac] 150 mg PO DAILY PRN 03/09/15 08/07/16 Allopurinol [Zyloprim 100 MG] 200 mg PO DAILY 07/05/15 08/07/16 Amlodipine [Norvasc] 5 mg PO DAILY 07/05/15 08/07/16 Atorvastatin [Lipitor] 80 mg PO HS 07/05/15 08/07/16 Cetirizine HCl [Zyrtec] 5 mg PO DAILY PRN 07/05/15 08/07/16 Clopidogrel [Plavix] 75 mg PO DAILY 07/05/15 08/07/16 Furosemide [Lasix] 40 mg PO BID 07/05/15 08/07/16 Loperamide [Imodium] 2 mg PO TID PRN 07/05/15 08/07/16 Nitroglycerin [Nitrostat] 0.4 mg SL Q5M PRN 07/05/15 08/07/16 Sertraline [Zoloft] 50 mg PO QAM 07/05/15 08/07/16 Carboxymethylcellulos/Glycerin 1 drop BOTH EYES QID 04/07/16 08/07/16 [Refresh Optive Gel Eye Drops] Cholecalciferol (D-3) [Vitamin D] 1,000 unit PO BID 04/07/16 08/07/16 Lidocaine 4% CRM (LMX) [Lmx 4] 1 appl TP TID 04/07/16 08/07/16 Nitroglycerin [Nitro-Dur] 1 patch TP DAILY 04/07/16 05/12/16 Potassium Chloride [K-Tab ER] 10 meq PO DAILY 04/07/16 08/07/16 Pregabalin [Lyrica] 50 mg PO BID 04/07/16 08/07/16 Ropinirole [Requip] 1 mg PO HS 04/07/16 08/07/16 Tiotropium [Spiriva] 2 puff IH DAILY 04/07/16 08/07/16 Nut.tx.impaired Digest Fxn [Ensure 1 bottle PO BID 05/12/16 08/07/16 Clear] Previous Rx's Medication Instructions Recorded Aspirin 81 mg PO DAILY tab.chew 03/15/15 Metoprolol XL (24 HR) Succ [Toprol 12.5 mg PO DAILY #30 tab.er.24h 04/10/16 Xl] Isosorbide MONOnitrate (24 HR) 30 mg PO DAILY #30 tab.er.24h 05/16/16 [Imdur] Allergies Allergy/AdvReac Type Severity Reaction Status Date / Time morphine Allergy Unknown Rash Verified 05/12/16 15:59 ampicillin [From Unasyn] Allergy Hives Verified 05/12/16 15:59 heparin Allergy See Verified 08/06/16 21:04 Comments nicotine Allergy Rash Verified 05/12/16 15:59 sulbactam [From Unasyn] Allergy Hives Verified 05/12/16 15:59 lactose AdvReac Nausea Verified 05/12/16 15:59 Limitations: ROS unobtainable due to patients medical condition (Patient has altered mental status.) Past Medical History - Past Medical History Medical history: Reports: arthritis, cardiomyopathy, CHF, COPD, coronary artery disease, GERD, hyperlipidemia, hypertension, myocardial infarction, osteoporosis , peripheral artery disease, renal disease, other Surgical history: Reports: angioplasty/stent, carotid endarterectomy, cholecystectomy, coronary bypass (CABG) (5 vessel in 07/2015), LE Bypass, LE vascular intervention, other Psychiatric history: Reports: anxiety, PTSD - Social History Smoking Status: Current every day smoker Smokeless Tobacco Status: No Alcohol use: Reports: none Drug use: Reports: none Physical Exam - General Limitations: altered mental status (dementia) General appearance: alert, in no apparent distress - Head Head exam: atraumatic, normocephalic - Eye Eye exam: Present: normal appearance, PERRL - ENT ENT exam: normal exam, normal oropharynx, mucous membranes moist - Neck Neck exam: Present: normal inspection, full ROM, trachea midline - Chest Chest inspection: Present: normal inspection, symmetric chest wall rise - Respiratory Respiratory exam: Present: other (rales, bilateral lower lobes). Absent: respiratory distress, wheezes - Cardiovascular Cardiovascular exam: Present: regular rate, normal rhythm, normal heart sounds - Abdominal Exam Abdominal exam: Present: soft, Non-Tender, normal bowel sounds - Extremities Exam Extremities exam: Present: normal inspection, full ROM, normal capillary refill. Absent: tenderness, pedal edema - Neurological Exam Neurological exam: Present: other (Arousable to voice and touch but quickly goes to sleep during exam.) - Skin Skin exam: Present: warm, dry, intact Course Course Narrative: Patient presented to the emergency department from the [place]. He is presenting with his daughter. Patient is asleep during most of exam he is arousable by touch but quickly goes back to sleep. Daughter states that he has had an increase in her cough and weight gain since April. She states over the past week he has gained approximately 20 pounds. He has had his Lasix increased several times since April and is now on 60 mg by mouth 3 times a day. Patient does have a history of CHF. She states that his right leg has been swelling but is not more swollen than the left side today. She states that she has noticed that the weight gain appears to be in his abdomen and face more so today than in his legs. He does not have pitting edema to his lower extremities however he does have mild Rales in his lower lobes bilaterally. He is slumped over in bed at this time. He is satting 100% oxygen on room air. He does not appear in distress. His heart tones are normal. He is demented which is consistent with his baseline. Patient's family states that he is slightly more demented than normal which is consistent with him being sick. They state that he lives at home with him and generally gets around minimally with a cane. He states that he does have a productive cough with green sputum recently but no fevers. - Reevaluation(s) Reevaluation #1: patient's BUN is 47. His creatinine is 3.68. This is increased from the creatinine June 25 which was 2.93. Patient's BNP is elevated at 1951. This is actually decreased from previous on June 25 which was 2174. Reevaluation #2: Patient has a right lower lobe infiltrate and worsening of a pleural effusion from previous chest x-ray. Will begin patient on Rocephin and azithromycin as patient just finished one week of Levaquin outpatient. We will also admit patient for CHF exacerbation as well as pneumonia and worsening of his pleural effusion. Patient's family states that while his mental status is generally demented he does appear more demented which is consistent with how he gets whenever he is sick. We have discussed at length with them testing for possible PE. At this time they are refusing DVT sound as well as a chest CT or VQ scan. I feel this is reasonable. The patient has poor kidney function and would not comply with the VQ scan. We have discussed at length with the family about this. And they are agreeable. Time: 22:44 - Consultations Consultation #1: Dr Sequeira accepted Pt in stable condition. Time: 23:47 Vital Signs Temperature 98.7 F 08/06/16 20:58 Pulse Rate 60 08/06/16 20:58 Respiratory Rate 18 08/06/16 20:58 Blood Pressure 149/67 08/06/16 20:58 O2 Sat by Pulse Oximetry 100 08/06/16 20:58 Temperature 97.4 F L 08/07/16 00:33 Pulse Rate 59 08/07/16 00:33 Respiratory Rate 12 08/07/16 00:33 Blood Pressure 171/69 08/07/16 00:33 O2 Sat by Pulse Oximetry 96 08/07/16 00:33 Oxygen Delivery Oxygen Delivery Room Air Medical Decision Making - Medical Records Medical records reviewed: Yes I reviewed the patient's medical records. - Lab Data Lab results reviewed: Yes I reviewed the patient's lab results. Lab Results 08/06/16 Range/Units 22:15 Troponin I 0.02 (0-0.03) ng/mL - Radiology Data Radiology results reviewed: Yes I reviewed the patient's radiology results. Chest X-Ray 08/06/16 21:45 IMPRESSION: Slight interval increase in size of a small right pleural effusion with associated right basilar airspace consolidation, representing either atelectasis, pneumonia, or aspiration. D/ / 08/06/2016 23:04:36 Chai Maldonado MD / duncan Interpreting Provider: Chai Maldonado MD - EKG Data EKG #1 EKG attestation: Yes I reviewed and interpreted this EKG. EKG results narrative: Sinus rhythm with a first-degree AV block. Ventricular rate 61. MI interval is 218. QRS duration is Y3. QT is 461. QTC is 464. No signs of acute ischemia noted. No significant changes from previous EKG dated 05/12/2016. Attestation Statement - Attestation Attestation: I, Jamshid Powers, examined this patient and my medical decision-making was reviewed with the CONCRETE BLOCK MASON/PA/Advanced Practice Nurse/Resident Physician. I agree with the documented findings, disposition and treatment plan as described except to the extent set forth below. 70-year-old male transferred to the emergency department from the [place] for further evaluation of elevated d-dimer and bilateral lower extremity swelling. states the patient has a long history of congestive heart failure and has gained over 20 pounds within the past few weeks. Patient has bilateral lower extremity swelling with mildly worsened edema of the right lower extremity compared to the left however the daughter states that this is chronic as the patient had a surgery of the right lower extremity. Daughter denies a history of previous DVT or PE. Patient is unable to give a history regarding his symptoms however the daughter states that the patient is at his baseline. Patient is only able to wake to give 2-3 word answers before falling back asleep. Patient denies chest pain, shortness of breath. Laboratory evaluation from the [place] shows a significantly elevated BNP with an elevated d-dimer however the patient also has a history of renal failure. Patient refuses to use dialysis and follows with nephrology as an outpatient. He also states the patient has a cough that Dr. of yellow-green sputum for the past week. Patient does not have a fever or elevation of his white blood cell count however the chest x-ray shows a right lower lobe pleural effusion which is concerning for additional pneumonia. Patient started on antibiotics in the emergency department. He apparently finished a course of levofloxacin within the past week. Patient will be admitted to the hospital for further care and evaluation.
[2016-08-06] MEDS ORDERED: Furosemide 40 MG/4 ML VIAL IVP ONE (22:35)
[2016-08-06] MEDS ORDERED: Levofloxacin 750 MG/150 ML 750 MG/150 ML BAG IVPB ONE (22:43)
[2016-08-06] MEDS ORDERED: Azithromycin 500 MG in D5% in Water 250 ML IVPB ONE (23:06)
[2016-08-07] MEDS ORDERED: Naloxone 0.4 MG/ML INJ IVP PRN (01:26)
[2016-08-07] MEDS ORDERED: Acetaminophen 325 MG TABLET PO PRN (01:26)
[2016-08-07] MEDS ORDERED: Ondansetron 4 MG/2 ML VIAL IVP PRN (01:26)
[2016-08-07] MEDS ORDERED: Nitroglycerin 0.4 MG TAB.SUBL SL PRN (01:38)
--- NOTE | 2016-08-07 01:47 | Internal Med History&Physical ---
Date of Encounter: 08/07/16 Time of Encounter: 00:30 Assessment and Plan (1) Elevated d-dimer Current visit: Yes Status: Acute Patient has elevated d-dimer. However, he has no chest pain, no tachycardia. His oxygen saturation 98% in room air. He has no calf pain/tenderness. Low likelihood of thrombosis/PE. - Pt cannot to do a CTA because of poor renal function - We will order doppler Legs and V/Q scan. - No full anticoagulation now because of low likelihood of PE. (2) CAD (coronary artery disease) Current visit: No Status: Chronic Qualifiers: Coronary Disease-Associated Artery/Lesion type: unspecified vessel or lesion type [place] vs. transplanted heart: unspecified whether [place] or transplanted heart Associated angina: angina presence unspecified Qualified Code(s): I25.10 - Atherosclerotic heart disease of [place] coronary artery without angina pectoris (3) CKD (chronic kidney disease) stage 4, GFR 15-29 ml/min Current visit: No Status: Acute Stable, creatinine level is about his baseline. Closely monitor renal function. Avoid nephrotoxic medication. (4) CHF (congestive heart failure) Current visit: No Status: Acute Patient has a weight gain and leg swelling, increased shortness of breath. Should consider CHF. - Repeat echo - Put patient on IV Lasix. - Strict I and O, weight daily. - Further management per Echo result. Qualifiers: Congestive heart failure type: unspecified congestive heart failure type Congestive heart failure chronicity: chronic Qualified Code(s): I50.9 - Heart failure, unspecified (5) Pneumonia Current visit: Yes Status: Acute Chest x-ray shows questionable pneumonia. Patient has a mild nonproductive cough. - We will place patient on Rocephin and azithromycin. - Oxygen therapy as needed. Qualifiers: Pneumonia type: due to unspecified organism Laterality: right Lung location: lower lobe of lung Qualified Code(s): J18.1 - Lobar pneumonia, unspecified organism (6) DVT prophylaxis Current visit: Yes Status: Acute Patient is allergic to heparin. Put him on EPCD. Internal Medicine - H&P: HPI Chief complaint: SOB and leg swelling Admitted From: Home Plans for Post Hospital Care: Home History of present illness: Mr. Pal is a 70 year old male transferred from [place] for shortness of breath and leg swelling. Patient is demented and there is no family member at bedside when I saw him. History is obtained mainly from [place] transfer form. Patient has increased shortness of breath and leg swelling recently. He has weight gain 14lb since 07/11/16, with increased leg swelling. Patient was also found [place] positive [place]. when I saw patient, he is awake alert pleasant, in no acute respiratory distress. Disoriented to time, place, and person, however, can answer my question regarding his body. He denies chest pain, nausea, diarrhea, abdominal pain. He said he has mild shortness of breath when laying flat. He has a mild nonproductive cough. Chest x-ray in emergency room shows questionable pneumonia. Patient was admitted for the management. Lab from [place] reviewed: BMP: 142/4.5/109/24/47/3.68/123; CBC 8.7/10.6/33.4/151. Cannot discuss CODE STATUS with patient because of severe dementia. We will put a full code now, may modify if there is any information updated Past Med Surg Social Fam HX - Past Medical History Medical history: arthritis, cardiomyopathy, CHF, COPD, coronary artery disease, GERD, hyperlipidemia, hypertension, myocardial infarction, osteoporosis, peripheral artery disease, renal disease, other Psychiatric history: anxiety, PTSD - Past Surgical History Surgical History: angioplasty/stent, carotid endarterectomy, cholecystectomy, coronary bypass (CABG) (5 vessel in 07/2015), LE Bypass, LE vascular intervention , other - Social History Smoking Status: Current every day smoker Smokeless Tobacco Status: No Alcohol use: none Drug use: none - Family History Mother Living Status: Hx Family Cardiac Disorders: Yes ([place]) Internal Medicine - H&P: Meds Calcium Acetate [Phos-LO] 667 mg PO TIDWM 03/09/15 [History] Ranitidine HCl [Zantac] 150 mg PO DAILY PRN 03/09/15 [History] Aspirin 81 mg PO DAILY tab.chew 03/15/15 [Rx] Allopurinol [Zyloprim 100 MG] 200 mg PO DAILY 07/05/15 [History] Amlodipine [Norvasc] 5 mg PO DAILY 07/05/15 [History] Atorvastatin [Lipitor] 80 mg PO HS 07/05/15 [History] Cetirizine HCl [Zyrtec] 5 mg PO DAILY PRN 07/05/15 [History] Clopidogrel [Plavix] 75 mg PO DAILY 07/05/15 [History] Furosemide [Lasix] 40 mg PO BID 07/05/15 [History] Loperamide [Imodium] 2 mg PO TID PRN 07/05/15 [History] Nitroglycerin [Nitrostat] 0.4 mg SL Q5M PRN 07/05/15 [History] Sertraline [Zoloft] 50 mg PO QAM 07/05/15 [History] Carboxymethylcellulos/Glycerin [Refresh Optive Gel Eye Drops] 1 drop BOTH EYES QID 04/07/16 [History] Cholecalciferol (D-3) [Vitamin D] 1,000 unit PO BID 04/07/16 [History] Lidocaine 4% CRM (LMX) [Lmx 4] 1 appl TP TID 04/07/16 [History] Nitroglycerin [Nitro-Dur] 1 patch TP DAILY 04/07/16 [History] Potassium Chloride [K-Tab ER] 10 meq PO DAILY 04/07/16 [History] Pregabalin [Lyrica] 50 mg PO BID 04/07/16 [History] Ropinirole [Requip] 1 mg PO HS 04/07/16 [History] Tiotropium [Spiriva] 2 puff IH DAILY 04/07/16 [History] Metoprolol XL (24 HR) Succ [Toprol Xl] 12.5 mg PO DAILY #30 tab.er.24h 04/10/16 [Rx] Nut.tx.impaired Digest Fxn [Ensure Clear] 1 bottle PO BID 05/12/16 [History] Isosorbide MONOnitrate (24 HR) [Imdur] 30 mg PO DAILY #30 tab.er.24h 05/16/16 [ Rx] Allergies morphine Allergy (Unknown, Verified 05/12/16 15:59) Rash ampicillin [From Unasyn] Allergy (Verified 05/12/16 15:59) Hives heparin Allergy (Verified 08/06/16 21:04) See Comments nicotine Allergy (Verified 05/12/16 15:59) Rash Nicotine patch sulbactam [From Unasyn] Allergy (Verified 05/12/16 15:59) Hives lactose Adverse Reaction (Verified 05/12/16 15:59) Nausea All Systems PM: A 10-system review of systems was performed and is negative for pertinent findings except as documented above in the HPI. - Constitutional Vitals: Temp Pulse Resp BP Pulse Ox 97.4 F L 59 12 171/69 96 08/07/16 00:33 08/07/16 00:33 08/07/16 00:33 08/07/16 00:33 08/07/16 00:33 General appearance: Present: A&O X 0, pleasant, no acute distress - Head Head exam: Present: atraumatic, normocephalic - Eye Eye exam: Present: PERRL, conjuntiva pink, sclera anicteric Pupils: Present: PERRL - Neck Neck exam general surgery: Present: supple, trachea midline. Absent: lymphadenopathy - Respiratory Respiratory exam: Present: CTAB, rhonchi (Diffuse rhonchi bilaterally). Absent : accessory muscle use, rales, wheezes - Cardiovascular Cardiovascular exam: Present: RRR, +S1, +S2. Absent: diastolic murmur, gallop, rubs, systolic murmur - GI/Abdominal GI/Abdominal exam: Present: normal bowel sounds, soft, no peritoneal signs. Absent: distended, tenderness - Extremities Exam Extremities exam: Present: pedal edema (Very mild pedal edema bilaterally), warm , radial pulses palpable and symetrical. Absent: calf tenderness, cyanotic - Neurological Exam Neurological exam: Present: CN II-XII intact, oriented X3, no focal deficits. Absent: pronater drift, facial droop, speech deficit - Skin Skin exam: Present: dry, intact
[2016-08-07 04:32] LABS: Basophils % 0.4 %; Eosinophils # 1.5 K/mcL (0.0-0.6); Eosinophils % 19.4 %; Hematocrit 31.9 % (37.5-50.1); Hemoglobin 10.2 g/dL (12.9-16.9); Lymphocytes # 0.9 K/mcL (0.6-4.6); Lymphocytes % 12.1 %; Mean Corpuscular Hemoglobin 31.3 pg (28.0-33.3); Mean Corpuscular Volume 97.9 fL (83.0-100.0); Mean Platelet Volume 10.4 fL (9.4-12.4); Monocytes # 0.5 K/mcL (0.0-1.3); Monocytes % 6.5 %; Neutrophils # 4.7 K/mcL (1.6-8.9); Platelet Count 126 K/mcL (140-400); Red Blood Count 3.26 M/mcL (4.19-5.50); Red Cell Distribution Width 15.9 % (11.5-14.5); Segmented Neutrophils % 60.6 %
[2016-08-07 04:57] LABS: Calcium 9.1 mg/dL (8.6-10.8); Magnesium 1.9 mg/dL (1.6-2.6); Phosphorous 4.1 mg/dL (2.3-4.7); Potassium 4.3 mEq/L (3.5-4.5)
[2016-08-07 04:59] LABS: Platelet Clumps Few (Not Present); Platelet Estimate Slight Decrease (Normal)
[2016-08-07] MEDS: Furosemide 40 MG/4 ML VIAL IVP SCH ×2 (08:54→16:34)
[2016-08-07] MEDS: amLODIPine 5 MG TABLET PO SCH (08:54)
[2016-08-07] MEDS: Metoprolol XL (24 HR) Succ 25 MG TAB.ER.24H PO SCH (08:55)
[2016-08-07] MEDS: Isosorbide MONOnitrate (24 HR) 30 MG TAB.ER.24H PO SCH (08:55)
[2016-08-07] MEDS: Aspirin 81 MG TAB.CHEW PO SCH (08:55)
--- NOTE | 2016-08-07 10:37 | Electrocardiograph Report ---
[place] [id number] Test Date: 2016-08-06 Pat Name: Сергей Pal Department: 105 Room: 3B43 Gender: M Training Associate: EC : [id number] Requested By: Beth Toledo Order Number: [id number] Reading MD: Jamshid Apodaca Measurements Intervals Pooler Rate: 61 P: 137 NM: 218 QRS: 160 QRSD: 103 T: 177 QT: 461 QTc: 464 Interpretive Statements SINUS RHYTHM WITH FIRST DEGREE AV BLOCK ARM LEADS REVERSED [INVERTED P AND QRS IN I] Electronically Signed On 08-07-2016 10:35:42 EDT by Jamshid Apodaca
--- NOTE | 2016-08-07 13:39 | Internal Med Progress Note ---
Date of Encounter: 08/07/16 Time of Encounter: 13:38 - Assessment and plan (1) Acute exacerbation of CHF (congestive heart failure) Current Visit: Yes Status: Acute Assessment and plan: Continue diuresis with lasix, monitor I/O strictly, cardiac fluid restriction diet, daily weight checks, follow ECHO Qualifiers: Congestive heart failure type: systolic Qualified Code(s): I50.23 - Acute on chronic systolic (congestive) heart failure (2) CAD (coronary artery disease) Current Visit: Yes Status: Chronic Assessment and plan: Chronic stable Qualifiers: Coronary Disease-Associated Artery/Lesion type: unspecified vessel or lesion type [place] vs. transplanted heart: unspecified whether [place] or transplanted heart Associated angina: angina presence unspecified Qualified Code(s): I25.10 - Atherosclerotic heart disease of [place] coronary artery without angina pectoris (3) Hyperlipidemia Current Visit: Yes Status: Chronic Assessment and plan: Continue home meds Qualifiers: Hyperlipidemia type: unspecified Qualified Code(s): E78.5 - Hyperlipidemia , unspecified (4) CKD (chronic kidney disease) stage 4, GFR 15-29 ml/min Current Visit: Yes Status: Chronic Assessment and plan: Cr stable and at baseline, monitor closely (5) Tobacco abuse Current Visit: Yes Status: Chronic Assessment and plan: NRT prn (6) Elevated d-dimer Current Visit: Yes Status: Acute Assessment and plan: Doppler negative Follow VQ scan (7) Dementia Current Visit: Yes Status: Chronic Assessment and plan: Oriented to person only Fall risk, ensure fall precautions Continue home meds Qualifiers: Dementia type: unspecified type Dementia behavioral disturbance: without behavioral disturbance Qualified Code(s): F03.90 - Unspecified dementia without behavioral disturbance (8) Pneumonia Current Visit: Yes Status: Acute Assessment and plan: Unspecified organiusm Send sputum Continue Ceftriaxone and azithromycin Qualifiers: Pneumonia type: due to unspecified organism Laterality: right Lung location: lower lobe of lung Qualified Code(s): J18.1 - Lobar pneumonia, unspecified organism - Subjective Interval history: 70 Y/O M with advanced dementia on admission for CHF exacerbation, pneumonia Seen and evaluated at bedside Denies new complains Oriented to person only Awaiting VQ scan Doppler negative for DVT or SVT - Constitutional Vitals: Temp Pulse Resp BP Pulse Ox 98.0 F 58 19 142/59 93 08/07/16 07:21 08/07/16 07:21 08/07/16 07:21 08/07/16 07:21 08/07/16 07:21 General appearance: Present: A&O X 1, pleasant, no acute distress - Head Head exam: Present: atraumatic, normocephalic - Eye Eye exam: Present: PERRL, conjuntiva pink, sclera anicteric Pupils: Present: PERRL - Neck Neck exam general surgery: Present: supple, trachea midline. Absent: lymphadenopathy - Respiratory Respiratory exam: Present: rales (few bibasilar crackles). Absent: accessory muscle use, rhonchi, wheezes - Cardiovascular Cardiovascular exam: Present: RRR, +S1, +S2. Absent: diastolic murmur, gallop, rubs, systolic murmur - GI/Abdominal GI/Abdominal exam: Present: normal bowel sounds, soft, no peritoneal signs. Absent: distended, tenderness - Extremities Exam Extremities exam: Present: pedal edema, warm, radial pulses palpable and symetrical. Absent: calf tenderness, cyanotic - Neurological Exam Neurological exam: Present: alert, CN II-XII intact, no focal deficits. Absent : oriented X3, pronater drift, facial droop, speech deficit - Skin Skin exam: Present: dry, intact Internal Medicine: Result - Labs CBC & Chem 7: 08/07/16 03:47 08/07/16 03:47 Labs: Short CBC 08/07/16 Range/Units 03:47 WBC 7.8 (4.3-11.1) K/mcL Hgb 10.2 L (12.9-16.9) g/dL Hct 31.9 L (37.5-50.1) % Plt Count 126 L (140-400) K/mcL Neutrophils # 4.7 (1.6-8.9) K/mcL BMP 08/07/16 03:47 Sodium 140 Potassium 4.3 Chloride 112 H Carbon Dioxide 16 L BUN 51 H Creatinine 3.60 H Glucose 67 L Calcium 9.1 Consult Discharge Plan - Plan [facility]: [facility] [Primary Care Provider[facility] -
--- NOTE | 2016-08-07 14:05 | ECHO - Doppler Report ---
Echocardiogram Name: Сергей Pal Date of Study: 08/07/2016 Date: 1945 Ht: 69.0 in Medical Record#: [id number] Age: 70 Wt: 219.0 lb Gender: Male BSA: 2.15 Order #: [id number] Location: [facility] Room #: [id number] Reading Physician: Willy Roy MD, [facility] Barrel Inspector Tight: Diego Wilburn RN Ordering Physician: Sudeep Carter MD Primary Physician: [facility] Indications: Shortness of breath Impressions: Sinus rhythm and sinus bradycardia. Normal LV systolic function, LVEF 55-60%. Atypical septal motion consistent with prior cardiac surgery. Mild concentric left ventricular hypertrophy. Moderate left ventricular diastolic dysfunction. Normal right ventricular size and function. Severely dilated left atrium. Mild aortic regurgitation. Mild mitral regurgitation. No evidence of pulmonary hypertension. Left Ventricular Wall Motion: Rest Echo Findings All wall segments showed normal motion. Findings: Study Quality * Technically adequate exam. ECG Findings * Sinus rhythm and sinus bradycardia. Left Ventricle * Normal LV systolic function, LVEF 55-60%. * Atypical septal motion consistent with prior cardiac surgery. * Mild concentric left ventricular hypertrophy. * Moderate left ventricular diastolic dysfunction. Right Ventricle * Normal right ventricular size and function. Left Atrium * Severely dilated left atrium. Right Atrium * Normal right atrial size. Aorta * Normally sized aortic root. Pericardium * There is no pericardial effusion present. IVC * Normal IVC dimensions and inspiratory collapse. Aortic Valve * Trileaflet aortic valve with moderately calcified leaflets. * No aortic stenosis. * Mild aortic regurgitation. Mitral Valve * Mild-moderate mitral annular calcification * No mitral stenosis. * Mild mitral regurgitation. Tricuspid Valve * Normal tricuspid valve structure. * No tricuspid stenosis. * Trace tricuspid regurgitation. * No evidence of pulmonary hypertension. Pulmonic Valve * Pulmonic valve not well visualized. * No pulmonic stenosis. * No pulmonic regurgitation. History Hypertension Hypercholesteremia Years 30 Packs 0.5 History of CAD/PTCA Myocardial Infarction Coronary Artery Bypass Graft Congestive Heart Failure 04/07/2016 a Previous Echo was performed. Measurements: BP: 142/ 59 2D Normal Values RVIDd: 3.70 cm IVSd: 1.20 cm 0.6 - 1.0 cm LVIDd: 5.50 cm 3.7 - 5.6 cm LVPWd: 1.30 cm 0.6 - 1.1 cm LVIDs: 3.90 cm 1.5 - 3.6 cm LVOT Diam: 3.50 cm LA volume: 110 Mitral Valve Peak E:1.30 m/sec Peak A:1.04 m/sec E/A Ratio:1.3 Peak E' Lat Luis:7.6 cm/s Peak E' Med Luis:6.53 cm/s E/E' Lat Ratio:17.1 E/E' Med Ratio:19.9 Tricuspid Valve TV Regurg Peak Grad: 26.00mmHg TV Regurg Peak Luis: 2.54m/sec Updated by Willy Roy MD, [facility] on 08/07/2016 2:00:52 PM electronically signed on 08/07/2016 2:01:18 PM with status of Final Wall Motion U[place]: 1=Normal, 2=Hypokinesis, 3=Akinesis, 4=Dyskinesis, 5=Aneurysmal, 6=Hyperkinetic, X=Not Visualized (Blank)=Missing
[2016-08-08] MEDS: Azithromycin 500 MG in D5% in Water 250 ML IVPB SCH (00:54)
[2016-08-08 05:15] LABS: Basophils % 0.3 %; Eosinophils # 1.6 K/mcL (0.0-0.6); Eosinophils % 20.2 %; Hematocrit 33.1 % (37.5-50.1); Hemoglobin 10.6 g/dL (12.9-16.9); Immature Granulocytes % 0.9 % (0-4); Lymphocytes # 0.9 K/mcL (0.6-4.6); Lymphocytes % 11.6 %; Mean Corpuscular Hemoglobin 31.1 pg (28.0-33.3); Mean Corpuscular Volume 97.1 fL (83.0-100.0); Mean Platelet Volume 10.4 fL (9.4-12.4); Monocytes # 0.5 K/mcL (0.0-1.3); Monocytes % 6.4 %; Neutrophils # 4.7 K/mcL (1.6-8.9); Platelet Count 140 K/mcL (140-400); Red Blood Count 3.41 M/mcL (4.19-5.50); Segmented Neutrophils % 60.6 %
[2016-08-08 05:36] LABS: Calcium 8.8 mg/dL (8.6-10.8); Potassium 4.8 mEq/L (3.5-4.5)
[2016-08-08 05:39] LABS: Platelet Estimate Normal (Normal)
[2016-08-08] MEDS: Metoprolol XL (24 HR) Succ 25 MG TAB.ER.24H PO SCH (07:47)
[2016-08-08] MEDS: Furosemide 40 MG/4 ML VIAL IVP SCH ×2 (07:47→17:00)
[2016-08-08] MEDS: Isosorbide MONOnitrate (24 HR) 30 MG TAB.ER.24H PO SCH (07:48)
[2016-08-08] MEDS: Aspirin 81 MG TAB.CHEW PO SCH (07:49)
[2016-08-08] MEDS: amLODIPine 5 MG TABLET PO SCH (07:49)
[2016-08-08] MEDS ORDERED: Famotidine 20 MG TABLET PO PRN (12:46)
--- NOTE | 2016-08-08 12:46 | Internal Med Progress Note ---
Date of Encounter: 08/08/16 Time of Encounter: 12:46 - Assessment and plan (1) Acute exacerbation of CHF (congestive heart failure) Current Visit: Yes Status: Acute Assessment and plan: BNP WNL ECHO with normal EF moderate diastolic dysfunction Change lasix to po Continue to monitor I/O strictly, cardiac fluid restriction diet, daily weight checks, Possible d./c a.m depending on clinical outcome Qualifiers: Congestive heart failure type: systolic Qualified Code(s): I50.23 - Acute on chronic systolic (congestive) heart failure (2) CAD (coronary artery disease) Current Visit: Yes Status: Chronic Assessment and plan: Chronic stable Qualifiers: Coronary Disease-Associated Artery/Lesion type: unspecified vessel or lesion type [place] vs. transplanted heart: unspecified whether [place] or transplanted heart Associated angina: angina presence unspecified Qualified Code(s): I25.10 - Atherosclerotic heart disease of [place] coronary artery without angina pectoris (3) Hyperlipidemia Current Visit: Yes Status: Chronic Assessment and plan: Continue home meds Qualifiers: Hyperlipidemia type: unspecified Qualified Code(s): E78.5 - Hyperlipidemia , unspecified (4) CKD (chronic kidney disease) stage 4, GFR 15-29 ml/min Current Visit: Yes Status: Chronic Assessment and plan: Cr stable and at baseline, monitor closely (5) Tobacco abuse Current Visit: Yes Status: Chronic Assessment and plan: NRT prn (6) Elevated d-dimer Current Visit: Yes Status: Acute Assessment and plan: Doppler negative VQ scan with low probability for PE (7) Dementia Current Visit: Yes Status: Chronic Assessment and plan: Oriented to person only Fall risk, ensure fall precautions PT/OT recommends 24 hr supervision at home or ECF placement SW consulted Continue home meds Qualifiers: Dementia type: unspecified type Dementia behavioral disturbance: without behavioral disturbance Qualified Code(s): F03.90 - Unspecified dementia without behavioral disturbance (8) Pneumonia Current Visit: Yes Status: Acute Assessment and plan: Unspecified organiusm Blood cultures preliminary negative Continue Ceftriaxone and azithromycin. day 2 Qualifiers: Pneumonia type: due to unspecified organism Laterality: right Lung location: lower lobe of lung Qualified Code(s): J18.1 - Lobar pneumonia, unspecified organism - Subjective Interval history: 70 Y/O M with advanced dementia on admission for CHF exacerbation, pneumonia Seen and evaluated at bedside Denies new complains Oriented to person only Awaiting VQ scan Doppler negative for DVT or SVT ECHO noted, normal EF, moderate diastolic dysfunction, no WMA - Constitutional Vitals: Temp Pulse Resp BP Pulse Ox 98.2 F 58 16 141/63 92 08/08/16 11:14 08/08/16 11:14 08/08/16 11:14 08/08/16 11:14 08/08/16 11:14 General appearance: Present: A&O X 1, pleasant, no acute distress - Head Head exam: Present: atraumatic, normocephalic - Eye Eye exam: Present: PERRL, conjuntiva pink, sclera anicteric Pupils: Present: PERRL - Neck Neck exam general surgery: Present: supple, trachea midline. Absent: lymphadenopathy - Respiratory Respiratory exam: Present: CTAB. Absent: accessory muscle use, rales, rhonchi, wheezes - Cardiovascular Cardiovascular exam: Present: RRR, +S1, +S2. Absent: diastolic murmur, gallop, rubs, systolic murmur - GI/Abdominal GI/Abdominal exam: Present: normal bowel sounds, soft, no peritoneal signs. Absent: distended, tenderness - Extremities Exam Extremities exam: Present: warm, radial pulses palpable and symetrical. Absent : calf tenderness, cyanotic, pedal edema - Neurological Exam Neurological exam: Present: alert, CN II-XII intact, no focal deficits. Absent : oriented X3, pronater drift, facial droop, speech deficit - Skin Skin exam: Present: dry, intact Internal Medicine: Result - Labs CBC & Chem 7: 08/08/16 04:58 08/08/16 04:58 Labs: Short CBC 08/08/16 Range/Units 04:58 WBC 7.7 (4.3-11.1) K/mcL Hgb 10.6 L (12.9-16.9) g/dL Hct 33.1 L (37.5-50.1) % Plt Count 140 (140-400) K/mcL Neutrophils # 4.7 (1.6-8.9) K/mcL BMP 08/08/16 04:58 Sodium 139 Potassium 4.8 H Chloride 106 Carbon Dioxide 22 BUN 56 H Creatinine 3.75 H Glucose 85 Calcium 8.8 Consult Discharge Plan - Plan [facility]errals: [facility] [Primary Care Provider] -
[2016-08-08] MEDS: Lidocaine 4% CREAM (LMX) 5 GM TP SCH ×2 (14:16→20:08)
[2016-08-08] MEDS: Artificial Tears SOLN 15 ML BOTTLE BOTH EYES SCH ×3 (14:16→20:08)
[2016-08-08] MEDS: Calcium Acetate 667 MG CAPSULE PO SCH (16:58)
--- NOTE | 2016-08-08 17:56 | Venous Imaging Report ---
LE Venous Duplex Patient Name:Сергей Pal Order Number:[id number] Procedure Date:08/07/2016 Date:5Age:70 yrs Gender:Male Location:[facility] Room #: [id number] [place]:Diego Wilburn RN Referring MD:Sudeep Carter MD bait painter:[facility] Reading MD:Yuan Hampton MD Primary Indications:Elevated D-Dimer Secondary Indications: Risk Factors Yes/No Smoking Current No Anticoagulants Yes Previous Vascular Surgery Yes Hx of DVT No Hx of Chemotherapy No Trauma to Veins No Recent Surgery No Hx of Superficial Phlebitis No [place] Filter No Impressions: Bilateral lower extremity: normal superficial and deep exam. Recommendations: Test completed on 08/07/2016 at 10:35:00 am. Findings Venous Duplex Results: Right: Venous imaging of the lower extremity reveals full patency and normal vessel compressibility of the right distal iliac, right common femoral, right superficial femoral, right popliteal, right posterior tibial, right peroneal and right lesser saphenous. Doppler signals in the evaluated veins were normal. Left: Venous imaging of the lower extremity reveals full patency and normal vessel compressibility of the left distal iliac, left common femoral, left superficial femoral, left popliteal, left posterior tibial, left peroneal, left great saphenous and left lesser saphenous. Doppler signals in the evaluated veins were normal. Prior Study: No prior study available for comparison. Lower Extremity Venous Duplex Side Vein Compress Spontaneous Flow Augment Diameter (cm) Depth (cm) Right Distal Iliac Normal Yes Phasic Yes Right Common Femoral Normal Yes Phasic Yes Right Superficial Femoral Normal Yes Phasic Yes Right Popliteal Normal Yes Phasic Yes Right Posterior Tibial Normal Yes Phasic Yes Right Peroneal Normal Yes Phasic Yes Right Great Saphenous Right Lesser Saphenous Normal Yes Phasic Yes Left Distal Iliac Normal Yes Phasic Yes Left Common Femoral Normal Yes Phasic Yes Left Superficial Femoral Normal Yes Phasic Yes Left Popliteal Normal Yes Phasic Yes Left Posterior Tibial Normal Yes Phasic Yes Left Peroneal Normal Yes Phasic Yes Left Great Saphenous Normal Yes Phasic Yes Left Lesser Saphenous Normal Yes Phasic Yes Updated by Yuan Hampton MD on 08/08/2016 5:49:40 PM electronically signed on 08/08/2016 5:50:01 PM with status of Final
[2016-08-08] MEDS: Pregabalin 50 MG CAPSULE PO SCH (20:06)
[2016-08-08] MEDS: Cholecalciferol (D-3) 1,000 UNIT TABLET PO SCH (20:07)
[2016-08-08] MEDS ORDERED: NUT TX IMPAIRED DIGEST FXN PO SCH (21:00)
[2016-08-08] MEDS ORDERED: rOPINIRole 1 MG TABLET PO SCH (21:00)
[2016-08-09] MEDS: Azithromycin 500 MG in D5% in Water 250 ML IVPB SCH (00:57)
[2016-08-09] MEDS: Furosemide 40 MG/4 ML VIAL IVP SCH (08:01)
[2016-08-09] MEDS: Pregabalin 50 MG CAPSULE PO SCH (08:02)
[2016-08-09] MEDS: Calcium Acetate 667 MG CAPSULE PO SCH ×2 (08:02→11:34)
[2016-08-09] MEDS: Isosorbide MONOnitrate (24 HR) 30 MG TAB.ER.24H PO SCH (08:02)
[2016-08-09] MEDS: Cholecalciferol (D-3) 1,000 UNIT TABLET PO SCH (08:02)
[2016-08-09] MEDS: Aspirin 81 MG TAB.CHEW PO SCH (08:02)
[2016-08-09] MEDS: amLODIPine 5 MG TABLET PO SCH (08:02)
[2016-08-09] MEDS: Metoprolol XL (24 HR) Succ 25 MG TAB.ER.24H PO SCH (08:03)
[2016-08-09] MEDS: Lidocaine 4% CREAM (LMX) 5 GM TP SCH (08:04)
[2016-08-09] MEDS: Artificial Tears SOLN 15 ML BOTTLE BOTH EYES SCH ×2 (08:04→11:34)
[2016-08-09] MEDS ORDERED: Tiotropium 18 MCG inhalation IH SCH (09:00)
[2016-08-09 10:55] VITALS: BP 93/49
--- NOTE | 2016-08-09 11:51 | Discharge Summary ---
Date of Encounter: 08/09/16 Time of Encounter: 11:50 - Discharge Diagnosis (1) Acute exacerbation of CHF (congestive heart failure) Priority: Primary Status: Acute Qualifiers: Congestive heart failure type: diastolic Qualified Code(s): I50.33 - Acute on chronic diastolic (congestive) heart failure (2) CAD (coronary artery disease) Priority: Secondary Status: Chronic Qualifiers: Coronary Disease-Associated Artery/Lesion type: unspecified vessel or lesion type [place] vs. transplanted heart: unspecified whether [place] or transplanted heart Associated angina: angina presence unspecified Qualified Code(s): I25.10 - Atherosclerotic heart disease of [place] coronary artery without angina pectoris (3) Hyperlipidemia Priority: Secondary Status: Chronic Qualifiers: Hyperlipidemia type: unspecified Qualified Code(s): E78.5 - Hyperlipidemia , unspecified (4) CKD (chronic kidney disease) stage 4, GFR 15-29 ml/min Priority: Secondary Status: Chronic (5) Tobacco abuse Priority: Secondary Status: Chronic (6) Elevated d-dimer Priority: Primary Status: Acute (7) Dementia Priority: Secondary Status: Chronic Qualifiers: Dementia type: unspecified type Dementia behavioral disturbance: without behavioral disturbance Qualified Code(s): F03.90 - Unspecified dementia without behavioral disturbance (8) Pneumonia Priority: Primary Status: Acute Qualifiers: Pneumonia type: due to unspecified organism Laterality: right Lung location: lower lobe of lung Qualified Code(s): J18.1 - Lobar pneumonia, unspecified organism - Discharge Medications Prescriptions: Azithromycin [Zithromax Tri-Jose Alejandro] 500 mg PO DAILY #2 tablet Cefdinir [Omnicef] 300 mg PO BID #10 capsule GuaiFENesin/Pseudophedrine [Mucinex D] 1 each PO BID #10 tab.er.12h Home Medications: Calcium Acetate [Phos-LO] 667 mg PO TIDWM 03/09/15 [History] Ranitidine HCl [Zantac] 150 mg PO DAILY PRN 03/09/15 [History] Aspirin 81 mg PO DAILY tab.chew 03/15/15 [Rx] Allopurinol [Zyloprim 100 MG] 200 mg PO DAILY 07/05/15 [History] Amlodipine [Norvasc] 5 mg PO DAILY 07/05/15 [History] Atorvastatin [Lipitor] 80 mg PO HS 07/05/15 [History] Cetirizine HCl [Zyrtec] 5 mg PO DAILY PRN 07/05/15 [History] Clopidogrel [Plavix] 75 mg PO DAILY 07/05/15 [History] Furosemide [Lasix] 40 mg PO BID 07/05/15 [History] Loperamide [Imodium] 2 mg PO TID PRN 07/05/15 [History] Nitroglycerin [Nitrostat] 0.4 mg SL Q5M PRN 07/05/15 [History] Sertraline [Zoloft] 50 mg PO QAM 07/05/15 [History] Carboxymethylcellulos/Glycerin [Refresh Optive Gel Eye Drops] 1 drop BOTH EYES QID 04/07/16 [History] Cholecalciferol (D-3) [Vitamin D] 1,000 unit PO BID 04/07/16 [History] Lidocaine 4% CRM (LMX) [Lmx 4] 1 appl TP TID 04/07/16 [History] Potassium Chloride [K-Tab ER] 10 meq PO DAILY MDD ON HOLD 04/07/16 [History] Pregabalin [Lyrica] 50 mg PO BID 04/07/16 [History] Ropinirole [Requip] 1 mg PO HS 04/07/16 [History] Tiotropium [Spiriva] 2 puff IH DAILY 04/07/16 [History] Metoprolol XL (24 HR) Succ [Toprol Xl] 12.5 mg PO DAILY #30 tab.er.24h 04/10/16 [Rx] Nut.tx.impaired Digest Fxn [Ensure Clear] 1 bottle PO BID 05/12/16 [History] Isosorbide MONOnitrate (24 HR) [Imdur] 30 mg PO DAILY #30 tab.er.24h 05/16/16 [ Rx] Azithromycin [Zithromax Tri-Jose Alejandro] 500 mg PO DAILY #2 tablet 08/09/16 [Rx] Cefdinir [Omnicef] 300 mg PO BID #10 capsule 08/09/16 [Rx] GuaiFENesin/Pseudophedrine [Mucinex D] 1 each PO BID #10 tab.er.12h 08/09/16 [Rx ] Allergies/Adverse Reactions: Allergies morphine Allergy (Unknown, Verified 05/12/16 15:59) Rash ampicillin [From Unasyn] Allergy (Verified 05/12/16 15:59) Hives heparin Allergy (Verified 08/06/16 21:04) See Comments sulbactam [From Unasyn] Allergy (Verified 05/12/16 15:59) Hives Date of admission: 08/07/16 01:53 Primary care physician: PCP KATY Consults: 08/08/16 11:09 Consult to Occupational Therapy [CONS] Routine Comment: Evaluate, develop and implement POC Reason for Consult: weakness Consult to Physical Therapy [CONS] Routine Comment: Evaluate, develop and implement POC Reason for Consult: weakness Consult to Cashier Or Checker Stock Clerk [CONS] Routine Reason for SW Consult: possible ECF placement Discharging clinician: Marco Parker Anticipated date of discharge: 08/09/16 - Patient Status Disposition: Home, Self-Care Condition: Fair Functional capacity at discharge: uses cane/walker - Discharge Instructions Instructions: Guaifenesin (By mouth), Azithromycin (By mouth), Cefdinir (By mouth), Heart Failure (DC) [facility]: [facility] [Primary Care Provider[facility] - Forms: ED Satisfaction Letter Additional Instructions: Follow-up appointments: If there is not an appointment listed below, please call your physician and schedule a follow-up appointment. If you have congestive heart failure and your symptoms return, make an appointment with your physician. Medication List: Carry an up to date list of medications you are taking at all time. We have given you an updated medication list including any new medications that you have been prescribed. Please provide that list to your primary provider Symptoms: If your condition changes or you experience any of the following symptoms, notify your physician immediately: Unusual or worsening pain, fever, persistent nausea and vomiting, bleeding, increase in swelling (especially in your legs), sudden weight gain, extreme dizziness, chest pain, increased drainage or redness from a wound or incision. Go to the emergency department if you experience a problem with breathing. Weights: If you have a history of swelling or shortness of breath, weigh yourself daily and notify your physician if you have a weight gain of two or more pounds in one day or 5 or more pounds in a week. If you experience any of the warning signs for stroke: Sudden numbness or weakness of the face, arm or leg; especially on one side of the body, sudden confusion, trouble speaking or understanding, sudden trouble seeing in one or both eyes, sudden trouble walking, dizziness, loss of balance or coordination, sudden sever headache with no cause; Call 911 or go to the emergency room. Stroke is a medical emergency. Some risk factors for stroke: Age, cigarette smoking, diabetes, excessive alcohol consumption, family history , high blood pressure, overweight, physical inactivity, prior stroke, heart attack, diagnosis of carotid artery stenosis or other artery disease. If you smoke, STOP: Smoking or tobacco use significantly increases your risk of heart and lung disease. Your chance of disease greatly increases if you continue to smoke. For more information, call the [place] tobacco quit line for smoking cessation QUIT-NOW ( ) - Diet and Activity Activity: resume usual activities as tolerated Diet: low salt diet Interval History: See below Hospital course: Mr. Pal is a 70 year old male with advanced dementia who resides with his daughter and grandaughters He was admitted for management of Pneumonia, following a complaint of shortness of breath and leg swelling. He was transferred to this facility from the [place] to this facility On arrival, Vital signs were stable and patient is oriented to self only, he had very minimal pedal edema and chest exam was remarkable for right base rhonchi CXR showed R pneumonia and pleural effusion. Work up revealed CBC ad Chem at baseline, however, patient had elevated D- dimers. BNP was normal Patient did not require any additional oxygen supplementation VQ scan showed low probability for PE , and Doppler of lower extremities was negative for DVT Patient was admitted and managed with diuretics, IV antibiotics and fluid restriction. He has made significant improvement and is stable to return home with family. PT /OT recommends 24 hr supervision and family has affirmed yessicay are able to take care of him He will complete 4 more days of Omnicef and 2 more days of azithromycin Other chronic conditions are stable and home medications have been resumed Strongly encouraged to follow up with PCP Time spent discussing smoking cessation with patient: 3 to 10 minutes (3 minutes spent counselling on smoking cessation) - Time Spent with Patient Total time spent providing and/or coordinating discharge services: Less than 30 minutes - Constitutional Vitals: Temp Pulse Resp BP Pulse Ox 98.1 F 63 16 93/49 94 08/09/16 10:54 08/09/16 10:54 08/09/16 10:54 08/09/16 10:54 08/09/16 10:54 General appearance: Present: A&O X 1, pleasant, no acute distress - Head Head exam: Present: atraumatic, normocephalic - Eye Eye exam: Present: PERRL, conjuntiva pink, sclera anicteric Pupils: Present: PERRL - Neck Neck exam general surgery: Present: normal inspection - Respiratory Respiratory exam: Present: rhonchi - Cardiovascular Cardiovascular exam: Present: RRR, +S1, +S2. Absent: diastolic murmur, gallop, rubs, systolic murmur - GI/Abdominal GI/Abdominal exam: Present: normal bowel sounds, soft, no peritoneal signs. Absent: distended, tenderness - Extremities Exam Extremities exam: Present: warm, radial pulses palpable and symetrical. Absent : calf tenderness, cyanotic, pedal edema - Neurological Exam Neurological exam: Present: alert, CN II-XII intact, no focal deficits. Absent : oriented X3, pronater drift, facial droop, speech deficit - Skin Skin exam: Present: dry, intact
[2016-08-09] MEDS ORDERED: GuaiFENesin Liq 200 MG/10 ML UDC PO SCH (18:00)
== END 2016-08-09 14:53 | disposition home or self-care (01) | DRG 291 ==
LOC: EMEROO 20:55 → 3BNU 20:55
PROVIDERS: ADMIT Nurse Practitioner Family; ATTEND Nurse Practitioner Family